=== PATIENT | male | born 1980 | race Caucasian/White ===

== ENCOUNTER 2020-08-03 14:15 | Outpatient (REF) | payer OTHER, SELFPAY ==
[2020-08-03 15:01] LABS: COVID-19 Test Negative (Negative)
== END 2020-08-03 14:16 | disposition home or self-care (01) ==
LOC: HO.EMPCOV 14:15
PROVIDERS: Visit Provider Internal Medicine
DX: Z20.828 Contact with and (suspected) exposure to other viral communicable diseases (principal)
CPT/HCPCS: 87635; C9803

== ENCOUNTER 2020-08-13 14:50 | Outpatient (REF) | payer OTHER, SELFPAY ==
[2020-08-13 15:09] LABS: COVID-19 Test Negative (Negative); IDNOW Serial# 55D5AD1C
== END 2020-08-13 14:51 | disposition home or self-care (01) ==
LOC: HO.EMPCOV 14:50
PROVIDERS: PCP Nurse Practitioner Family; Visit Provider Internal Medicine
DX: Z20.828 Contact with and (suspected) exposure to other viral communicable diseases (principal)
CPT/HCPCS: 87635; C9803

== ENCOUNTER 2020-08-26 09:43 | Outpatient (REF) | payer OTHER, SELFPAY ==
[2020-08-26 10:13] LABS: COVID-19 Test Negative (Negative); IDNOW Serial# 55D5AD1C
== END 2020-08-26 09:44 | disposition home or self-care (01) ==
LOC: HO.EMPCOV 09:43
PROVIDERS: Visit Provider Internal Medicine
DX: Z20.828 Contact with and (suspected) exposure to other viral communicable diseases (principal)
CPT/HCPCS: 87635; C9803

== ENCOUNTER 2020-09-21 11:21 | Outpatient (REF) | payer OTHER, SELFPAY ==
[2020-09-21 12:00] LABS: COVID-19 Test Negative (Negative)
== END 2020-09-21 11:22 | disposition home or self-care (01) ==
LOC: HO.EMPCOV 11:21
PROVIDERS: Visit Provider Internal Medicine
DX: Z20.822 Contact with and (suspected) exposure to COVID-19 (principal)
CPT/HCPCS: 36415; 87635; C9803

== ENCOUNTER 2020-10-23 15:09 | Outpatient (REF) | payer OTHER, SELFPAY ==
[2020-10-23 16:28] LABS: MANUAL DIFF FLAG NO
[2020-10-23 16:35] LABS: Basophils Absolute Auto 0.1 X10*3/uL (0.0-0.2); Basophils Percent Auto 0.7 % (0-2); Eosinophils Absolute Auto 0.3 X10*3/uL (0.0-0.4); Eosinophils Percent Auto 4.3 % (0-4); Hematocrit 43.4 % (42-52); Hemoglobin 15.3 g/dl (14.0-18.0); Imm Gran Abs Auto 0.01 X10*3/uL (0.00-0.03); Imm Gran Pct Auto 0.1 % (0.0-0.4); Mean Corpuscular HGB Conc 35.3 g/dl (31.0-36.0); Mean Corpuscular Hemoglobin 31.7 pg (27.0-33.0); Mean Platelet Volume 11.5 fL (9.4-12.4); Monocytes Absolute Auto 0.8 X10*3/uL (0.1-1.2); Monocytes Percent Auto 12.1 % (2-11); Neutrophils Absolute Auto 3.6 X10*3/uL (2.0-8.3); Neutrophils Percent Auto 53.8 % (45-73); Platelet Count 188 X10*3/uL (160-400); Red Blood Count 4.82 X10*6/uL (4.60-5.80); White Blood Count 6.7 X10*3/uL (4.8-10.8)
[2020-10-23 17:03] LABS: Alanine Aminotransferase 108 U/L (0-40); Albumin Level 4.6 g/dL (3.5-5.0); Alkaline Phosphatase 45 U/L (39-117); Anion Gap 13 (12-20); Aspartate Amino Transferase 42 U/L (5-37); Bilirubin Total 0.8 mg/dL (0.0-1.0); Blood Urea Nitrogen 18 mg/dL (9-16); C Reactive Protein 0.04 mg/dL (< or = 0.50); Calcium 9.4 mg/dL (8.4-10.2); Carbon Dioxide 26 mmol/L (22-29); Chloride 105 mmol/L (96-108); Estimated Glomerular Filt Rate > 60; Glucose Random 97 mg/dL (60-115); Potassium 4.2 mmol/L (3.3-5.1); Sodium 140 mmol/L (135-145); Total Protein 6.8 g/dL (6.5-8.0)
[2020-10-23 17:43] LABS: Erythrocyte Sedimentation Rate 2 MM/HR (0-15)
== END 2020-10-23 15:10 | disposition home or self-care (01) ==
LOC: HO.LAB 15:09
PROVIDERS: PCP Nurse Practitioner Family; Visit Provider Student in an Organized Health Care Education/Training Program
DX: M05.9 Rheumatoid arthritis with rheumatoid factor, unspecified (principal); L40.9 Psoriasis, unspecified; Z79.899 Other long term (current) drug therapy
CPT/HCPCS: 36415; 80053; 85025; 85652; 86140

== ENCOUNTER 2020-11-24 08:48 | Outpatient (REF) | payer OTHER, SELFPAY ==
[2020-11-24 10:29] LABS: Alanine Aminotransferase 70 U/L (0-40); Albumin Level 4.7 g/dL (3.5-5.0); Alkaline Phosphatase 41 U/L (39-117); Anion Gap 15 (12-20); Aspartate Amino Transferase 43 U/L (5-37); Bilirubin Total 1.1 mg/dL (0.0-1.0); Blood Urea Nitrogen 15 mg/dL (9-16); Calcium 9.6 mg/dL (8.4-10.2); Carbon Dioxide 28 mmol/L (22-29); Chloride 105 mmol/L (96-108); Estimated Glomerular Filt Rate > 60; Glucose Random 93 mg/dL (60-115); Potassium 4.7 mmol/L (3.3-5.1); Sodium 143 mmol/L (135-145); Total Protein 6.8 g/dL (6.5-8.0)
== END 2020-11-24 08:49 | disposition home or self-care (01) ==
LOC: HO.LAB 08:48
PROVIDERS: PCP Nurse Practitioner Family; Visit Provider Student in an Organized Health Care Education/Training Program
DX: M05.9 Rheumatoid arthritis with rheumatoid factor, unspecified (principal)
CPT/HCPCS: 36415; 80053

== ENCOUNTER 2020-12-04 12:52 | Outpatient (REF) | payer OTHER, SELFPAY ==
--- NOTE | ~2020-12-04 | MR_ITS ---
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 COMPARISON: None available. TECHNIQUE: Multiplanar, multisequence imaging of the brain was performed without intravenous contrast. FINDINGS: There is no acute infarction, mass, hemorrhage, or extra-axial collection. The ventricles, sulci, and basilar cisterns are normal in size and configuration. The cerebellar tonsils are normally positioned above the foramen magnum. The flow voids of the major intracranial arteries appear intact. The bones and extracranial soft tissues are unremarkable. There is minimal paranasal sinus mucosal thickening without fluid levels. No mastoid fluid is seen. The orbital contents appear grossly normal. MR/MR head/brain wo con IMPRESSION: No intracranial abnormality identified.
== END 2020-12-04 12:53 | disposition home or self-care (01) ==
LOC: HO.MRI 12:52
PROVIDERS: Visit Provider Nurse Practitioner Family
DX: G43.509 Persistent migraine aura without cerebral infarction, not intractable, without status migrainosus (principal)
CPT/HCPCS: 70551

== ENCOUNTER → 2021-01-19 15:01 | Outpatient (BNVA) | payer OTHER, SELFPAY | PROVIDERS: PCP Nurse Practitioner Family; Referring Provider Nurse Practitioner Family; Visit Provider Internal Medicine Cardiovascular Disease | DX: I25.10 Atherosclerotic heart disease of native coronary artery without angina pectoris (principal); I10 Essential (primary) hypertension | CPT/HCPCS: 93005 ==

== ENCOUNTER → 2021-01-26 15:00 | Outpatient (BNVA) | payer OTHER, SELFPAY | PROVIDERS: Visit Provider Student in an Organized Health Care Education/Training Program | DX: M05.9 Rheumatoid arthritis with rheumatoid factor, unspecified (principal) ==

== ENCOUNTER 2021-03-26 09:11 | Outpatient (REF) | payer OTHER, SELFPAY ==
[2021-03-26 10:12] LABS: MANUAL DIFF FLAG NO
[2021-03-26 10:19] LABS: Basophils Percent Auto 0.4 % (0-2); Eosinophils Absolute Auto 0.2 X10*3/uL (0.0-0.4); Eosinophils Percent Auto 2.2 % (0-4); Hematocrit 46.9 % (42-52); Hemoglobin 16.2 g/dl (14.0-18.0); Imm Gran Abs Auto 0.02 X10*3/uL (0.00-0.03); Imm Gran Pct Auto 0.3 % (0.0-0.4); Lymphocytes Absolute Auto 1.8 X10*3/uL (1.2-4.9); Lymphocytes Percent Auto 25.1 % (20-40); Mean Corpuscular HGB Conc 34.5 g/dl (31.0-36.0); Mean Corpuscular Hemoglobin 30.7 pg (27.0-33.0); Mean Corpuscular Volume 88.8 fL (80-98); Mean Platelet Volume 10.8 fL (9.4-12.4); Monocytes Absolute Auto 0.8 X10*3/uL (0.1-1.2); Monocytes Percent Auto 11.6 % (2-11); Neutrophils Absolute Auto 4.2 X10*3/uL (2.0-8.3); Neutrophils Percent Auto 60.4 % (45-73); Platelet Count 199 X10*3/uL (160-400); Red Blood Count 5.28 X10*6/uL (4.60-5.80); Red Cell Distribution Width 13.2 % (11.0-16.0)
[2021-03-26 10:42] LABS: Alanine Aminotransferase 61 U/L (0-40); Albumin Level 4.5 g/dL (3.5-5.0); Alkaline Phosphatase 45 U/L (39-117); Anion Gap 12 (12-20); Aspartate Amino Transferase 26 U/L (5-37); Bilirubin Total 1.1 mg/dL (0.0-1.0); Blood Urea Nitrogen 12 mg/dL (9-16); C Reactive Protein 0.05 mg/dL (< or = 0.50); Calcium 9.7 mg/dL (8.4-10.2); Carbon Dioxide 26 mmol/L (22-29); Chloride 107 mmol/L (96-108); Estimated Glomerular Filt Rate > 60; Glucose Random 90 mg/dL (60-115); Potassium 4.2 mmol/L (3.3-5.1); Sodium 141 mmol/L (135-145); Total Protein 6.9 g/dL (6.5-8.0)
== END 2021-03-26 09:12 | disposition home or self-care (01) ==
LOC: HO.LAB 09:11
PROVIDERS: Visit Provider Student in an Organized Health Care Education/Training Program
DX: M05.9 Rheumatoid arthritis with rheumatoid factor, unspecified (principal)
CPT/HCPCS: 36415; 80053; 85025; 86140

== ENCOUNTER → 2021-03-30 08:26 | Outpatient (BNVA) | payer OTHER, SELFPAY | PROVIDERS: PCP Nurse Practitioner Family; Visit Provider Student in an Organized Health Care Education/Training Program ==

== ENCOUNTER → 2021-05-26 08:41 | Outpatient (BNVA) | payer OTHER, SELFPAY | PROVIDERS: PCP Nurse Practitioner Family; Visit Provider Internal Medicine Pulmonary Disease ==

== ENCOUNTER → 2021-06-18 08:05 | Outpatient (BNVA) | payer OTHER, SELFPAY | PROVIDERS: PCP Nurse Practitioner Family; Visit Provider Nurse Practitioner Family ==

== ENCOUNTER → 2021-07-07 15:57 | Outpatient (REF) | payer OTHER, SELFPAY | LOC: HO.SL 15:57 | PROVIDERS: Visit Provider Internal Medicine Pulmonary Disease | DX: G47.30 Sleep apnea, unspecified (principal) | CPT/HCPCS: 95806 ==

== ENCOUNTER → 2021-09-22 14:23 | Outpatient (BNVA) | payer OTHER, SELFPAY | PROVIDERS: PCP Nurse Practitioner Family; Visit Provider Nurse Practitioner Family ==

== ENCOUNTER 2021-09-27 09:44 | Outpatient (REF) | payer OTHER, SELFPAY ==
[2021-09-27 09:55] LABS: MANUAL DIFF FLAG NO
[2021-09-27 10:20] LABS: Basophils Absolute Auto 0.1 X10*3/uL (0.0-0.2); Basophils Percent Auto 0.7 % (0-2); Eosinophils Absolute Auto 0.4 X10*3/uL (0.0-0.4); Eosinophils Percent Auto 5.2 % (0-4); Hematocrit 42.6 % (42.0-52.0); Hemoglobin 14.9 g/dl (14.0-18.0); Imm Gran Abs Auto 0.01 X10*3/uL (0.00-0.03); Imm Gran Pct Auto 0.1 % (0.0-0.4); Lymphocytes Absolute Auto 1.8 X10*3/uL (1.2-4.9); Lymphocytes Percent Auto 26.9 % (20-40); Mean Corpuscular Hemoglobin 30.4 pg (27.0-33.0); Mean Corpuscular Volume 86.9 fL (80.0-98.0); Mean Platelet Volume 10.9 fL (9.4-12.4); Monocytes Absolute Auto 0.7 X10*3/uL (0.1-1.2); Monocytes Percent Auto 10.7 % (2-11); Neutrophils Absolute Auto 3.8 x10*3/uL (2.0-8.3); Neutrophils Percent Auto 56.4 % (45-73); Platelet Count 186 X10*3/uL (160-400); Red Cell Distribution Width 13.4 % (11.0-16.0); White Blood Count 6.7 X10*3/uL (4.8-10.8)
[2021-09-27 11:01] LABS: Alanine Aminotransferase 92 U/L (0-40); Albumin Level 4.2 g/dL (3.5-5.0); Alkaline Phosphatase 46 U/L (39-117); Anion Gap 10 (12-20); Aspartate Amino Transferase 49 U/L (5-37); Bilirubin Total 0.8 mg/dL (0.0-1.0); Blood Urea Nitrogen 15 mg/dL (9-16); Calcium 9.7 mg/dL (8.4-10.2); Carbon Dioxide 28 mmol/L (22-29); Chloride 108 mmol/L (96-108); Estimated Glomerular Filt Rate > 60; Glucose Random 86 mg/dL (60-115); Potassium 4.1 mmol/L (3.3-5.1); Sodium 142 mmol/L (135-145); Total Protein 7.1 g/dL (6.5-8.0)
[2021-09-27 11:14] LABS: Erythrocyte Sedimentation Rate 5 MM/HR (0-15)
== END 2021-09-27 09:45 | disposition home or self-care (01) ==
LOC: HO.LAB 09:44
PROVIDERS: PCP Nurse Practitioner Family; Visit Provider Nurse Practitioner Family
DX: M05.9 Rheumatoid arthritis with rheumatoid factor, unspecified (principal)
CPT/HCPCS: 36415; 80053; 85025; 85652; 86140

== ENCOUNTER → 2021-10-29 08:27 | Outpatient (BNVA) | payer OTHER, SELFPAY | PROVIDERS: PCP Nurse Practitioner Family; Visit Provider Nurse Practitioner Family ==

== ENCOUNTER 2021-11-05 09:04 | Outpatient (REF) | payer OTHER, SELFPAY ==
[2021-11-05 09:33] LABS: MANUAL DIFF FLAG NO
[2021-11-05 10:25] LABS: Basophils Absolute Auto 0.1 X10*3/uL (0.0-0.2); Basophils Percent Auto 0.9 % (0-2); Eosinophils Absolute Auto 0.3 X10*3/uL (0.0-0.4); Eosinophils Percent Auto 4.2 % (0-4); Hematocrit 44.8 % (42.0-52.0); Hemoglobin 15.8 g/dl (14.0-18.0); Imm Gran Abs Auto 0.01 X10*3/uL (0.00-0.03); Imm Gran Pct Auto 0.2 % (0.0-0.4); Lymphocytes Absolute Auto 1.7 X10*3/uL (1.2-4.9); Lymphocytes Percent Auto 25.8 % (20-40); Mean Corpuscular HGB Conc 35.3 g/dl (31.0-36.0); Mean Corpuscular Hemoglobin 30.4 pg (27.0-33.0); Mean Corpuscular Volume 86.2 fL (80.0-98.0); Mean Platelet Volume 11.3 fL (9.4-12.4); Monocytes Absolute Auto 0.8 X10*3/uL (0.1-1.2); Monocytes Percent Auto 11.4 % (2-11); Neutrophils Absolute Auto 3.8 x10*3/uL (2.0-8.3); Neutrophils Percent Auto 57.5 % (45-73); Platelet Count 192 X10*3/uL (160-400); Red Cell Distribution Width 13.2 % (11.0-16.0); White Blood Count 6.6 X10*3/uL (4.8-10.8)
[2021-11-05 10:51] LABS: Alanine Aminotransferase 87 U/L (0-40); Albumin Level 4.5 g/dL (3.5-5.0); Alkaline Phosphatase 50 U/L (39-117); Anion Gap 10 (12-20); Aspartate Amino Transferase 42 U/L (5-37); Bilirubin Total 1.1 mg/dL (0.0-1.0); Blood Urea Nitrogen 15 mg/dL (9-16); C Reactive Protein 0.18 mg/dL (< or = 0.50); Calcium 9.9 mg/dL (8.4-10.2); Carbon Dioxide 28 mmol/L (22-29); Chloride 107 mmol/L (96-108); Estimated Glomerular Filt Rate > 60; Glucose Random 79 mg/dL (60-115); Potassium 4.4 mmol/L (3.3-5.1); Sodium 141 mmol/L (135-145); Total Protein 7.5 g/dL (6.5-8.0)
[2021-11-05 11:03] LABS: Erythrocyte Sedimentation Rate 5 MM/HR (0-15)
[2021-11-05 11:12] LABS: HBS Num1 22.78 mIU/mL (0-7.99); HBc Num1 0.07 S/CO (0.00-0.79); Hepatitis A Antibody IgM 0.27 Index (0-0.79); Hepatitis B Core Antibody Nonreactive (Nonreactive); ~HepC Num1 0.07 S/CO (0.00-0.79); ~Hepatitis A Antibody IgM Nonreactive (Nonreactive); ~Hepatitis B Surface Antibody REACTIVE (Nonreactive); ~Hepatitis C Antibody Nonreactive (Nonreactive)
[2021-11-05 11:13] LABS: HBsAGNum1 0.28 S/CO (0.00-0.99); Hepatitis B Surface Antigen Negative (Negative)
[2021-11-07 19:32] LABS: TS Negative Control Passed; TS Panel A 1; TS Panel B 0; TS Positive Control Passed; TSpotTB Negative (Negative)
== END 2021-11-05 09:05 | disposition home or self-care (01) ==
LOC: HO.LAB 09:04
PROVIDERS: Visit Provider Nurse Practitioner Family
DX: Z11.1 Encounter for screening for respiratory tuberculosis (principal); M05.9 Rheumatoid arthritis with rheumatoid factor, unspecified
CPT/HCPCS: 36415; 80053; 85025; 85652; 86140; 86481; 86704; 86706; 86709; 86803; 87340

== ENCOUNTER → 2021-12-16 08:34 | Outpatient (BNVA) | payer OTHER, SELFPAY | PROVIDERS: PCP Nurse Practitioner Family; Visit Provider Nurse Practitioner Family ==

== ENCOUNTER → 2022-01-20 14:56 | Outpatient (BNVA) | payer OTHER, SELFPAY | PROVIDERS: PCP Nurse Practitioner Family; Referring Provider Nurse Practitioner Family; Visit Provider Internal Medicine Cardiovascular Disease | DX: I25.10 Atherosclerotic heart disease of native coronary artery without angina pectoris (principal) ==

== ENCOUNTER 2022-05-05 08:36 | Outpatient (REF) | payer OTHER, SELFPAY ==
[2022-05-05 08:53] LABS: MANUAL DIFF FLAG NO
[2022-05-05 09:54] LABS: Basophils Absolute Auto 0.1 X10*3/uL (0.0-0.2); Basophils Percent Auto 0.9 % (0-2); Eosinophils Absolute Auto 0.3 X10*3/uL (0.0-0.4); Eosinophils Percent Auto 3.7 % (0-4); Hematocrit 43.4 % (42.0-52.0); Hemoglobin 15.2 g/dl (14.0-18.0); Imm Gran Abs Auto 0.03 X10*3/uL (0.00-0.03); Imm Gran Pct Auto 0.4 % (0.0-0.4); Lymphocytes Absolute Auto 1.3 X10*3/uL (1.2-4.9); Lymphocytes Percent Auto 18.8 % (20-40); Mean Corpuscular Hemoglobin 30.5 pg (27.0-33.0); Mean Corpuscular Volume 87.1 fL (80.0-98.0); Mean Platelet Volume 11.4 fL (9.4-12.4); Monocytes Absolute Auto 0.7 X10*3/uL (0.1-1.2); Monocytes Percent Auto 10.3 % (2-11); Neutrophils Absolute Auto 4.4 x10*3/uL (2.0-8.3); Neutrophils Percent Auto 65.9 % (45-73); Platelet Count 192 X10*3/uL (160-400); Red Blood Count 4.98 X10*6/uL (4.60-5.80); Red Cell Distribution Width 13.2 % (11.0-16.0); White Blood Count 6.7 X10*3/uL (4.8-10.8)
[2022-05-05 10:37] LABS: Alanine Aminotransferase 66 U/L (0-40); Albumin Level 4.5 g/dL (3.5-5.0); Alkaline Phosphatase 57 U/L (39-117); Anion Gap 14 (12-20); Aspartate Amino Transferase 45 U/L (5-37); Bilirubin Total 1.1 mg/dL (0.0-1.0); Blood Urea Nitrogen 15 mg/dL (9-16); C Reactive Protein 0.12 mg/dL (< or = 0.50); Calcium 9.4 mg/dL (8.4-10.2); Carbon Dioxide 26 mmol/L (22-29); Chloride 106 mmol/L (96-108); Cholesterol 83 mg/dL; Estimated Glomerular Filt Rate > 60; Glucose Random 83 mg/dL (60-115); HDL Cholesterol 32 mg/dL; LDL Cholesterol Calculated 41 mg/dl; Potassium 4.3 mmol/L (3.3-5.1); Sodium 142 mmol/L (135-145); Total Protein 6.9 g/dL (6.5-8.0); Triglycerides 50 mg/dL
[2022-05-05 10:38] LABS: Erythrocyte Sedimentation Rate 5 MM/HR (0-15)
[2022-05-07 15:41] LABS: CRP High Sensitivity 1.1 mg/L
== END 2022-05-05 08:37 | disposition home or self-care (01) ==
LOC: HO.LAB 08:36
PROVIDERS: Absent Provider Nurse Practitioner Family; PCP Nurse Practitioner Family; Visit Provider Internal Medicine Cardiovascular Disease
DX: I25.10 Atherosclerotic heart disease of native coronary artery without angina pectoris (principal); E78.5 Hyperlipidemia, unspecified; M05.9 Rheumatoid arthritis with rheumatoid factor, unspecified
CPT/HCPCS: 36415; 80053; 80061; 85025; 85652; 86140; 86141

== ENCOUNTER → 2022-10-05 12:57 | Outpatient (BNVA) | payer OTHER, SELFPAY | PROVIDERS: PCP Nurse Practitioner Family; Visit Provider Nurse Practitioner Family | DX: Z13.89 Encounter for screening for other disorder (principal) ==

== ENCOUNTER 2022-10-10 08:14 | Outpatient (REF) | payer OTHER, SELFPAY ==
[2022-10-10 08:24] LABS: MANUAL DIFF FLAG NO
[2022-10-10 09:29] LABS: Basophils Absolute Auto 0.1 X10*3/uL (0.0-0.2); Basophils Percent Auto 1.1 % (0-2); Eosinophils Absolute Auto 0.6 X10*3/uL (0.0-0.4); Eosinophils Percent Auto 7.2 % (0-4); Hematocrit 46.2 % (42.0-52.0); Hemoglobin 16.1 g/dl (14.0-18.0); Imm Gran Abs Auto 0.03 X10*3/uL (0.00-0.03); Imm Gran Pct Auto 0.4 % (0.0-0.4); Lymphocytes Absolute Auto 1.7 X10*3/uL (1.2-4.9); Lymphocytes Percent Auto 20.4 % (20-40); Mean Corpuscular HGB Conc 34.8 g/dl (31.0-36.0); Mean Corpuscular Hemoglobin 30.7 pg (27.0-33.0); Mean Platelet Volume 11.6 fL (9.4-12.4); Monocytes Percent Auto 11.6 % (2-11); Neutrophils Absolute Auto 4.8 x10*3/uL (2.0-8.3); Neutrophils Percent Auto 59.3 % (45-73); Platelet Count 200 X10*3/uL (160-400); Red Blood Count 5.25 X10*6/uL (4.60-5.80); Red Cell Distribution Width 13.6 % (11.0-16.0); White Blood Count 8.2 X10*3/uL (4.8-10.8)
[2022-10-10 09:58] LABS: Alanine Aminotransferase 64 U/L (0-40); Aspartate Amino Transferase 31 U/L (5-37); C Reactive Protein < 0.10 mg/dL (< or = 0.50); Estimated Glomerular Filt Rate > 60
[2022-10-10 10:09] LABS: Erythrocyte Sedimentation Rate 3 MM/HR (0-15)
== END 2022-10-10 08:15 | disposition home or self-care (01) ==
LOC: HO.LAB 08:14
PROVIDERS: PCP Nurse Practitioner Family; Visit Provider Nurse Practitioner Family
DX: M05.9 Rheumatoid arthritis with rheumatoid factor, unspecified (principal); Z79.899 Other long term (current) drug therapy
CPT/HCPCS: 36415; 82565; 84450; 84460; 85025; 85652; 86140

== ENCOUNTER → 2022-10-11 11:03 | Outpatient (BNVA) | payer OTHER, SELFPAY | PROVIDERS: PCP Nurse Practitioner Family; Visit Provider Nurse Practitioner Family | DX: Z13.89 Encounter for screening for other disorder (principal) ==

== ENCOUNTER → 2022-11-30 15:25 | Outpatient (BNVA) | payer OTHER, SELFPAY | PROVIDERS: PCP Nurse Practitioner Family; Visit Provider Nurse Practitioner Family | DX: Z13.89 Encounter for screening for other disorder (principal) ==

== ENCOUNTER 2023-01-16 10:06 | Outpatient (REF) | payer OTHER, SELFPAY ==
[2023-01-16 10:20] LABS: MANUAL DIFF FLAG NO
[2023-01-16 10:46] LABS: Basophils Absolute Auto 0.1 X10*3/uL (0.0-0.2); Basophils Percent Auto 1.2 % (0-2); Eosinophils Absolute Auto 0.5 X10*3/uL (0.0-0.4); Eosinophils Percent Auto 5.9 % (0-4); Hematocrit 44.7 % (42.0-52.0); Hemoglobin 15.7 g/dl (14.0-18.0); Imm Gran Abs Auto 0.02 X10*3/uL (0.00-0.03); Imm Gran Pct Auto 0.2 % (0.0-0.4); Lymphocytes Absolute Auto 1.9 X10*3/uL (1.2-4.9); Lymphocytes Percent Auto 23.6 % (20-40); Mean Corpuscular HGB Conc 35.1 g/dl (31.0-36.0); Mean Corpuscular Hemoglobin 30.9 pg (27.0-33.0); Mean Platelet Volume 11.1 fL (9.4-12.4); Monocytes Absolute Auto 0.8 X10*3/uL (0.1-1.2); Monocytes Percent Auto 10.2 % (2-11); Neutrophils Absolute Auto 4.8 x10*3/uL (2.0-8.3); Neutrophils Percent Auto 58.9 % (45-73); Platelet Count 185 X10*3/uL (160-400); Red Blood Count 5.08 X10*6/uL (4.60-5.80); Red Cell Distribution Width 13.6 % (11.0-16.0); White Blood Count 8.1 X10*3/uL (4.8-10.8)
[2023-01-16 11:42] LABS: Erythrocyte Sedimentation Rate 2 MM/HR (0-15)
[2023-01-16 11:42] LABS: Alanine Aminotransferase 107 U/L (0-40); Albumin Level 4.5 g/dL (3.5-5.0); Alkaline Phosphatase 46 U/L (39-117); Anion Gap 12 (12-20); Aspartate Amino Transferase 45 U/L (5-37); Bilirubin Total 1.3 mg/dL (0.0-1.0); Blood Urea Nitrogen 13 mg/dL (9-16); C Reactive Protein < 0.10 mg/dL (< or = 0.50); Calcium 9.7 mg/dL (8.4-10.2); Carbon Dioxide 26 mmol/L (22-29); Chloride 107 mmol/L (96-108); Estimated Glomerular Filt Rate > 60; Glucose Random 83 mg/dL (60-115); Potassium 4.4 mmol/L (3.3-5.1); Sodium 141 mmol/L (135-145); Total Protein 6.8 g/dL (6.5-8.0)
== END 2023-01-16 10:07 | disposition home or self-care (01) ==
LOC: HO.LAB 10:06
PROVIDERS: PCP Nurse Practitioner Family; Visit Provider Nurse Practitioner Family
DX: M05.9 Rheumatoid arthritis with rheumatoid factor, unspecified (principal)
CPT/HCPCS: 36415; 80053; 85025; 85652; 86140

== ENCOUNTER → 2023-01-18 13:54 | Outpatient (BNVA) | payer OTHER, SELFPAY | PROVIDERS: PCP Nurse Practitioner Family; Visit Provider Nurse Practitioner Family ==

== ENCOUNTER 2023-03-31 09:13 | Outpatient (REF) | payer OTHER, SELFPAY ==
[2023-03-31 10:30] LABS: Alanine Aminotransferase 88 U/L (0-40); Aspartate Amino Transferase 37 U/L (5-37)
== END 2023-03-31 09:14 | disposition home or self-care (01) ==
LOC: HO.LAB 09:13
PROVIDERS: PCP Nurse Practitioner Family; Visit Provider Nurse Practitioner Family
DX: Z79.899 Other long term (current) drug therapy (principal)
CPT/HCPCS: 36415; 84450; 84460

== ENCOUNTER 2023-04-04 14:18 | Outpatient (AMB) | payer OTHER, SELFPAY ==
[2023-04-04 14:22] VITALS: BP 128/74; PULSE 58; RESP 16; TEMP 36.5; O2SAT 97; BMI 41.8
--- NOTE | 2023-04-04 14:22 | MHC.OFFVIS ---
Intake Vital Signs 04/04/23 14:22 Height 5 ft 7 in Weight 267 lb BMI 41.8 BP 128/74 Blood Pressure Location Rt brachial Position Sitting Respiration 16 Pulse 58 Pulse Source Pulse Oximeter Temp 97.7 F Temp Source Temporal Artery Scan Pulse Oximetry (%) 97 Oxygen Delivery Method Room Air Intake Visit Reasons: Psoriatic arthritis - LVM with appt Allergies No Known Allergies Allergy (Verified 04/04/23 14:27) Medication List - Last Reconciled 04/04/23 by Demario Edwards MD aspirin (Adult Low Dose Aspirin) 81 mg PO DAILY atorvastatin 80 mg PO DAILY certolizumab pegol (Cimzia) 400 mg (2 mL) subcut Q4W clobetasol 0.05% 1 appl topical BID clobetasol 0.05% grams topical BID PRN ezetimibe 10 mg PO DAILY lisinopril 10 mg PO DAILY HPI HPI Comments History of Present Illness Details This is a 42-year-old male with seropositive RA and psoriasis who presents for follow-up. Patient has been on Cimzia 400 mg every 4 weeks since October of 2022. Over the last 2 weeks patient has been getting pain and swelling of both ankles worse in his right ankle as well as intermittent pain and stiffness of his wrists and hands. The pain and stiffness is generally worse in the morning. States that his psoriasis is about the same. Continues to have patches on his elbows and knees. States that he will schedule light therapy for psoriasis sometime soon. [facility] Medical History CAD (coronary artery disease) HTN (hypertension) Ischemic cardiomyopathy Obesity Seropositive rheumatoid arthritis Sleep apnea Surgical History Status post cardiac surgery Family History Father CVD (cardiovascular disease) Mother No problems noted. Maternal Grandfather CVD (cardiovascular disease) Social History Alcohol intake: current Alcohol intake frequency: a few times a month Alcohol type: beer and hard liquor Patient Tobacco Use Status: Never used Tobacco e-Cigarette/Vaping Use: Never Used Review of Systems Musc Reports arthralgias, Reports joint swelling and Reports stiffness Skin/Breast Reports rash Physical Exam Vital Signs: Last Vital Signs Temp 97.7 F 04/04/23 14:22 Pulse 58 04/04/23 14:22 Resp 16 04/04/23 14:22 BP 128/74 04/04/23 14:22 Pulse Ox 97 04/04/23 14:22 Oxygen Delivery Method Room Air 04/04/23 14:22 BMI result Body Mass Index 41.8 Const General: cooperative, healthy appearing and comfortable Nutritional Appearance: obese morbidly obese Orientation/consciousness: patient oriented x3 Limitations: no limitations HEENT Head: Yes normocephalic and Yes atraumatic Mouth: moist mucous membranes Resp Effort & Inspection: normal respiratory effort and able to speak in complete sentences Auscultation: clear to auscultation bilaterally Skin Other: Extensive Psoriasis patches on both elbows and knees. Neuro General: patient oriented x3 Extrem Other: Bilateral wrist tenderness to palpation and pain with full flexion and extension Left 2nd MCP swelling without significant tenderness Significant right ankle swelling , warmth and tenderness Left ankle tenderness and warmth. Assessment & Plan Assessment & Plan (1) Seropositive rheumatoid arthritis: Comment: ++RF+++CCP Methotrexate- November 2018-May 2020-elevated liver function Enbrel- February 2019-May 2020-continued joint pain Humira- January 2021- October 2021- increased psoriasis Orencia- November 2021 to self stopped by patient September 2022 due to increased psoriasis Cimzia-October 2022-present Code(s): M05.9 - Rheumatoid arthritis with rheumatoid factor, unspecified Plan: This is a 42-year-old Seropositive rheumatoid arthritis (RF++ CCP++) currently on Cimzia 400 mg subcutaneous every 4 weeks. On exam patient has multiple swollen and tender joints especially his right ankle. Advised patient to change the Cimzia dosing schedule to 200 mg every 2 weeks. Start Medrol trial for current flare. Of note decision was made to avoid Xeljanz and Rinvoq due to patient's premature coronary artery disease. Patient follows with Cardiology, his ejection fraction is normal on 2 D echo from 2018, 60-65%. He had prior PTCA of the RPLV branch for acute coronary syndrome.? Per cardiology the plan is to continue lifelong aspirin therapy, also continue atorvastatin and Zetia. Labs before next visit in 3 months (2) Psoriasis: Code(s): L40.9 - Psoriasis, unspecified Plan: Continues to have multiple patches especially on elbows and knees. Patient continues to use clobetasol cream but it is not quite effective. States that he will be scheduling light therapy soon Plan I spent 26 minutes reviewing patient's chart, evaluating patient, ordering diagnostic workup, counseling patient and documenting in the chart Orders: Orders Complete Blood Count Auto Diff 3 Months M05.9 - Rheumatoid arthritis with rheumatoid factor, unspecified Comprehensive Met. Panel 3 Months M05.9 - Rheumatoid arthritis with rheumatoid factor, unspecified C Reactive Protein 3 Months M05.9 - Rheumatoid arthritis with rheumatoid factor, unspecified Erythrocyte Sedimentation Rate 3 Months M05.9 - Rheumatoid arthritis with rheumatoid factor, unspecified Hepatitis A,B,C Profile 3 Months Z11.59 - Encounter for screening for other viral diseases T Spot TB 3 Months Z11.7 - Encounter for testing for latent tuberculosis infection Immunofixation Pnl, Serum 3 Months M05.9 - Rheumatoid arthritis with rheumatoid factor, unspecified Protein Electrophoresis, Serum 3 Months M05.9 - Rheumatoid arthritis with rheumatoid factor, unspecified Medications: New methylprednisolone (Medrol) Take 3 tabs by mouth once daily with breakfast for 1 week then 2 tabs daily for 1 week then 1 tab daily for 1 week then stop 42 tabs 0RF Coding Level of Care Code Est Pt Level 4 (01034) Diagnoses Seropositive rheumatoid arthritis M05.9 Psoriasis L40.9
== END 2023-04-04 14:57 | disposition home or self-care (01) ==
PROVIDERS: PCP Nurse Practitioner Family; Visit Provider Student in an Organized Health Care Education/Training Program
DX: M05.89 Other rheumatoid arthritis with rheumatoid factor of multiple sites (principal); L40.9 Psoriasis, unspecified
CPT/HCPCS: 99214

== ENCOUNTER → 2023-04-04 14:18 | Outpatient (BNVA) | payer OTHER, SELFPAY | PROVIDERS: PCP Nurse Practitioner Family; Visit Provider Student in an Organized Health Care Education/Training Program ==

== ENCOUNTER 2023-06-06 09:54 | Outpatient (REF) | payer OTHER, SELFPAY | END 2023-06-06 09:55 | disposition home or self-care (01) | LOC: HO.XRAY 09:54 | PROVIDERS: PCP Nurse Practitioner Family; Visit Provider Student in an Organized Health Care Education/Training Program | DX: M05.9 Rheumatoid arthritis with rheumatoid factor, unspecified (principal); L40.9 Psoriasis, unspecified | CPT/HCPCS: 73110; 73130; 73610; 73630 ==

== ENCOUNTER 2023-06-06 09:54 | Outpatient (AMB) | payer OTHER, SELFPAY ==
--- NOTE | 2023-06-06 10:02 | MHC.OFFVIS ---
Intake Vital Signs 06/06/23 10:03 Height 5 ft 7 in Weight 271 lb 2.697 oz BMI 42.5 BP 116/78 Blood Pressure Location Rt brachial Position Sitting Pulse 58 Pulse Source Pulse Oximeter Temp 97.8 F Temp Source Skin Pulse Oximetry (%) 96 Intake Visit Reasons: RA Intake Note: Pt seen today for RA follow up. C/O increased pain, and swelling on L wrist, ankles, and knuckles. Symptoms worsened this weekend. Patient was seen by [facility] and they wanted to start patient on Stelara but wanted Dr. Edwards to be aware first. Recent note from 06/02/23 is in chart. Patient has not been able to sleep due to this pain. Patient has tried Motrin with no relief. Biopsy done- has follow up on Seed Cutter Required: No Accompanied by: Self / Same As Patient Allergies No Known Allergies Allergy (Verified 06/06/23 10:05) HPI HPI Comments History of Present Illness Details This is a 42-year-old male with seropositive RA and psoriasis who presents for follow-up. Patient split the Cimzia dose to 200 mg every other week, he ran out of Cimzia 3-4 weeks ago. States that Medrol taper provides relief initially then he starts to flare with itchy rashes as soon as it starts getting tapered. He is complaining of bilateral wrist pain worse on the left as well as right ankle pain and swelling. He was recently evaluated by Dermatology and had a skin biopsy. He has a follow-up visit with them 2 days from today. States that they are planning to start him on Stelara [facility] Medical History (Updated 06/06/23 @ 12:45 by Demario Edwards MD) Obesity Sleep apnea HTN (hypertension) CAD (coronary artery disease) Ischemic cardiomyopathy Seropositive rheumatoid arthritis Surgical History S/P skin biopsy Status post cardiac surgery Family History Father CVD (cardiovascular disease) Mother No problems noted. Maternal Grandfather CVD (cardiovascular disease) Social History Alcohol intake: current Alcohol intake frequency: a few times a month Alcohol type: beer and hard liquor Patient Tobacco Use Status: Never used Tobacco e-Cigarette/Vaping Use: Never Used Review of Systems [facility] Reports arthralgias, Reports joint swelling and Reports stiffness Skin/Breast Reports rash Physical Exam Vital Signs: Last Vital Signs Temp 97.8 F 06/06/23 10:03 Pulse 58 06/06/23 10:03 BP 116/78 06/06/23 10:03 Pulse Ox 96 06/06/23 10:03 BMI result Body Mass Index 42.5 Const General: cooperative, healthy appearing and comfortable Nutritional Appearance: obese morbidly obese Orientation/consciousness: patient oriented x3 Limitations: no limitations HEENT Head: Yes normocephalic and Yes atraumatic Mouth: moist mucous membranes Resp Effort & Inspection: normal respiratory effort and able to speak in complete sentences Auscultation: clear to auscultation bilaterally Skin Other: Extensive Psoriasis patches on both elbows and knees. Neuro General: patient oriented x3 Extrem Other: Left wrist swelling, tenderness to palpation and pain with flexion and extension Left 2nd MCP swelling without significant tenderness. Positive MCP squeeze test Significant right ankle swelling , warmth and tenderness Nail pitting of right ring finger Assessment & Plan Assessment & Plan (1) Seropositive rheumatoid arthritis: Comment: ++RF+++CCP Methotrexate- November 2018-May 2020-elevated liver function Enbrel- February 2019-May 2020-continued joint pain Humira- January 2021- October 2021- increased psoriasis Orencia- November 2021 to self stopped by patient September 2022 due to increased psoriasis Cimzia-10/2022-05/2023 ongoing arthritis & worsening rashes Code(s): M05.9 - Rheumatoid arthritis with rheumatoid factor, unspecified Plan: This is a 42-year-old Seropositive rheumatoid arthritis (RF++ CCP+++) and psoriasis who presents for follow up. Last Cimzia dose was 3-4 weeks ago. On exam patient continues to have multiple swollen and tender joints as well as moderately active psoriasis rashes. The etiology of his inflammatory arthritis is not entirely clear as patient is seropositive for RA and has significant psoriasis with nail pitting. Will check x-rays of involved joints looking for signs favoring 1 diagnosis over the other. Patient has tried and failed/could not tolerate multiple DMARDs that are used for RA and psoriatic arthritis. Of note decision was made to avoid Radha due to patient's premature coronary artery disease. Patient follows with Cardiology, his ejection fraction is normal on 2 D echo from 2019, 60-65%. He had prior PTCA of the RPLV branch for acute coronary syndrome.? Per cardiology the plan is to continue lifelong aspirin therapy, also continue atorvastatin and Zetia. Per patient he is to be started on Stelara next visit by Dermatology. Will monitor his inflammatory arthritis on Stelara. Can consider adding leflunomide and/or sulfasalazine in the future Labs before next visit in 3 months (2) Psoriasis: Code(s): L40.9 - Psoriasis, unspecified Plan: Continues to have multiple patches especially on elbows and knees. Recently had a skin biopsy. Per patient he will be started on Stelara by Dermatology this week. Plan I spent 26 minutes reviewing patient's chart, evaluating patient, ordering diagnostic workup, counseling patient and documenting in the chart Orders: Orders XR ankle LT min 3V Today M05.9 - Rheumatoid arthritis with rheumatoid factor, unspecified XR ankle RT min 3V Today M05.9 - Rheumatoid arthritis with rheumatoid factor, unspecified XR foot LT min 3V Today M05.9 - Rheumatoid arthritis with rheumatoid factor, unspecified XR foot RT min 3V Today M05.9 - Rheumatoid arthritis with rheumatoid factor, unspecified Erythrocyte Sedimentation Rate 3 Months M05.9 - Rheumatoid arthritis with rheumatoid factor, unspecified XR hand wrist LT Today M05.9 - Rheumatoid arthritis with rheumatoid factor, unspecified XR hand wrist RT Today M05.9 - Rheumatoid arthritis with rheumatoid factor, unspecified Complete Blood Count Auto Diff 3 Months M05.9 - Rheumatoid arthritis with rheumatoid factor, unspecified Comprehensive Met. Panel 3 Months M05.9 - Rheumatoid arthritis with rheumatoid factor, unspecified C Reactive Protein 3 Months M05.9 - Rheumatoid arthritis with rheumatoid factor, unspecified Coding Level of Care Code Est Pt Level 4 (10193) Diagnoses Seropositive rheumatoid arthritis M05.9 Psoriasis L40.9
[2023-06-06 10:03] VITALS: BP 116/78; PULSE 58; TEMP 36.6; O2SAT 96; BMI 42.5
== END 2023-06-06 10:36 | disposition home or self-care (01) ==
PROVIDERS: PCP Nurse Practitioner Family; Visit Provider Student in an Organized Health Care Education/Training Program
DX: M05.79 Rheumatoid arthritis with rheumatoid factor of multiple sites without organ or systems involvement (principal); L40.9 Psoriasis, unspecified
CPT/HCPCS: 99213

== ENCOUNTER 2023-06-27 13:39 | Outpatient (AMB) | payer OTHER, SELFPAY ==
[2023-06-27 13:41] VITALS: BP 124/68; PULSE 72; TEMP 36.1; BMI 41.8
--- NOTE | 2023-06-27 13:41 | MHC.OFFVIS ---
Intake Vital Signs 06/27/23 13:41 Height 5 ft 7 in Weight 267 lb 3.204 oz BMI 41.8 BP 124/68 Blood Pressure Location Rt brachial Position Sitting Pulse 72 Pulse Source Pulse Oximeter Temp 97.0 F Temp Source Skin Intake Visit Reasons: Hand pain/inj Intake Note: Pt presents today for follow up. C/o left wrist and right ankle pain. Started Skyrizi with Derm. Account Services Representative Required: No Accompanied by: Self / Same As Patient Allergies No Known Allergies Allergy (Verified 06/27/23 13:44) Medication List - Last Reconciled 06/27/23 by Demario Edwards MD aspirin (Adult Low Dose Aspirin) 81 mg PO DAILY atorvastatin 80 mg PO DAILY clobetasol 0.05% 1 appl topical BID clobetasol 0.05% grams topical BID PRN ezetimibe 10 mg PO DAILY lisinopril 10 mg PO DAILY HPI HPI Comments History of Present Illness Details 42-year-old male with seropositive erosive RA and psoriasis returns for follow-up. Continues to have multiple joint pain but majority of his pain is in his left wrist, he also has right ankle pain especially with moving it in certain directions. He received the 1st skyrizi dose 06/17/2023 Initial history: This is a 42-year-old male with seropositive RA and psoriasis who presents for follow-up. Patient split the Cimzia dose to 200 mg every other week, he ran out of Cimzia 3-4 weeks ago. States that Medrol taper provides relief initially then he starts to flare with itchy rashes as soon as it starts getting tapered. He is complaining of bilateral wrist pain worse on the left as well as right ankle pain and swelling. He was recently evaluated by Dermatology and had a skin biopsy. He has a follow-up visit with them 2 days from today. States that they are planning to start him on Stelara [facility] Medical History Obesity Sleep apnea HTN (hypertension) CAD (coronary artery disease) Ischemic cardiomyopathy Seropositive rheumatoid arthritis Surgical History S/P skin biopsy Status post cardiac surgery Family History Father CVD (cardiovascular disease) Mother No problems noted. Maternal Grandfather CVD (cardiovascular disease) Social History Alcohol intake: current Alcohol intake frequency: a few times a month Alcohol type: beer and hard liquor Patient Tobacco Use Status: Never used Tobacco e-Cigarette/Vaping Use: Never Used Review of Systems Musc Reports arthralgias, Reports joint swelling and Reports stiffness Skin/Breast Reports rash Physical Exam Vital Signs: Last Vital Signs Temp 97.0 F 06/27/23 13:41 Pulse 72 06/27/23 13:41 BP 124/68 06/27/23 13:41 BMI result Body Mass Index 41.8 Const General: cooperative, healthy appearing and comfortable Nutritional Appearance: obese morbidly obese Orientation/consciousness: patient oriented x3 Limitations: no limitations HEENT Head: Yes normocephalic and Yes atraumatic Mouth: moist mucous membranes Resp Effort & Inspection: normal respiratory effort and able to speak in complete sentences Auscultation: clear to auscultation bilaterally Skin Other: Extensive Psoriasis patches on both elbows and knees. Neuro General: patient oriented x3 Extrem Other: Left wrist swelling, tenderness to palpation and pain with flexion and extension Left 2nd MCP swelling without significant tenderness. Positive MCP squeeze test Significant right ankle swelling , warmth and tenderness Nail pitting of right ring finger Right ankle swelling and warmth Office Procedures Joint Injection/Drain Joint Injection/Drain Details: Left wrist Prep: site was prepped using sterile technique and ethochloride spray was applied Injected: 20 mg of, Kenalog and other (0.2 mL of 1% lidocaine) Procedure: The patient tolerated the procedure well Coding Details: The dorsum of the left wrist was prepped with ChloraPrep, then using a 27 gauge needle 20 mg of triamcinolone mixed with 0.2 cc of 1% lidocaine was injected into the wrist joint space. Patient tolerated the procedure well with no acute adverse events 71663 - Medium joint Procedure code (CPT) selection complete Results Reviewed Results Reviewed: CLINICAL INFORMATION: Rheumatoid arthritis. COMPARISON: Radiographs 11/19/2018. TECHNIQUE: 4 views of each hand/wrist. 3 views of each ankle. 3 views of each foot. FINDINGS: Right hand/wrist: No joint space narrowing. No periarticular osteopenia, erosion, or suspicious soft tissue calcification. No acute abnormality. Left hand/wrist: There is narrowing and there are marginal erosions of the 1st and 2nd MCP joints that are new since 11/19/2018. These are of uncertain chronicity. There is dorsal soft tissue swelling of the 2nd metacarpophalangeal joint suggesting there may be an active inflammatory component. Carpal joint spaces are preserved. Right ankle/foot: The ankle mortise is preserved. Medial ankle soft tissue swelling. No definite ankle joint effusion. No periarticular osteopenia, erosions, or suspicious soft tissue calcifications. Left ankle/foot: The ankle mortise is preserved. No periarticular osteopenia, erosions, or suspicious soft tissue calcifications. No acute abnormality. XR/XR hand wrist RT IMPRESSION: 1. There are marginal erosions and joint space narrowing of the 1st and 2nd metacarpophalangeal joints of the left hand that are new since 11/19/2018. These are of uncertain chronicity. There is dorsal soft tissue swelling of the 2nd metacarpophalangeal joint suggesting there may be an active inflammatory component. 2. No additional abnormalities of either hand/wrist or either ankle/foot. No suspicious soft tissue calcifications. Assessment & Plan Assessment & Plan (1) Seropositive rheumatoid arthritis: Comment: ++RF+++CCP Methotrexate- November 2018-May 2020-elevated liver function Enbrel- February 2019-May 2020-continued joint pain Humira- January 2021- October 2021- increased psoriasis Orencia- November 2021 to self stopped by patient September 2022 due to increased psoriasis Cimzia-10/2022-05/2023 ongoing arthritis & worsening rashes Code(s): M05.9 - Rheumatoid arthritis with rheumatoid factor, unspecified Plan: This is a 42-year-old Seropositive erosive rheumatoid arthritis (RF++ CCP+++) and psoriasis who presents for follow up. Patient continues to have multiple swollen and tender joints. With his consent left wrist was injected with Kenalog today. Patient has tried and failed/could not tolerate multiple DMARDs that are used for RA and psoriatic arthritis. He cannot get methotrexate or leflunomide due to transaminitis. He failed multiple TNF inhibitors such as Enbrel, Humira, Cimzia. He also failed Orencia due to worsening psoriasis. MICHAEL inhibitors would be avoided due to his history of premature coronary atherosclerosis. I reviewed his repeat hand x-rays which are more consistent with erosive changes in rheumatoid arthritis rather than psoriatic arthritis. Patient received 1 dose of Skyrizi in the middle of June. I called patient's grey tender VALERIE Correa at noon and then Dermatology and the plan at this point is to stop skyrizi and start rituximab. Will start prior authorization for rituximab. Plan for rituximab 1 g times 2 doses 14 days apart. First infusion in the middle of July Labs tomorrow and before next visit in 10 weeks (2) Psoriasis: Code(s): L40.9 - Psoriasis, unspecified Plan: Continues to have multiple patches especially on elbows and knees. As mentioned above, discussed with patient's grey tender, phototherapy will be arranged. (3) Immunization counseling: Code(s): Z71.85 - Encounter for immunization safety counseling Plan: Discussed ACR vaccination guidelines for adults with autoimmune rheumatic disease on immune suppression. Discussed risk of COVID infection with rituximab infusion and advised patient to get both the flu vaccine for this season and the new COVID booster 2 weeks before rituximab. Patient is not interested in getting any vaccines Plan I spent 26 minutes reviewing patient's chart, evaluating patient, ordering diagnostic workup, counseling patient and documenting in the chart Orders: Orders Complete Blood Count Auto Diff Today M05.9 - Rheumatoid arthritis with rheumatoid factor, unspecified Comprehensive Met. Panel Today M05.9 - Rheumatoid arthritis with rheumatoid factor, unspecified C Reactive Protein Today M05.9 - Rheumatoid arthritis with rheumatoid factor, unspecified Hepatitis A,B,C Profile Today Z11.59 - Encounter for screening for other viral diseases Immunofixation Pnl, Serum Today M05.9 - Rheumatoid arthritis with rheumatoid factor, unspecified T Spot TB Today Z11.7 - Encounter for testing for latent tuberculosis infection Rheumatoid Factor Today M05.9 - Rheumatoid arthritis with rheumatoid factor, unspecified Cyclic Citrullinated Peptide Today M05.9 - Rheumatoid arthritis with rheumatoid factor, unspecified Complete Blood Count Auto Diff 10 Weeks M05.9 - Rheumatoid arthritis with rheumatoid factor, unspecified Rheumatoid Factor 10 Weeks M05.9 - Rheumatoid arthritis with rheumatoid factor, unspecified Cyclic Citrullinated Peptide 10 Weeks M05.9 - Rheumatoid arthritis with rheumatoid factor, unspecified Erythrocyte Sedimentation Rate Today M05.9 - Rheumatoid arthritis with rheumatoid factor, unspecified Protein Electrophoresis, Serum Today M05.9 - Rheumatoid arthritis with rheumatoid factor, unspecified Comprehensive Met. Panel 10 Weeks M05.9 - Rheumatoid arthritis with rheumatoid factor, unspecified C Reactive Protein 10 Weeks M05.9 - Rheumatoid arthritis with rheumatoid factor, unspecified AMB Joint Injection/Aspiration Today M05.9 - Rheumatoid arthritis with rheumatoid factor, unspecified Coding Level of Care Code Est Pt Level 4 (49207) Diagnoses Seropositive rheumatoid arthritis M05.9 Psoriasis L40.9 Immunization counseling Z71.85 CPT Codes Coding - 33218 Medium joint: 84111 - Medium joint ([id number])
== END 2023-06-27 14:13 | disposition home or self-care (01) ==
PROVIDERS: PCP Nurse Practitioner Family; Visit Provider Student in an Organized Health Care Education/Training Program
DX: M05.79 Rheumatoid arthritis with rheumatoid factor of multiple sites without organ or systems involvement (principal); L40.9 Psoriasis, unspecified; Z71.85 Encounter for immunization safety counseling
CPT/HCPCS: 20605; 99214

== ENCOUNTER → 2023-06-27 13:39 | Outpatient (BNVA) | payer OTHER, SELFPAY | PROVIDERS: PCP Nurse Practitioner Family; Visit Provider Student in an Organized Health Care Education/Training Program | DX: M05.9 Rheumatoid arthritis with rheumatoid factor, unspecified (principal); M25.532 Pain in left wrist; L40.9 Psoriasis, unspecified; Z71.85 Encounter for immunization safety counseling | CPT/HCPCS: 20605; J3301 ==

== ENCOUNTER 2023-06-29 09:00 | Outpatient (REF) | payer OTHER, SELFPAY ==
[2023-06-29 09:15] LABS: MANUAL DIFF FLAG NO
[2023-06-29 10:01] LABS: Basophils Absolute Auto 0.1 X10*3/uL (0.0-0.2); Basophils Percent Auto 0.8 % (0-2); Eosinophils Absolute Auto 0.4 X10*3/uL (0.0-0.4); Eosinophils Percent Auto 4.4 % (0-4); Hematocrit 44.9 % (42.0-52.0); Hemoglobin 15.5 g/dl (14.0-18.0); Imm Gran Abs Auto 0.04 X10*3/uL (0.00-0.03); Imm Gran Pct Auto 0.4 % (0.0-0.4); Lymphocytes Absolute Auto 1.6 X10*3/uL (1.2-4.9); Lymphocytes Percent Auto 16.3 % (20-40); Mean Corpuscular HGB Conc 34.5 g/dl (31.0-36.0); Mean Platelet Volume 11.2 fL (9.4-12.4); Monocytes Absolute Auto 0.9 X10*3/uL (0.1-1.2); Monocytes Percent Auto 9.5 % (2-11); Neutrophils Absolute Auto 6.7 x10*3/uL (2.0-8.3); Neutrophils Percent Auto 68.6 % (45-73); Platelet Count 228 X10*3/uL (160-400); Red Blood Count 5.16 X10*6/uL (4.60-5.80); Red Cell Distribution Width 12.9 % (11.0-16.0); White Blood Count 9.7 X10*3/uL (4.8-10.8)
[2023-06-29 10:40] LABS: Rheumatoid Factor 87.1 IU/mL (<15.0)
[2023-06-29 10:44] LABS: Alanine Aminotransferase 63 U/L (0-40); Albumin Level 4.4 g/dL (3.5-5.0); Alkaline Phosphatase 51 U/L (39-117); Anion Gap 13 (12-20); Aspartate Amino Transferase 31 U/L (5-37); Bilirubin Total 0.5 mg/dL (0.0-1.0); Blood Urea Nitrogen 16 mg/dL (9-16); C Reactive Protein 0.62 mg/dL (< or = 0.50); Calcium 9.6 mg/dL (8.4-10.2); Carbon Dioxide 23 mmol/L (22-29); Chloride 107 mmol/L (96-108); Estimated Glomerular Filt Rate > 60; Glucose Random 92 mg/dL (60-115); Potassium 3.8 mmol/L (3.3-5.1); Sodium 139 mmol/L (135-145); Total Protein 7.5 g/dL (6.5-8.0)
[2023-06-29 10:57] LABS: Erythrocyte Sedimentation Rate 12 MM/HR (0-15); HBS Num1 14.56 mIU/mL (0-7.99); HBc Num1 0.04 S/CO (0.00-0.79); HBsAGNum1 0.32 S/CO (0.00-0.99); Hepatitis B Core Antibody Nonreactive (Nonreactive); Hepatitis B Surface Antigen Negative (Negative); ~HepC Num1 0.04 S/CO (0.00-0.79); ~Hepatitis A Antibody IgM Nonreactive (Nonreactive); ~Hepatitis B Surface Antibody REACTIVE (Nonreactive); ~Hepatitis C Antibody Nonreactive (Nonreactive)
[2023-07-01 22:34] LABS: TS Negative Control Passed; TS Panel A 0; TS Panel B 0; TS Positive Control Passed; TSpotTB Negative (Negative)
[2023-07-02 12:08] LABS: Cyclic Citrullinated Peptide >250 UNITS
[2023-07-04 13:29] LABS: IgA 393 mg/dL (47-310); IgG 1040 mg/dL (600-1640); IgM 60 mg/dL (50-300)
[2023-07-05 08:43] LABS: Prot Elec - Albumin 4.2 g/dL (3.8-4.8); Prot Elec - Alpha1 0.3 g/dL (0.2-0.3); Prot Elec - Alpha2 0.7 g/dL (0.5-0.9); Prot Elec - Beta 1 0.5 g/dL (0.4-0.6); Prot Elec - Beta 2 0.5 g/dL (0.2-0.5); Prot Elec - Gamma 0.9 g/dL (0.8-1.7)
== END 2023-06-29 09:01 | disposition home or self-care (01) ==
LOC: HO.LAB 09:00
PROVIDERS: Visit Provider Student in an Organized Health Care Education/Training Program
DX: Z11.7 Encounter for testing for latent tuberculosis infection (principal); Z11.59 Encounter for screening for other viral diseases; M05.9 Rheumatoid arthritis with rheumatoid factor, unspecified; Z72.89 Other problems related to lifestyle
CPT/HCPCS: 36415; 80053; 82784; 84165; 85025; 85652; 86140; 86200; 86334; 86431; 86481; 86704; 86706; 86709; 86803; 87340

== ENCOUNTER 2023-09-01 08:27 | Outpatient (REF) | payer OTHER, SELFPAY ==
[2023-09-01 08:48] LABS: MANUAL DIFF FLAG NO
[2023-09-01 08:55] LABS: Basophils Absolute Auto 0.1 X10*3/uL (0.0-0.2); Basophils Percent Auto 0.8 % (0-2); Eosinophils Absolute Auto 0.3 X10*3/uL (0.0-0.4); Eosinophils Percent Auto 3.3 % (0-4); Hematocrit 44.1 % (42.0-52.0); Hemoglobin 15.7 g/dl (14.0-18.0); Imm Gran Abs Auto 0.03 X10*3/uL (0.00-0.03); Imm Gran Pct Auto 0.4 % (0.0-0.4); Lymphocytes Percent Auto 13.1 % (20-40); Mean Corpuscular HGB Conc 35.6 g/dl (31.0-36.0); Mean Corpuscular Hemoglobin 30.3 pg (27.0-33.0); Mean Corpuscular Volume 85.1 fL (80.0-98.0); Mean Platelet Volume 10.6 fL (9.4-12.4); Monocytes Percent Auto 12.6 % (2-11); Neutrophils Absolute Auto 5.3 x10*3/uL (2.0-8.3); Neutrophils Percent Auto 69.8 % (45-73); Platelet Count 189 X10*3/uL (160-400); Red Blood Count 5.18 X10*6/uL (4.60-5.80); Red Cell Distribution Width 13.7 % (11.0-16.0); White Blood Count 7.6 X10*3/uL (4.8-10.8)
[2023-09-01 09:16] LABS: Rheumatoid Factor 55.1 IU/mL (<15.0)
[2023-09-01 09:20] LABS: Alanine Aminotransferase 95 U/L (0-40); Albumin Level 4.3 g/dL (3.5-5.0); Alkaline Phosphatase 46 U/L (39-117); Anion Gap 10 (12-20); Aspartate Amino Transferase 44 U/L (5-37); Bilirubin Total 0.8 mg/dL (0.0-1.0); Blood Urea Nitrogen 16 mg/dL (9-16); C Reactive Protein 0.87 mg/dL (< or = 0.50); Calcium 9.5 mg/dL (8.4-10.2); Carbon Dioxide 26 mmol/L (22-29); Chloride 108 mmol/L (96-108); Estimated Glomerular Filt Rate > 60; Glucose Random 97 mg/dL (60-115); Potassium 3.9 mmol/L (3.3-5.1); Sodium 140 mmol/L (135-145); Total Protein 7.2 g/dL (6.5-8.0)
[2023-09-05 15:37] LABS: Cyclic Citrullinated Peptide >250 UNITS
== END 2023-09-01 08:28 | disposition home or self-care (01) ==
LOC: HO.LAB 08:27
PROVIDERS: Visit Provider Student in an Organized Health Care Education/Training Program
DX: M05.9 Rheumatoid arthritis with rheumatoid factor, unspecified (principal)
CPT/HCPCS: 36415; 80053; 85025; 86140; 86200; 86431

== ENCOUNTER 2023-09-07 15:38 | Outpatient (AMB) | payer OTHER, SELFPAY ==
[2023-09-07 15:41] VITALS: BP 118/72; PULSE 88; TEMP 36.3; O2SAT 97; BMI 42.6
--- NOTE | 2023-09-07 15:41 | MHC.OFFVIS ---
Intake Vital Signs 09/07/23 15:41 Height 5 ft 7 in Weight 272 lb 4.334 oz BMI 42.6 BP 118/72 Blood Pressure Location Rt brachial Position Sitting Pulse 88 Pulse Source Pulse Oximeter Temp 97.4 F Temp Source Skin Pulse Oximetry (%) 97 Intake Visit Reasons: RA Intake Note: Pt last seen 06/27/23 presents today for follow up and test results. Completed 2 infusions of rituxin, states he has weird side effect of feeling hungry after he eats. 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 He completed rituximab infusion treatment 08/01. The infusion was uneventful. He states that he is a little better overall. Before the infusion he would have joint pain and stiffness every day and he would take ibuprofen 800 mg every day. Currently he has 3 bad days every week, has used ibuprofen about twice since it infusion in July. Believes that the left wrist cortisone injection was helpful. He has been doing light therapy for his psoriasis with some improvement. Initial history: This is a 42-year-old male with seropositive RA and psoriasis who presents for follow-up. Patient split the Cimzia dose to 200 mg every other week, he ran out of Cimzia 3-4 weeks ago. States that Medrol taper provides relief initially then he starts to flare with itchy rashes as soon as it starts getting tapered. He is complaining of bilateral wrist pain worse on the left as well as right ankle pain and swelling. He was recently evaluated by Dermatology and had a skin biopsy. He has a follow-up visit with them 2 days from today. States that they are planning to start him on [facility] Medical History Obesity Sleep apnea HTN (hypertension) CAD (coronary artery disease) Ischemic cardiomyopathy Seropositive rheumatoid arthritis Surgical History S/P skin biopsy Status post cardiac surgery Family History Father CVD (cardiovascular disease) Mother No problems noted. Maternal Grandfather CVD (cardiovascular disease) Social History Alcohol intake: current Alcohol intake frequency: a few times a month Alcohol type: beer and hard liquor Patient Tobacco Use Status: Never used Tobacco e-Cigarette/Vaping Use: Never Used Review of Systems Musc Reports arthralgias and Reports stiffness Skin/Breast Reports rash Physical Exam Vital Signs: Last Vital Signs Temp 97.4 F 09/07/23 15:41 Pulse 88 09/07/23 15:41 BP 118/72 09/07/23 15:41 Pulse Ox 97 09/07/23 15:41 BMI result Body Mass Index 42.6 Const General: cooperative, healthy appearing and comfortable Nutritional Appearance: obese morbidly obese Orientation/consciousness: patient oriented x3 Limitations: no limitations HEENT Head: Yes normocephalic and Yes atraumatic Mouth: moist mucous membranes Resp Effort & Inspection: normal respiratory effort and able to speak in complete sentences Auscultation: clear to auscultation bilaterally Skin Other: Psoriasis patches on right ear, extensor aspect of both elbows Few nodular lesions on left elbow Neuro General: patient oriented x3 Extrem Other: Left wrist tenderness to palpation and pain with flexion and extension Left 2nd MCP swelling without significant tenderness. Left 1st MCP swelling and tenderness Right 3rd MCP swelling and tenderness No wrist tenderness or pain with flexion and extension No ankle swelling tenderness or warmth bilaterally Negative MTP squeeze test bilaterally Normal range of motion of elbows and shoulders without pain Nail pitting of right ring finger Patient global: 4 Physician global: 3 Tender joints: 3 Swollen joints 3 Results Reviewed Results Reviewed: CLINICAL INFORMATION: Rheumatoid arthritis. COMPARISON: Radiographs 11/19/2018. TECHNIQUE: 4 views of each hand/wrist. 3 views of each ankle. 3 views of each foot. FINDINGS: Right hand/wrist: No joint space narrowing. No periarticular osteopenia, erosion, or suspicious soft tissue calcification. No acute abnormality. Left hand/wrist: There is narrowing and there are marginal erosions of the 1st and 2nd MCP joints that are new since 11/19/2018. These are of uncertain chronicity. There is dorsal soft tissue swelling of the 2nd metacarpophalangeal joint suggesting there may be an active inflammatory component. Carpal joint spaces are preserved. Right ankle/foot: The ankle mortise is preserved. Medial ankle soft tissue swelling. No definite ankle joint effusion. No periarticular osteopenia, erosions, or suspicious soft tissue calcifications. Left ankle/foot: The ankle mortise is preserved. No periarticular osteopenia, erosions, or suspicious soft tissue calcifications. No acute abnormality. XR/XR hand wrist RT IMPRESSION: 1. There are marginal erosions and joint space narrowing of the 1st and 2nd metacarpophalangeal joints of the left hand that are new since 11/19/2018. These are of uncertain chronicity. There is dorsal soft tissue swelling of the 2nd metacarpophalangeal joint suggesting there may be an active inflammatory component. 2. No additional abnormalities of either hand/wrist or either ankle/foot. No suspicious soft tissue calcifications. Assessment & Plan Assessment & Plan (1) Seropositive rheumatoid arthritis: Comment: ++RF+++CCP Methotrexate- November 2018-May 2020-elevated liver function Enbrel- February 2019-May 2020-(worked best according to patient but discontinued due to worsening psoriasis) Humira- January 2021- October 2021- increased psoriasis Orencia- November 2021 to self stopped by patient September 2022 due to increased psoriasis Cimzia-10/2022-05/2023 ongoing arthritis & worsening rashes Rituximab 07/2023 effective Code(s): M05.9 - Rheumatoid arthritis with rheumatoid factor, unspecified Plan: This is a 42-year-old Seropositive erosive rheumatoid arthritis (RF++ CCP+++) and psoriasis who presents for follow up. Patient has tried and failed/could not tolerate multiple DMARDs that are used for RA and psoriatic arthritis. He cannot get methotrexate or leflunomide due to transaminitis.multiple TNF inhibitors such as Enbrel, Humira, Cimzia. Were discontinued due to worsening psoriasis. He believes that Enbrel worked best for his arthritis He also discontinued Orencia due to worsening psoriasis. MICHAEL inhibitors would be avoided due to his history of premature coronary atherosclerosis. I reviewed his repeat hand x-rays which are more consistent with erosive changes in rheumatoid arthritis rather than psoriatic arthritis. Patient received 1 dose of Skyrizi in the middle of June. I called patient's brush cutter VALER[facility] and the plan at this point is to stop skyrizi and start rituximab. patient completed rituximab induction 1 g x 2 doses 07/2023. He is doing much better overall with less swollen and tender joints. Labs before next visit in 3 months (2) Psoriasis: Code(s): L40.9 - Psoriasis, unspecified Plan: Improving with phototherapy. Continue to follow-up with derm Plan I spent 26 minutes reviewing patient's chart, evaluating patient, ordering diagnostic workup, counseling patient and documenting in the chart Orders: Orders Complete Blood Count Auto Diff 3 Months M05.9 - Rheumatoid arthritis with rheumatoid factor, unspecified Comprehensive Met. Panel 3 Months M05.9 - Rheumatoid arthritis with rheumatoid factor, unspecified Immunofixation Pnl, Serum 3 Months M05.9 - Rheumatoid arthritis with rheumatoid factor, unspecified Protein Electrophoresis, Serum 3 Months M05.9 - Rheumatoid arthritis with rheumatoid factor, unspecified C Reactive Protein 3 Months M05.9 - Rheumatoid arthritis with rheumatoid factor, unspecified Erythrocyte Sedimentation Rate 3 Months M05.9 - Rheumatoid arthritis with rheumatoid factor, unspecified Coding Level of Care Code Est Pt Level 4 (55124) Diagnoses Seropositive rheumatoid arthritis M05.9 Psoriasis L40.9
== END 2023-09-07 16:10 | disposition home or self-care (01) ==
PROVIDERS: PCP Nurse Practitioner Family; Visit Provider Student in an Organized Health Care Education/Training Program
DX: M05.79 Rheumatoid arthritis with rheumatoid factor of multiple sites without organ or systems involvement (principal); L40.9 Psoriasis, unspecified
CPT/HCPCS: 99214

== ENCOUNTER → 2023-09-07 15:38 | Outpatient (BNVA) | payer OTHER, SELFPAY | PROVIDERS: PCP Nurse Practitioner Family; Visit Provider Student in an Organized Health Care Education/Training Program ==

== ENCOUNTER 2023-10-09 14:38 | Outpatient (AMB) | payer OTHER, SELFPAY ==
[2023-10-09 14:42] VITALS: BP 120/74; PULSE 63; BMI 42.5
--- NOTE | 2023-10-09 14:42 | MHC.OFFVIS ---
Intake Vital Signs 10/09/23 14:42 Height 5 ft 7 in Weight 271 lb 2.697 oz BMI 42.5 BP 120/74 Blood Pressure Location Lt brachial Position Sitting Pulse 63 Intake Visit Reasons: overdue 1 year fu Intake Note: 1 year follow-up feeling good [employer] Required: No Allergies No Known Allergies Allergy (Verified 09/07/23 15:49) Medication List - Last Reconciled 10/09/23 by Adair Ruiz MD clobetasol 0.05% 1 appl topical BID clobetasol 0.05% grams topical BID PRN HPI HPI Comments History of Present Illness Details Brady comes for follow-up. He is currently having struggles with his autoimmune disease with rheumatoid arthritis as well as plaque psoriasis. As a result he is having significant joint issues. He is on current immunomodulators but has only partially helped him. Because of his joint pains he decided to come off statin therapy to see if that will help but this has not really lead to any improvement in his symptoms. He also has not been exercising as much due to lack of motivation and his medical issues. [facility], [facility] Medical History Obesity Sleep apnea HTN (hypertension) CAD (coronary artery disease) Ischemic cardiomyopathy Seropositive rheumatoid arthritis Surgical History S/P skin biopsy Status post cardiac surgery Family History Father CVD (cardiovascular disease) Mother No problems noted. Maternal Grandfather CVD (cardiovascular disease) Social History Alcohol intake: current Alcohol intake frequency: a few times a month Alcohol type: beer and hard liquor Patient Tobacco Use Status: Never used Tobacco e-Cigarette/Vaping Use: Never Used Review of Systems Const Denies chills, Denies daytime sleepiness, Denies fatigue, Denies fever(s), Denies frequent falls, Denies poor appetite, Denies snoring, Denies stops breathing during sleep, Denies weakness, Denies weight gain and Denies weight loss Eyes Denies loss of vision ENT Denies dizziness and Denies hearing loss Card Denies chest pain, Denies claudication, Denies leg edema, Denies lightheadedness, Denies palpitations, Denies dyspnea, Denies dyspnea on exertion and Denies orthopnea Resp Denies cough, Denies excessive phlegm production, Denies dyspnea, Denies dyspnea on exertion, Denies snoring and Denies wheezing GI Denies abdominal pain, Denies hematochezia, Denies change in bowel habits, Denies nausea and Denies vomiting Denies dysuria and Denies urinary frequency Musc Denies arthralgias, Denies muscle weakness, Denies numbness and Denies other (frequent falls) Skin/Breast Denies nail changes and Denies rash Neuro Denies Abnormal speech present, Denies dizziness, Denies frequent falls, Denies loss of vision, Denies memory loss, Denies numbness and Denies weakness Psych Denies depression and Denies memory loss Endo Denies fatigue and Denies palpitations David/Lymph Reports easy bruising and Reports other (anemia) Aller/Immun Denies wheezing Physical Exam Vital Signs: Last Vital Signs Pulse 63 10/09/23 14:42 BP 120/74 10/09/23 14:42 BMI result Body Mass Index 42.5 Const General: cooperative, comfortable, no acute distress, alert and awake Nutritional Appearance: obese Orientation/consciousness: patient oriented x3 Limitations: no limitations Neck Neck: Yes trachea midline, Yes supple and Yes no JVD Carotids: no bruits Resp Effort & Inspection: normal respiratory effort Auscultation: clear to auscultation bilaterally Cardio Jugular venous distension: no JVD Palpation: normal PMI Rate: regular rate Rhythm: regular rhythm Heart sounds: S1 normal heart sound present and S2 normal heart sound present Skin General skin exam: other (Diffuse psoriatic lesions noted) Neuro General: patient oriented x3 and no focal motor deficits Speech: No Abnormal speech present Extrem General: Yes no clubbing, cyanosis or edema Psych Appearance: grossly normal Office Procedures EKG Details: EKG shows normal sinus rhythm with inferior infarct [id number], Complete Assessment & Plan Assessment & Plan (1) CAD (coronary artery disease): Code(s): I25.10 - Atherosclerotic heart disease of [place] coronary artery without angina pectoris Plan: Premature CAD with inferior ACS with PDA PTCA many years ago. Since then he has had no recurrent symptoms. He is currently off all therapy to treat his coronary artery disease. He also has underlying connective tissue disease that makes him more risk for vascular inflammation and vascular events. This was discussed with him. Importance of medical therapy was discussed. Advised him to restart aspirin therapy. Before starting lipid modification therapy which was very well optimized on high-intensity statin and ezetimibe therapy he wants to pursue lipid panel. I am okay with that. He has not sure whether he needs therapy for lipid modifying agents. I discussed that is almost likely that he requires that for secondary prevention. We discussed with him about pathophysiology of atherosclerosis. His blood pressure is well optimized at this point time would suggest that he does not require antihypertensive therapy. Advised to monitor blood pressure at home maintain a log. Goal blood pressure less than 130/84. Continue to participate in aggressive weight loss program and also participate in regular exercise program, although he is limitations related to his rheumatoid arthritis. Will follow up in the clinic in 1 year's time, sooner p.r.n.. Thank you for allowing me to partake in his care Coding Level of Care Code Est Pt Level 4 (79092) Diagnoses CAD (coronary artery disease) I25.10 CPT Codes EKG - CPT: 22835-[id number], Complete ([id number])
== END 2023-10-09 15:24 | disposition home or self-care (01) ==
PROVIDERS: PCP Nurse Practitioner Family; Visit Provider Internal Medicine Cardiovascular Disease
DX: I25.10 Atherosclerotic heart disease of native coronary artery without angina pectoris (principal)
CPT/HCPCS: 93010; 99214

== ENCOUNTER → 2023-10-09 14:38 | Outpatient (BNVA) | payer OTHER, SELFPAY | PROVIDERS: PCP Nurse Practitioner Family; Visit Provider Internal Medicine Cardiovascular Disease | DX: I25.10 Atherosclerotic heart disease of native coronary artery without angina pectoris (principal) | CPT/HCPCS: 93005 ==

== ENCOUNTER 2024-02-12 07:12 | Outpatient (REF) | payer OTHER, SELFPAY ==
[2024-02-12 07:32] LABS: MANUAL DIFF FLAG NO
[2024-02-12 07:50] LABS: Basophils Absolute Auto 0.1 X10*3/uL (0.0-0.2); Basophils Percent Auto 0.9 % (0-2); Eosinophils Absolute Auto 0.2 X10*3/uL (0.0-0.4); Eosinophils Percent Auto 3.6 % (0-4); Hematocrit 44.5 % (42.0-52.0); Hemoglobin 15.7 g/dl (14.0-18.0); Imm Gran Abs Auto 0.03 X10*3/uL (0.00-0.03); Imm Gran Pct Auto 0.5 % (0.0-0.4); Lymphocytes Absolute Auto 0.9 X10*3/uL (1.2-4.9); Lymphocytes Percent Auto 15.4 % (20-40); Mean Corpuscular HGB Conc 35.3 g/dl (31.0-36.0); Mean Corpuscular Hemoglobin 31.4 pg (27.0-33.0); Mean Platelet Volume 11.1 fL (9.4-12.4); Monocytes Absolute Auto 0.8 X10*3/uL (0.1-1.2); Monocytes Percent Auto 13.9 % (2-11); Neutrophils Absolute Auto 3.8 x10*3/uL (2.0-8.3); Neutrophils Percent Auto 65.7 % (45-73); Platelet Count 177 X10*3/uL (160-400); Red Cell Distribution Width 13.7 % (11.0-16.0); White Blood Count 5.8 X10*3/uL (4.8-10.8)
[2024-02-12 08:23] LABS: Alanine Aminotransferase 107 U/L (0-40); Albumin Level 4.2 g/dL (3.5-5.0); Alkaline Phosphatase 48 U/L (39-117); Anion Gap 15 (12-20); Aspartate Amino Transferase 48 U/L (5-37); Bilirubin Total 0.7 mg/dL (0.0-1.0); Blood Urea Nitrogen 11 mg/dL (9-16); C Reactive Protein 0.29 mg/dL (< or = 0.50); Calcium 9.5 mg/dL (8.4-10.2); Carbon Dioxide 27 mmol/L (22-29); Chloride 105 mmol/L (96-108); Estimated Glomerular Filt Rate > 60; Glucose Random 97 mg/dL (60-115); Potassium 4.1 mmol/L (3.3-5.1); Sodium 143 mmol/L (135-145); Total Protein 6.8 g/dL (6.5-8.0)
[2024-02-12 08:31] LABS: Erythrocyte Sedimentation Rate 3 MM/HR (0-15)
[2024-02-15 12:33] LABS: IgA 320 mg/dL (47-310); IgG 848 mg/dL (600-1640); IgM 44 mg/dL (50-300)
[2024-02-15 17:13] LABS: Prot Elec - Albumin 4.2 g/dL (3.8-4.8); Prot Elec - Alpha1 0.2 g/dL (0.2-0.3); Prot Elec - Alpha2 0.5 g/dL (0.5-0.9); Prot Elec - Beta 1 0.4 g/dL (0.4-0.6); Prot Elec - Beta 2 0.4 g/dL (0.2-0.5); Prot Elec - Gamma 0.8 g/dL (0.8-1.7); Prot Elec - Total Protein 6.5 g/dL (6.1-8.1)
== END 2024-02-12 07:13 | disposition home or self-care (01) ==
LOC: HO.LAB 07:12
PROVIDERS: PCP Nurse Practitioner Family; Visit Provider Student in an Organized Health Care Education/Training Program
DX: M05.9 Rheumatoid arthritis with rheumatoid factor, unspecified (principal)
CPT/HCPCS: 36415; 80053; 82784; 84165; 85025; 85652; 86140; 86334

== ENCOUNTER 2024-02-14 07:39 | Outpatient (AMB) | payer OTHER, SELFPAY ==
--- NOTE | 2024-02-14 07:38 | A.OFFVIS_ITS ---
Vital Signs 02/14/24 07:48 Height 5 ft 7 in Weight 261 lb 7.492 oz BMI 40.9 BP 130/78 Blood Pressure Location Rt brachial Position Sitting Pulse 57 Pulse Source Pulse Oximeter Pulse Oximetry (%) 98 Oxygen Delivery Method Room Air Intake Visit Reasons: RA Intake Note: Patient, last seen 09/07/23, reports today for RA follow up. States he has had no meds since last infusion due to ins issues Risk Adjustment Specialist Required: No Allergies No Known Allergies Allergy (Verified 02/14/24 07:50) Medication List - Last Reconciled 02/14/24 by Demario Edwards MD clobetasol 0.05% grams topical BID PRN HPI Comments Details: 43year-old male with seropositive erosive RA and psoriasis returns for follow- up. Patient states that he recently switched jobs and he got new insurance. Some of his appointments needed to be postponed. He states that he has been having more joint pains recently. States that he has been more active since he started his new job. Been walking more and doing different activities. Has been having some more right ankle pain. Pain in his left wrist and left index and thumb. His last light therapy for psoriasis was 11/2023. States that light therapy was quite helpful. His psoriasis has been a little worse recently, he has having patches on his left elbow, back of his neck, underneath his right nipple and inside of his thighs. Patient states that he has felt the best on Enbrel. It helped his joints significantly but his psoriasis did not improve. Initial history: This is a 42-year-old male with seropositive RA and psoriasis who presents for follow-up. Patient split the Cimzia dose to 200 mg every other week, he ran out of Cimzia 3-4 weeks ago. States that Medrol taper provides relief initially then he starts to flare with itchy rashes as soon as it starts getting tapered. He is complaining of bilateral wrist pain worse on the left as well as right ankle pain and swelling. He was recently evaluated by Dermatology and had a skin biopsy. He has a follow-up visit with them 2 days from today. States that [facility] are [facility] Medical History Obesity Sleep apnea HTN (hypertension) CAD (coronary artery disease) Ischemic cardiomyopathy Seropositive rheumatoid arthritis Surgical History S/P skin biopsy Status post cardiac surgery Family History Father CVD (cardiovascular disease) Mother No problems noted. Maternal Grandfather CVD (cardiovascular disease) Social History Alcohol intake: current Alcohol intake frequency: a few times a month Alcohol type: beer and hard liquor Patient Tobacco Use Status: Never used Tobacco e-Cigarette/Vaping Use: Never Used Review of Systems Musc Reports arthralgias and Reports stiffness Skin/Breast Reports rash Physical Exam Vital Signs: Last Vital Signs Pulse 57 02/14/24 07:48 BP 130/78 02/14/24 07:48 Pulse Ox 98 02/14/24 07:48 Oxygen Delivery Method Room Air 02/14/24 07:48 BMI result Body Mass Index 40.9 Const General: cooperative, healthy appearing and comfortable Nutritional Appearance: obese morbidly obese Orientation/consciousness: patient oriented x3 Limitations: no limitations HEENT Head: Yes normocephalic and Yes atraumatic Mouth: moist mucous membranes Resp Effort & Inspection: normal respiratory effort and able to speak in complete sentences Skin Other: Psoriasis patches on right ear, extensor aspect of left elbow Neuro General: patient oriented x3 Extrem Other: Left wrist pain with flexion and extension Left 2nd MCP swelling tenderness Left 5th MCP tenderness Left 1st MCP swelling and tenderness Right 3rd MCP synovial thickening without tenderness Right ankle tenderness without swelling Negative MTP squeeze test bilaterally Normal range of motion of elbows and shoulders without pain Nail pitting of right ring finger Results Reviewed Results Reviewed: CLINICAL INFORMATION: Rheumatoid arthritis. COMPARISON: Radiographs 11/19/2018. TECHNIQUE: 4 views of each hand/wrist. 3 views of each ankle. 3 views of each foot. FINDINGS: Right hand/wrist: No joint space narrowing. No periarticular osteopenia, erosion, or suspicious soft tissue calcification. No acute abnormality. Left hand/wrist: There is narrowing and there are marginal erosions of the 1st and 2nd MCP joints that are new since 11/19/2018. These are of uncertain chronicity. There is dorsal soft tissue swelling of the 2nd metacarpophalangeal joint suggesting there may be an active inflammatory component. Carpal joint spaces are preserved. Right ankle/foot: The ankle mortise is preserved. Medial ankle soft tissue swelling. No definite ankle joint effusion. No periarticular osteopenia, erosions, or suspicious soft tissue calcifications. Left ankle/foot: The ankle mortise is preserved. No periarticular osteopenia, erosions, or suspicious soft tissue calcifications. No acute abnormality. XR/XR hand wrist RT IMPRESSION: 1. There are marginal erosions and joint space narrowing of the 1st and 2nd metacarpophalangeal joints of the left hand that are new since 11/19/2018. These are of uncertain chronicity. There is dorsal soft tissue swelling of the 2nd metacarpophalangeal joint suggesting there may be an active inflammatory component. 2. No additional abnormalities of either hand/wrist or either ankle/foot. No suspicious soft tissue calcifications. Assessment & Plan Assessment & Plan (1) Seropositive rheumatoid arthritis: Comment: ++RF+++CCP Methotrexate- November 2018-May 2020-elevated liver function Enbrel- February 2019-May 2020-(worked best according to patient but discontinued due to worsening psoriasis) Humira- January 2021- October 2021- increased psoriasis Orencia- November 2021 to self stopped by patient September 2022 due to increased psoriasis Cimzia-10/2022-05/2023 ongoing arthritis & worsening rashes Rituximab 07/2023 effective (feeling hungry after eating) Code(s): M05.9 - Rheumatoid arthritis with rheumatoid factor, unspecified Category: Medical Plan: This is a 43-year-old Seropositive erosive rheumatoid arthritis (RF++ CCP+++) and psoriasis who presents for follow up. Patient's last rituximab infusion was about 6 months ago. He is starting to have more joint pains. We will need to restart DMARDs. Patient recently switched jobs and will not be able to do rituximab infusions as he is unable to have any days off. Patient stated that the best DMARD that worked for his rheumatoid arthritis was Enbrel but stated that his psoriasis did not get better while on Enbrel. He would like to try Enbrel again. I think this is very reasonable. Will start prior authorization for Enbrel. Advised patient to start light therapy as soon as he can. He stated that he is planning to start it in March before next visit in 3 months (2) Psoriasis: Code(s): L40.9 - Psoriasis, unspecified Category: Medical Plan: Planning to restart phototherapy. Plan I spent 26 minutes reviewing patient's chart, evaluating patient, ordering d iagnostic workup, counseling patient and documenting in the chart Orders: Orders C Reactive Protein 3 Months M05.9 - Rheumatoid arthritis with rheumatoid factor, unspecified Complete Blood Count Auto Diff 3 Months M05.9 - Rheumatoid arthritis with rheumatoid factor, unspecified Comprehensive Met. Panel 3 Months M05.9 - Rheumatoid arthritis with rheumatoid factor, unspecified Erythrocyte Sedimentation Rate 3 Months M05.9 - Rheumatoid arthritis with rheumatoid factor, unspecified Coding Level of Care Code Est Pt Level 4 (38356) Diagnoses Seropositive rheumatoid arthritis M05.9 Psoriasis L40.9
[2024-02-14 07:48] VITALS: BP 130/78; PULSE 57; O2SAT 98; BMI 40.9
== END 2024-02-14 08:10 | disposition home or self-care (01) ==
PROVIDERS: PCP Nurse Practitioner Family; Visit Provider Student in an Organized Health Care Education/Training Program
DX: M05.79 Rheumatoid arthritis with rheumatoid factor of multiple sites without organ or systems involvement (principal); L40.9 Psoriasis, unspecified
CPT/HCPCS: 99214

== ENCOUNTER → 2024-02-14 07:39 | Outpatient (BNVA) | payer OTHER, SELFPAY | PROVIDERS: PCP Nurse Practitioner Family; Visit Provider Student in an Organized Health Care Education/Training Program ==

== ENCOUNTER 2024-05-30 10:49 | Outpatient (REF) | payer OTHER, SELFPAY ==
[2024-05-30 11:20] LABS: MANUAL DIFF FLAG NO
[2024-05-30 12:25] LABS: Basophils Absolute Auto 0.1 X10*3/uL (0.0-0.2); Basophils Percent Auto 0.8 % (0-2); Eosinophils Absolute Auto 0.2 X10*3/uL (0.0-0.4); Eosinophils Percent Auto 2.3 % (0-4); Hematocrit 44.9 % (42.0-52.0); Hemoglobin 15.8 g/dl (14.0-18.0); Imm Gran Abs Auto 0.02 X10*3/uL (0.00-0.03); Imm Gran Pct Auto 0.3 % (0.0-0.4); Lymphocytes Absolute Auto 1.1 X10*3/uL (1.2-4.9); Lymphocytes Percent Auto 14.3 % (20-40); Mean Corpuscular HGB Conc 35.2 g/dl (31.0-36.0); Mean Corpuscular Hemoglobin 31.6 pg (27.0-33.0); Mean Corpuscular Volume 89.8 fL (80.0-98.0); Mean Platelet Volume 11.6 fL (9.4-12.4); Monocytes Absolute Auto 0.8 X10*3/uL (0.1-1.2); Monocytes Percent Auto 10.9 % (2-11); Neutrophils Absolute Auto 5.4 x10*3/uL (2.0-8.3); Neutrophils Percent Auto 71.4 % (45-73); Platelet Count 207 X10*3/uL (160-400); Red Cell Distribution Width 13.7 % (11.0-16.0); White Blood Count 7.5 X10*3/uL (4.8-10.8)
[2024-05-30 12:55] LABS: Alanine Aminotransferase 51 U/L (0-40); Albumin Level 4.5 g/dL (3.5-5.0); Alkaline Phosphatase 56 U/L (39-117); Anion Gap 11 (12-20); Aspartate Amino Transferase 32 U/L (5-37); Bilirubin Total 0.9 mg/dL (0.0-1.0); Blood Urea Nitrogen 15 mg/dL (9-16); C Reactive Protein 0.14 mg/dL (< or = 0.50); Calcium 10.1 mg/dL (8.4-10.2); Carbon Dioxide 27 mmol/L (22-29); Chloride 107 mmol/L (96-108); Estimated Glomerular Filt Rate > 60; Glucose Random 90 mg/dL (60-115); Potassium 4.1 mmol/L (3.3-5.1); Sodium 141 mmol/L (135-145); Total Protein 7.1 g/dL (6.5-8.0)
[2024-05-30 13:03] LABS: Erythrocyte Sedimentation Rate 3 MM/HR (0-15)
== END 2024-05-30 10:50 | disposition home or self-care (01) ==
LOC: HO.LAB 10:49
PROVIDERS: Visit Provider Student in an Organized Health Care Education/Training Program
DX: M05.9 Rheumatoid arthritis with rheumatoid factor, unspecified (principal)
CPT/HCPCS: 36415; 80053; 85025; 85652; 86140

== ENCOUNTER 2024-06-04 07:21 | Outpatient (AMB) | payer OTHER, SELFPAY ==
--- NOTE | 2024-06-04 07:41 | MHC.OFFVIS ---
Vital Signs 06/04/24 07:45 Height 5 ft 7 in Weight 244 lb 0.827 oz BMI 38.2 BP 124/80 Blood Pressure Location Lt brachial Position Sitting Pulse 52 Pulse Source Pulse Oximeter Pulse Oximetry (%) 97 Oxygen Delivery Method Room Air Intake Visit Reasons: RA Intake Note: Patient presents for RA. Allergies No Known Allergies Allergy (Verified 06/04/24 07:44) Medication List - Last Reconciled 06/04/24 by Demario Edwards MD clobetasol 0.05% grams topical BID PRN Enbrel SureClick (etanercept) 50 mg subcut QWEEK NS HPI Comments Details: 43year-old male with seropositive erosive RA and psoriasis returns for follow-up. He is on Enbrel weekly. States that he is doing well overall. Started doing light therapy for psoriasis 2 months ago. His psoriasis is doing reasonably well. Has not had any swollen or painful joints. States that Enbrel works very well for him. He has been exercising, walking, lifting weights and has lost at least 15 lb since last visit. He injured his right calf about 3 weeks ago jumping off a boat. His right calf has been swollen. He has been icing it. He re-injured his right calf this weekend when swimming in the ocean, he was caught in a [place] and had to swim hard. Denies any recent illnesses. No recent surgeries. No recent immobilization. Initial history: This is a 42-year-old male with seropositive RA and psoriasis who presents for follow-up. Patient split the Cimzia dose to 200 mg every other week, he ran out of Cimzia 3-4 weeks ago. States that Medrol taper provides relief initially then he starts to flare with itchy rashes as soon as it starts getting tapered. He is complaining of bilateral wrist pain worse on the left as well as right ankle pain and swelling. He was recently evaluated by Dermatology and had a skin biopsy. He has a follow-up visit with them 2 days from today. States that they are planning to start him on Stelara [facility] Medical History Obesity Sleep apnea HTN (hypertension) CAD (coronary artery disease) Ischemic cardiomyopathy Seropositive rheumatoid arthritis Surgical History S/P skin biopsy Status post cardiac surgery Family History Father CVD (cardiovascular disease) Mother No problems noted. Maternal Grandfather CVD (cardiovascular disease) Social History Alcohol intake: current Alcohol intake frequency: a few times a month Alcohol type: beer and hard liquor Patient Tobacco Use Status: Never used Tobacco e-Cigarette/Vaping Use: Never Used Review of Systems Musc Reports arthralgias and Reports stiffness Skin/Breast Reports rash Physical Exam Vital Signs: Last Vital Signs Pulse 52 06/04/24 07:45 BP 124/80 06/04/24 07:45 Pulse Ox 97 06/04/24 07:45 Oxygen Delivery Method Room Air 06/04/24 07:45 BMI result Body Mass Index 38.2 Const General: cooperative, healthy appearing and comfortable Nutritional Appearance: obese morbidly obese Orientation/consciousness: patient oriented x3 Limitations: no limitations HEENT Head: Yes normocephalic and Yes atraumatic Mouth: moist mucous membranes Resp Effort & Inspection: normal respiratory effort and able to speak in complete sentences Skin Other: Skin rash on flexor aspect of left elbow Neuro General: patient oriented x3 Extrem Other: No wrist pain with flexion-extension bilaterally Left 2nd MCP synovial thickening but no tenderness Left 1st MCP synovial thickening but no tenderness There is no active synovitis today Swelling of right calf, no tenderness, trace pitting edema right leg Results Reviewed Results Reviewed: CLINICAL INFORMATION: Rheumatoid arthritis. COMPARISON: Radiographs 11/19/2018. TECHNIQUE: 4 views of each hand/wrist. 3 views of each ankle. 3 views of each foot. FINDINGS: Right hand/wrist: No joint space narrowing. No periarticular osteopenia, erosion, or suspicious soft tissue calcification. No acute abnormality. Left hand/wrist: There is narrowing and there are marginal erosions of the 1st and 2nd MCP joints that are new since 11/19/2018. These are of uncertain chronicity. There is dorsal soft tissue swelling of the 2nd metacarpophalangeal joint suggesting there may be an active inflammatory component. Carpal joint spaces are preserved. Right ankle/foot: The ankle mortise is preserved. Medial ankle soft tissue swelling. No definite ankle joint effusion. No periarticular osteopenia, erosions, or suspicious soft tissue calcifications. Left ankle/foot: The ankle mortise is preserved. No periarticular osteopenia, erosions, or suspicious soft tissue calcifications. No acute abnormality. XR/XR hand wrist RT IMPRESSION: 1. There are marginal erosions and joint space narrowing of the 1st and 2nd metacarpophalangeal joints of the left hand that are new since 11/19/2018. These are of uncertain chronicity. There is dorsal soft tissue swelling of the 2nd metacarpophalangeal joint suggesting there may be an active inflammatory component. 2. No additional abnormalities of either hand/wrist or either ankle/foot. No suspicious soft tissue calcifications. Assessment & Plan Assessment & Plan (1) Seropositive rheumatoid arthritis: Comment: ++RF+++CCP Methotrexate- November 2018-May 2020-elevated liver function Enbrel- February 2019-May 2020-(worked best according to patient but discontinued due to worsening psoriasis) Humira- January 2021- October 2021- increased psoriasis Orencia- November 2021 to self stopped by patient September 2022 due to increased psoriasis Cimzia-10/2022-05/2023 ongoing arthritis & worsening rashes Rituximab 07/2023 effective (feeling hungry after eating) Enbrel 02/2024 effective (for RA) Code(s): M05.9 - Rheumatoid arthritis with rheumatoid factor, unspecified Category: Medical Plan: This is a 43-year-old Seropositive erosive rheumatoid arthritis (RF++ CCP+++) and psoriasis who presents for follow up. On Enbrel 50 mg once weekly. Doing very well overall with no active synovitis. Continue Enbrel 50 mg once weekly Labs before next visit in 6 months (2) Psoriasis: Code(s): L40.9 - Psoriasis, unspecified Category: Medical Plan: Doing phototherapy. Using clobetasol creams. Psoriasis is reasonably well controlled (3) Transaminitis: Code(s): R74.01 - Elevation of levels of liver transaminase levels Category: Medical Plan: Improving with weight loss. This is likely due to fatty liver. Continue exercising (4) Calf swelling: Code(s): M79.89 - Other specified soft tissue disorders Category: Medical Plan: After jumping off a boat, no recent surgery, immobilization or illnesses. Likely a calf muscle injury. Discussed with patient that he should be evaluated by Orthopedics. Patient however is not interested at this time. Advised patient to follow-up with orthopedics within 2 weeks if there is no significant improvement Plan I spent 36 minutes reviewing patient's chart, evaluating patient, ordering diagnostic workup, counseling patient and documenting in the chart Orders: Orders C Reactive Protein 6 Months M05.9 - Rheumatoid arthritis with rheumatoid factor, unspecified Hepatitis A,B,C Profile 6 Months Z11.59 - Encounter for screening for other viral diseases Complete Blood Count Auto Diff 6 Months M05.9 - Rheumatoid arthritis with rheumatoid factor, unspecified Comprehensive Met. Panel 6 Months M05.9 - Rheumatoid arthritis with rheumatoid factor, unspecified T Spot TB 6 Months Z11.7 - Encounter for testing for latent tuberculosis infection Coding Level of Care Code Est Pt Level 5 (41763) Diagnoses Seropositive rheumatoid arthritis M05.9 Psoriasis L40.9 Transaminitis R74.01 Calf swelling M79.89
[2024-06-04 07:45] VITALS: BP 124/80; PULSE 52; O2SAT 97; BMI 38.2
== END 2024-06-04 08:02 | disposition home or self-care (01) ==
PROVIDERS: PCP Nurse Practitioner Family; Visit Provider Student in an Organized Health Care Education/Training Program
DX: M05.79 Rheumatoid arthritis with rheumatoid factor of multiple sites without organ or systems involvement (principal); L40.9 Psoriasis, unspecified; R74.01 Elevation of levels of liver transaminase levels; M79.89 Other specified soft tissue disorders
CPT/HCPCS: 99214

== ENCOUNTER → 2024-06-04 07:21 | Outpatient (BNVA) | payer OTHER, SELFPAY | PROVIDERS: PCP Nurse Practitioner Family; Visit Provider Student in an Organized Health Care Education/Training Program ==

== ENCOUNTER → 2024-10-10 15:06 | Outpatient (BNVA) | payer OTHER, SELFPAY | PROVIDERS: PCP Nurse Practitioner Family; Visit Provider Internal Medicine Cardiovascular Disease | DX: I25.10 Atherosclerotic heart disease of native coronary artery without angina pectoris (principal); E78.5 Hyperlipidemia, unspecified | CPT/HCPCS: 93005 ==

== ENCOUNTER 2024-10-17 15:22 | Outpatient (AMB) | payer OTHER, SELFPAY ==
[2024-10-17 15:23] VITALS: BP 122/78; PULSE 60; O2SAT 98; BMI 35.6
--- NOTE | 2024-10-17 15:23 | A.OFFVIS_ITS ---
Vital Signs 10/17/24 15:23 Height 5 ft 7 in Weight 227 lb 1.218 oz BMI 35.6 BP 122/78 Blood Pressure Location Rt brachial Position Sitting Pulse 60 Pulse Oximetry (%) 98 Oxygen Delivery Method Room Air Intake Visit Reasons: MAXX / CPAP Allergies No Known Allergies Allergy (Verified 10/17/24 15:30) HPI HPI MAXX / CPAP: Details: 44-year-old gentleman with underlying history of rheumatoid arthritis previously on methotrexate, followed for underlying mild obstructive sleep apnea well controlled on current CPAP therapy. [facility] Medical History Obesity Sleep apnea HTN (hypertension) CAD (coronary artery disease) Ischemic cardiomyopathy Seropositive rheumatoid arthritis Surgical History S/P skin biopsy Status post cardiac surgery Family History Father CVD (cardiovascular disease) Mother No problems noted. Maternal Grandfather CVD (cardiovascular disease) Social History Alcohol intake: current Alcohol intake frequency: a few times a month Alcohol type: beer and hard liquor Patient Tobacco Use Status: Never used Tobacco e-Cigarette/Vaping Use: Never Used Review of Systems Const Denies daytime sleepiness, Denies excessive sweating, Denies fatigue, Denies fever(s), Denies lethargy, Denies malaise, Denies night sweats, Denies snoring and Denies weight loss Eyes Denies blurry vision and Denies itchy eyes ENT Denies nasal congestion, Denies post nasal drip, Denies sinus pain, Denies sinus pressure and Denies other ( Thrush) Card Denies chest pain, Denies pedal edema, Denies dyspnea, Denies orthopnea and Denies paroxysmal nocturnal dyspnea Resp Denies cough, Denies hemoptysis, Denies excessive phlegm production, Denies dyspnea, Denies snoring and Denies wheezing GI Denies abdominal pain and Denies heartburn Musc Denies myalgias, Denies arthralgias and Denies joint swelling Skin/Breast Denies rash Neuro Denies memory loss and Denies seizure-like activity Psych Denies abnormal sleep pattern, Denies anxiety and Denies memory loss Endo Denies excessive sweating, Denies fatigue and Denies heat intolerance David/Lymph Denies easy bruising Aller/Immun Denies itchy eyes, Denies seasonal rhinorrhea and Denies wheezing Physical Exam Vital Signs: Last Vital Signs Pulse 60 10/17/24 15:23 BP 122/78 10/17/24 15:23 Pulse Ox 98 10/17/24 15:23 Oxygen Delivery Method Room Air 10/17/24 15:23 BMI result Body Mass Index 35.6 Const General: no acute distress and alert Nutritional Appearance: not obese Orientation/consciousness: Other orientation findings ( oriented) HEENT Head: Yes atraumatic Eyes General: appearance normal, both eyes and all related structures Sclerae: sclerae normal EOM: EOMs intact bilaterally Neck Neck: Yes supple Lymphatic: no lymphadenopathy noted Resp Effort & Inspection: normal respiratory effort and no use of accessory muscles Auscultation: clear to auscultation bilaterally Cardio Rate: regular rate Rhythm: regular rhythm Heart sounds: no gallops, no murmurs and no rubs Skin General skin exam: other ( warm) Extrem General: No clubbing, No cyanosis and No edema Assessment & Plan Assessment & Plan (1) Sleep apnea: Code(s): G47.30 - Sleep apnea, unspecified Category: Medical Plan: Therapy and compliance report reviewed - patient is benefitting from and is compliant with noninvasive positive pressure ventilation treatment, using it greater than 70% of the time, more than 4 hours per night. Continue CPAP t herapy. Coding Level of Care Code Est Pt Level 3 (27028) Diagnoses Sleep apnea G47.30
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
--- OUTSIDE RECORDS SUMMARY | 2024-10-17 15:27 | XMS_ITS | Encounter Summary ---
Author Name [facility] [place] Address [address] [place] [address] Care Team Providers Care Corporate Specialist Name Role Phone NEGRO CONN Primary Care Provider Unavailabl e Insurance Providers: [...] BENEFITS ADMIN HIGH DEDUCTIBL E HEALTH PLAN OGDEN Y HEALT H [facility] Sep 04, 2019 [id number] [phone] MARTHA SARKARH PATIENT OPTUM RX PRESCRIPT ION [facility] Dec 03, 2017 [id number] MELLO CHRISTIANO PATIENT UMR POINT OF SERVICE [facility] Dec 03, 2017 [id number] [phone] CHRISTIANO SARKAR PATIENT Selected Encounter This section includes the information on record at [place] for the Encounter. Date/Time Encounter Type Encounter Description Reason Pro vider Source Oct 10, 2024 12:00 PM Outpatient Encounter COMMUNITY CARE CONSULT IHE Encounter Template Text not used by [facility] Plan of Treatment: Future Appointments (+ 6 months) and Future Tests (+/- 45 days) The Plan of Treatment section includes future care activities for the patient from all [place] [facility]. This section includes future appointments and future orders which are active, pending or scheduled. Future Appointments This section includes appointments that were scheduled to occur 6 months from the date of the Encounter, up to a maximum of 20 appointments. The data comes from all [facility] facilities. Appointment Date/Time Appointment Type Appointme nt Facility Name Apr 01, 2025 03:30 PM AMBULATORY - MEDICINE [facility] Active, Pending, and Scheduled Orders This section includes a listing of several types of active, pending, and scheduled orders, including clinic medications orders, diagnostic test orders, procedure orders and consult orders; where the start date of the order is 45 days before the date of the Encounter or 45 days after the date of theEncounter. The data comes from all [facility]. Test Date/Time Test Type Test Details Facility Name Oct 01, 2024 12:00 AM Laboratory - Chemistry Order CBC AND DIFF (AUTO) BLOOD (LAV-BLOOD) [facility] Oct 01, 2024 12:00 AM Laboratory - Chemistry Order TSH BLOOD (SST-SERUM) [facility] Oct 01, 2024 12:00 AM Laboratory - Chemistry Order HEMOGLOBIN A1C PANEL BLOOD (LAV-BLOOD) [facility] Oct 01, 2024 12:00 AM Laboratory - Chemistry Order MICROALBUMIN CREATININE RATIO PANEL URINE (RANDOM) [facility] Oct 01, 2024 12:00 AM Laboratory - Chemistry Order SED RATE, AUTOMATED BLOOD (LAV-BLOOD) [facility] Oct 01, 2024 12:00 AM Laboratory - Chemistry Order URIC ACID BLOOD (SST-SERUM) [facility] Oct 01, 2024 12:00 AM Laboratory - Chemistry Order OCCULT BLOOD FIT X1 SCREEN(IN-HOUSE) STOOL FECES [facility] Oct 01, 2024 12:00 AM Laboratory - Chemistry Order BASIC METABOLIC PANEL (non-fasting) BLOOD (SST-SERUM) [facility] Oct 01, 2024 12:00 AM Laboratory - Chemistry Order SED RATE, AUTOMATED BLOOD (LAV-BLOOD) [facility] Oct 01, 2024 12:00 AM Laboratory - Chemistry Order ANTI-CCP BLOOD (GRN(PST)-LiHep-PLASMA) [facility] Oct 01, 2024 12:00 AM Laboratory - Chemistry Order LIVER FUNCTION BLOOD (SST-SERUM) [facility] Oct 01, 2024 12:00 AM Laboratory - Chemistry Order LIPID PANEL, NON FASTING BLOOD (SST-SERUM) [facility] Oct 01, 2024 12:00 AM Laboratory - Chemistry Order CALCIUM BLOOD (SST-SERUM) [facility] Oct 01, 2024 12:00 AM Laboratory - Chemistry Order VITAMIN D (25-OH) BLOOD (SST-SERUM) SP [facility] Encounter Notes: All associated encounter notes This section contains the clinical notes associated to the Encounter. Date/Time Encounter Note(s) Provider Source Oct 10, 2024 12:00 PM NONVA CONSULT: LOCAL TITLE: COMMUNITY CARE-CONSULT RESULT NOTE STANDARD TITLE: NONVA CONSULT DATE OF NOTE: OCT 10, 2024@12:00 ENTRY DATE: OCT 10, 2024@15:26:22 AUTHOR: ANJU GORE EXP COSIGNER: URGENCY: STATUS: COMPLETED VistA Imaging - Scanned Document SCANNED DOCUMENT SIGNATURE NOT REQUIRED Electronically Filed: 10/10/2024 by: ANJU GORE MEDICAL POWER SWITCHBOARD OPERATOR ANJU GORE [facility]
== END 2024-10-17 16:16 | disposition home or self-care (01) ==
LOC: HO.HPS 15:22
PROVIDERS: PCP Nurse Practitioner Family; Visit Provider Internal Medicine Pulmonary Disease
DX: G47.30 Sleep apnea, unspecified (principal)
CPT/HCPCS: 99213

== ENCOUNTER 2024-10-25 12:20 | Outpatient (REF) | payer OTHER, SELFPAY ==
[2024-10-25 13:00] LABS: MANUAL DIFF FLAG NO
--- OUTSIDE RECORDS SUMMARY | 2024-10-25 13:03 | XMS_ITS | Continuity of Care Document ---
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 It does not include entries that were removed or entered in error. Problem Status Onset Date Problem Type Date of Resolution Comments Source History of appendectomy Active 02/08/20 14 Condition Feb 18, 2014 Entered By: ANNAMARIA RAE Comment: Laproscopic procedure [facility] gingivitis Active Condition Also miki res crowns on front teeth. DoD fracture phalanges of foot Active Condition 11/05 Fx l eft great toe. DoD visit for: services physical separation Inactive Condition DoD hearing loss Active Condition [facility] desi th ears; Audiogram 04/08. DoD Co-management Active Condition Sep Entered By: CATRINA SOTOMAYOR Comment: Negro Yeboah NP seen every 6 months [facility] Edema Active Condition Aug 02 24 Entered By: NEGRO CONN Comment: US, R LE JUL 28; Neg DVT ot Thrombus Formation;Aug 02, 2024 Entered By: NEGRO CONN Comment: Indication for US of R LE: Abrupt Onset LLE After Jumped in Water [facility] Essential hypertension Active Condition Jul 12, 2024 Entered By: NEGRO CONN Comment: On No Meds as of JUL 28 (he stopped ACEI); SBP's usu.WNL [facility] Exposure to potentially hazardous substance Active Condition Jul 12, 2024 Entered By: NEGRO CONN Comment: [place] Early [facility] Fatty liver [facility]atitis * (ICD-9-CM 573.3) Active Condition [facility] E[facility] Mixed hyperlipidemia (SNOMED CT 093744047) Active Condition [facility] Obesity (SNOMED CT 278931311) Active Condition [facility] OBSTRUCTIVE SLEEP APNEA Active Condition [place] 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 Oct 10, 2024 Entered By: ARGENIS HU Comment: AMI 2011, had PTCA, no stent or [facility]G [facility] Psoriasis (SNOMED CT 8360964) Active Condition Jul 12, 2024 Entered By: NEGRO CONN Comment: Does Ultra-Mikki Light Tx via [place] Derm as of 2023 [facility] Rheumatoid arthritis Active Condition Sep 27, 2019 Entered By: CATRINA SOTOMAYOR Comment: on EnbrelNov 2023 Entered By: NEGRO CONN Comment: Still Sees Rheum at [facility] as of JUL 28 [facility] Screening for malignant neoplasm of colon done Active Condition Jul 12, 2024 Entered By: NEGRO CONN Comment: Never Had Colonoscopy; Prefers FIT as of JUL 28 [facility] Sleep apnea Active Condition Jul 12, 2024 Entered By: NEGRO CONN Comment: Has CPAP as of JUL 28; See Cargo And Container Inspector at [facility]. [facility] Diagnosis: ICD-10-CM M06.8A Other specified rheumatoid arthritis, other specified site Active Diagnosis [facility] Medications Combined list of outpatient medications [...] TABLET BY MOUTH ONCE DAILY ORAL ACTIVE SHANE SOTOMAYORLINCASS O 2019 [facility] BUMETANIDE 1MG TAB TAKE ONE TABLET BY MOUTH ONCE DAILY TO REMOVE FLUID/CO NTROL BLOOD PRESSURE ORAL ACTIVE 07/13/2025 [id number] MARICARMEN CONN 2023 30 [place] CLOBETASOL PROPIONATE 0.05% CREAM,TOP APPLY A TOPICALL Y TOPICA L ACTIVE СВЕТЛАНА, APOLINARI O 2019 [facility] CLOTRIMAZOL E 1% SOLN,TOP APPLY THIN LAYER TOPICALL Y TWICE DAILY FOR FUNGAL INFECTIO N. APPLY TO TOENAILS . RONAN Proctor ACTIVE 07/13/2025 [id number] MARICARMEN CONN 2023 30 [place] ETANERCEPT POWDER FOR RECONSTITUT ION INJ,PWDR INJECT ACTIVE СВЕТЛАНА, APOLINARI O 2019 [facility] FOLIC ACID TAB TAKE BY MOUTH ONCE DAILY ORAL ACTIVE СВЕТЛАНА, APOLINARI O 2019 [facility] LISINOPRIL 5MG TAB TAKE ONE TABLET BY MOUTH ONCE DAILY ORAL ACTIVE СВЕТЛАНА, APOLINARI O 2019 [facility] Immunizations Combined list of available immunizations from the Department of Defense and Veterans Affairs facilities. Immunization Series Date Given Administered By Site Reaction Lot Number CVX Code Drug Social Worker Palliative Care Status Comments Source INFLUENZA, SEASONAL, INJECTABLE 2018 141 complet ed [facility] DTAP, UNSPECIFIED FORMULATION 2010 107 complet ed Site: Right Deltoid [place] MENINGOCOCCAL ACWY, UNSPECIFIED FORMULATION [address] [facility] IELD Results Combined list of recent chemistry, hematology and other laboratory results from Department of Defense and Veterans Affairs, ranging from 15 months to all on record, depending upon the facility. Order Name Results Value Reference Range Date Interpretation Specimen Comments Source ANTI-CCP CYCLIC CITRULLINA NEDA PEPTIDE IGG AB [UNITS/VOL UME] IN SERUM OR PLASMA POSITIVE 10/24 Specimen Type: PLASMA Comment: Anti-cyclic citrullinat ed peptide (anti-CCP), IgG antibodies are present in about 69-83% of patients with Rheumatoid Arthritis (RA) and have specificiti es of 93-95%. These autoantibod ies may be present in the preclinical phase of disease, are associated with future RA development , and may predict radiographi c joint destruction . Ordering Provider: FREDDY HU Report Released Date/Time: Oct 01, 2024 03:59 PM Reporting Lab: [facility] [email or web address] LLCNEWY[facility] [address] [facility] [address] Performing Lab: [facility] [address] [address] [facility] BASIC METABOLI C PANEL (non-fas ting) UREA NITROGEN [MASS/VOLU ME] IN SERUM OR PLASMA 22 mg/dL 7 - 25 10/24 Specimen Type: SERUM No comment entered. Ordering Provider: FREDDY HU Report Released Date/Time: Oct 01, 2024 03:59 PM Reporting Lab: [facility] [address] [address] Performing Lab: [facility] [address] [address] [facility] BASIC METABOLI C PANEL (non-fas ting) GLUCOSE [MASS/VOLU ME] IN SERUM OR PLASMA 85 mg/dL 65 - 100 10/24 Specimen Type: SERUM No comment entered. Ordering Provider: FREDDY HU Report Released Date/Time: Oct 01, 2024 03:59 PM Reporting Lab: [address] [address] Performing Lab: [address] [address] [facility] BASIC METABOLI C PANEL (non-fas ting) SODIUM [MOLES/VOL UME] IN SERUM OR PLASMA 138 mmol/L 135 - 145 10/24 Specimen Type: SERUM No comment entered. Ordering Provider: FREDDY HU Report Released Date/Time: Oct 01, 2024 03:59 PM Reporting Lab: [facility] [address] [address] Performing Lab: [address] [address] [facility] BASIC METABOLI C PANEL (non-fas ting) POTASSIUM [MOLES/VOL UME] IN SERUM OR PLASMA 4.0 mmol/L 3.5 - 5.0 10/24 Specimen Type: SERUM No comment entered. Ordering Provider: FREDDY HU Report Released Date/Time: Oct 01, 2024 03:59 PM Reporting Lab: [facility] [place] [address] [address] Performing Lab: [facility] [place] [facility] [address] [facility] [address] [facility] BASIC METABOLI C PANEL (non-fas ting) CHLORIDE [MOLES/VOL UME] IN SERUM OR PLASMA 104 mmol/L 100 - 110 10/24 Specimen Type: SERUM No comment entered. Ordering Provider: FREDDY HU Report Released Date/Time: Oct 01, 2024 03:59 PM Reporting Lab: [facility] [address] Performing Lab: [facility] [address] [facility] TRN [facility] BASIC METABOLI C PANEL (non-fas ting) CARBON DIOXIDE, TOTAL [MOLES/VOL UME] IN SERUM OR PLASMA 26 meq/L 20 - 30 10/24 Specimen Type: SERUM No comment entered. Ordering Provider: FREDDY HU Report Released Date/Time: Oct 01, 2024 03:59 PM Reporting Lab: [facility] [address] Performing Lab: [facility] [address] [facility] TRN [facility] BASIC METABOLI C PANEL (non-fas ting) CALCIUM [MASS/VOLU ME] IN SERUM OR PLASMA 9.1 mg/dL 8.5 - 10.2 10/24 Specimen Type: SERUM No comment entered. Ordering Provider: FREDDY HU Report Released Date/Time: Oct 01, 2024 03:59 PM Reporting Lab: [facility] [place] [address] [address] Performing Lab: [facility] [address] [facility] BASIC METABOLI C PANEL (non-fas ting) CREATININE [MASS/VOLU ME] IN SERUM OR PLASMA 0.83 mg/dL 0.50 - 1.40 10/24 Specimen Type: SERUM No comment entered. Ordering Provider: FREDDY HU Report Released Date/Time: Oct 01, 2024 03:59 PM Reporting Lab: [facility] [address] [facility] [address] Performing Lab: [facility] [address] [facility] [address] [facility] [place] [facility] BASIC METABOLI C PANEL (non-fas ting) GLOMERULAR FILTRATION RATE/1.73 SQ M.PREDICTE D [VOLUME RATE/AREA] IN SERUM, PLASMA OR BLOOD BY CREATININE -BASED FORMULA (CKD-EPI 2020) >90mL/mi n 60 10/24 Specimen Type: SERUM No comment entered. Ordering Provider: FREDDY HU Report Released Date/Time: Oct 01, 2024 03:59 PM Reporting Lab: [facility] [address] [facility] [address] Performing Lab: [place] [facility] [address] [facility] [address] [facility] CALCIUM CALCIUM [MASS/VOLU ME] IN SERUM OR PLASMA 9.1 mg/dL 8.5 - 10.2 10/24 Specimen Type: SERUM No comment entered. Ordering Provider: FREDDY HU Report Released Date/Time: Oct 01, 2024 03:59 PM Reporting Lab: [facility] [address] [facility] [address] Performing Lab: [facility] [address] [address] [facility] CBC AND DIFF (AUTO) LEUKOCYTES [#/VOLUME] IN BLOOD BY AUTOMATED COUNT 5.39 10*3/uL 4.50 - 11.00 10/24 Specimen Type: BLOOD No comment entered. Ordering Provider: FREDDY HU Report Released Date/Time: Oct 01, 2024 03:59 PM Reporting Lab: [facility] [place] [facility] [address] [facility] [address] Performing Lab: [facility] [place] [facility] [address] [facility] [address] [facility] [place] [facility] CBC AND DIFF (AUTO) ERYTHROCYT ES [#/VOLUME] IN BLOOD BY AUTOMATED COUNT 5.25 10*6/uL 4.23 - 5.66 10/24 Specimen Type: BLOOD No comment entered. Ordering Provider: FREDDY HU Report Released Date/Time: Oct 01, 2024 03:59 PM Reporting Lab: [facility] [place] [facility] [address] [facility] [address] Performing Lab: [facility] [place] [address] [address] [facility] [place] [facility] CBC AND DIFF (AUTO) HEMOGLOBIN [MASS/VOLU ME] IN BLOOD 15.9 g/dL 12.8 - 17 10/24 Specimen Type: BLOOD No comment entered. Ordering Provider: FREDDY HU Report Released Date/Time: Oct 01, 2024 03:59 PM Reporting Lab: [facility] [place] [address] [address] Performing Lab: [facility] [place] [address] [address] [facility] [place] [facility] CBC AND DIFF (AUTO) HEMATOCRIT [VOLUME FRACTION] OF BLOOD BY AUTOMATED COUNT 45.6 39.2 - 50.4 10/24 Specimen Type: BLOOD No comment entered. Ordering Provider: FREDDY HU Report Released Date/Time: Oct 01, 2024 03:59 PM Reporting Lab: [facility] [place] [address] [address] Performing Lab: [facility] [place] [address] [address] [facility] [place] [facility] CBC AND DIFF (AUTO) MCV [ENTITIC VOLUME] BY AUTOMATED COUNT 86.9 fL 82 - 99 10/24 Specimen Type: BLOOD No comment entered. Ordering Provider: FREDDY HU Report Released Date/Time: Oct 01, 2024 03:59 PM Reporting Lab: [facility] [place] [facility] [address] [facility] [address] Performing Lab: [facility] [place] [facility] [address] [facility] [address] [facility] CBC AND DIFF (AUTO) MCHC [MASS/VOLU ME] BY AUTOMATED COUNT 34.9 g/dL 30.8 - 35.1 10/24 Specimen Type: BLOOD No comment entered. Ordering Provider: FREDDY HU Report Released Date/Time: Oct 01, 2024 03:59 PM Reporting Lab: [facility] [place] [facility] [address] [facility] [address] Performing Lab: [facility] [place] [facility] [address] [facility] [address] [facility] [place] [facility] CBC AND DIFF (AUTO) PLATELETS [#/VOLUME] IN BLOOD BY AUTOMATED COUNT 201 10*3/uL 140 - 360 10/24 Specimen Type: BLOOD No comment entered. Ordering Provider: FREDDY HU Report Released Date/Time: Oct 01, 2024 03:59 PM Reporting Lab: [facility] [place] [facility] [address] [facility] [address] Performing Lab: [facility] [place] [facility] [address] [facility] [address] [facility] [place] [facility] CBC AND DIFF (AUTO) ERYTHROCYT E DISTRIBUTI ON WIDTH [RATIO] BY AUTOMATED COUNT 13.2 12.0 - 16.0 10/24 Specimen Type: BLOOD No comment entered. Ordering Provider: FREDDY HU Report Released Date/Time: Oct 01, 2024 03:59 PM Reporting Lab: [facility] [place] [facility] [address] [facility] [address] Performing Lab: [facility] [place] [facility] [address] [facility] [address] [facility] [place] [facility] CBC AND DIFF (AUTO) MONOCYTES [#/VOLUME] IN BLOOD BY AUTOMATED COUNT 0.73 10*3/uL 0.30 - 1.10 10/24 Specimen Type: BLOOD No comment entered. Ordering Provider: FREDDY HU Report Released Date/Time: Oct 01, 2024 03:59 PM Reporting Lab: [facility] [place] [address] [address] Performing Lab: [facility] [place] [address] [address] [facility] [place] [facility] CBC AND DIFF (AUTO) MCH [ENTITIC MASS] BY AUTOMATED COUNT 30.3 pg 26.2 - 32.6 10/24 Specimen Type: BLOOD No comment entered. Ordering Provider: FREDDY HU Report Released Date/Time: Oct 01, 2024 03:59 PM Reporting Lab: [facility] [place] [address] [address] Performing Lab: [facility] [place] [address] [address] [facility] [place] [facility] CBC AND DIFF (AUTO) NEUTROPHIL S/100 LEUKOCYTES IN BLOOD BY AUTOMATED COUNT 59.9 43.7 - 75.8 10/24 Specimen Type: BLOOD No comment entered. Ordering Provider: FREDDY HU Report Released Date/Time: Oct 01, 2024 03:59 PM Reporting Lab: [facility] [place] [address] [address] Performing Lab: [facility] [place] [address] [address] [facility] [place] [facility] CBC AND DIFF (AUTO) LYMPHOCYTE S/100 LEUKOCYTES IN BLOOD BY AUTOMATED COUNT 19.7 14.0 - 42.3 10/24 Specimen Type: BLOOD No comment entered. Ordering Provider: FREDDY HU Report Released Date/Time: Oct 01, 2024 03:59 PM Reporting Lab: [facility] [place] [address] [address] Performing Lab: [facility] [place] [address] [address] [facility] [place] [facility] CBC AND DIFF (AUTO) MONOCYTES/ 100 LEUKOCYTES IN BLOOD BY AUTOMATED COUNT 13.5 5.1 - 13.7 10/24 Specimen Type: BLOOD No comment entered. Ordering Provider: FREDDY HU Report Released Date/Time: Oct 01, 2024 03:59 PM Reporting Lab: [facility] [place] [address] [address] Performing Lab: [facility] [place] [address] [address] [facility] [place] [facility] CBC AND DIFF (AUTO) EOSINOPHIL S/100 LEUKOCYTES IN BLOOD BY AUTOMATED COUNT 5.6 0.4 - 6.8 10/24 Specimen Type: BLOOD No comment entered. Ordering Provider: FREDDY HU Report Released Date/Time: Oct 01, 2024 03:59 PM Reporting Lab: [facility] [place] [address] [address] Performing Lab: [facility] [place] [address] [address] [facility] [place] [facility] CBC AND DIFF (AUTO) BASOPHILS/ 100 LEUKOCYTES IN BLOOD BY AUTOMATED COUNT 1.1 0.1 - 2.0 10/24 Specimen Type: BLOOD No comment entered. Ordering Provider: FREDDY HU Report Released Date/Time: Oct 01, 2024 03:59 PM Reporting Lab: [facility] [place] [address] [address] Performing Lab: [facility] [place] [address] [address] [facility] CBC AND DIFF (AUTO) NEUTROPHIL S [#/VOLUME] IN BLOOD BY AUTOMATED COUNT 3.23 10*3/uL 2.20 - 7.60 10/24 Specimen Type: BLOOD No comment entered. Ordering Provider: FREDDY HU Report Released Date/Time: Oct 01, 2024 03:59 PM Reporting Lab: [facility] [place] [address] [place] [address] Performing Lab: [facility] [place] [facility] [address] [facility] [address] [facility] [place] [facility] CBC AND DIFF (AUTO) LYMPHOCYTE S [#/VOLUME] IN BLOOD BY AUTOMATED COUNT 1.06 10*3/uL 1.00 - 3.20 10/24 Specimen Type: BLOOD No comment entered. Ordering Provider: FREDDY HU Report Released Date/Time: Oct 01, 2024 03:59 PM Reporting Lab: [facility] [place] [facility] [address] [facility] [address] Performing Lab: [facility] [place] [facility] [address] [facility] [address] [facility] [place] [facility] CBC AND DIFF (AUTO) EOSINOPHIL S [#/VOLUME] IN BLOOD BY AUTOMATED COUNT 0.30 10*3/uL 0.03 - 0.44 10/24 Specimen Type: BLOOD No comment entered. Ordering Provider: FREDDY HU Report Released Date/Time: Oct 01, 2024 03:59 PM Reporting Lab: [facility] [place] [address] [address] Performing Lab: [facility] [place] [address] [address] [facility] [place] [facility] CBC AND DIFF (AUTO) BASOPHILS [#/VOLUME] IN BLOOD BY AUTOMATED COUNT 0.06 10*3/uL 0.01 - 0.13 10/24 Specimen Type: BLOOD No comment entered. Ordering Provider: FREDDY HU Report Released Date/Time: Oct 01, 2024 03:59 PM Reporting Lab: [facility] [place] [address] [address] Performing Lab: [facility] [place] [address] [address] [facility] [place] [facility] CBC AND DIFF (AUTO) IMMATURE GRANULOCYT ES/100 LEUKOCYTES IN BLOOD BY AUTOMATED COUNT 0.2 0.0 - 0.7 10/24 Specimen Type: BLOOD No comment entered. Ordering Provider: FREDDY HU Report Released Date/Time: Oct 01, 2024 03:59 PM Reporting Lab: [facility] [address] [address] Performing Lab: [facility] [address] [address] [facility] CBC AND DIFF (AUTO) IMMATURE GRANULOCYT ES [#/VOLUME] IN BLOOD 0.01 10*3/uL 0.00 - 0.06 10/24 Specimen Type: BLOOD No comment entered. Ordering Provider: FREDDY HU Report Released Date/Time: Oct 01, 2024 03:59 PM Reporting Lab: [facility] [address] Performing Lab: [facility] [address] [facility] CBC AND DIFF (AUTO) NRBC % 0.0 0.0 - 0.0 10/24 Specimen Type: BLOOD No comment entered. Ordering Provider: FREDDY HU Report Released Date/Time: Oct 01, 2024 03:59 PM Reporting Lab: [facility] [address] [address] Performing Lab: [facility] [address] [facility] CBC AND DIFF (AUTO) NRBC, ABS 0.00 10*3/uL 0.00 - 0.00 10/24 Specimen Type: BLOOD No comment entered. Ordering Provider: FREDDY HU Report Released Date/Time: Oct 01, 2024 03:59 PM Reporting Lab: [facility] [address] [address] Performing Lab: [place] [facility] [address] [facility] HEMOGLOB IN A1C PANEL HEMOGLOBIN A1C/HEMOGL OBIN.TOTAL IN BLOOD BY HPLC 4.5 4.0 - 5.6 10/24 Specimen Type: BLOOD Comment: Values obtained from A1C measurement s can vary. For atypical A1C assays, a reported value of 7.0 could actually be between 6.72 and 7.28 if measured by a reference method. A reported value of 9.0 could actually be between 8.73 and 9.27. Ref: http://www. ngsp.org/[place] Pdata.asp Ordering Provider: FREDDY HU Report Released Date/Time: Oct 01, 2024 03:59 PM Reporting Lab: [facility] [address] [facility] [address] Performing Lab: [address] [address] [facility] LIPID PANEL, NON FASTING CHOLESTERO L [MASS/VOLU ME] IN SERUM OR PLASMA 220 mg/dL 10/24 H Specimen Type: SERUM No comment entered. Ordering Provider: FREDDY HU Report Released Date/Time: Oct 01, 2024 03:59 PM Reporting Lab: [facility] [address] [facility] [address] Performing Lab: [facility] [address] [facility] [address] [facility] LIPID PANEL, NON FASTING TRIGLYCERI DE [MASS/VOLU ME] IN SERUM OR PLASMA 86 mg/dL 0 - 150 10/24 Specimen Type: SERUM No comment entered. Ordering Provider: FREDDY HU Report Released Date/Time: Oct 01, 2024 03:59 PM Reporting Lab: [facility] [address] [facility] [address] Performing Lab: [address] [address] [facility] LIPID PANEL, NON FASTING CHOLESTERO L IN LDL [MASS/VOLU ME] IN SERUM OR PLASMA BY CALCULAMARY N 167 mg/dL 0 - 129 10/24 H Specimen Type: SERUM No comment entered. Ordering Provider: FREDDY HU Report Released Date/Time: Oct 01, 2024 03:59 PM Reporting Lab: [facility] [place] [facility] [address] [facility] [address] Performing Lab: [facility] [place] [facility] [address] [facility] [address] [facility] [place] [facility] LIPID PANEL, NON FASTING CHOLESTERO L.TOTAL/CH OLESTEROL IN HDL [MASS RATIO] IN SERUM OR PLASMA 6.1 10/24 Specimen Type: SERUM No comment entered. Ordering Provider: FREDDY HU Report Released Date/Time: Oct 01, 2024 03:59 PM Reporting Lab: [facility] [place] [facility] [address] [facility] [address] Performing Lab[facility] [place] [address] [address] [facility] [place] [facility] LIPID PANEL, NON FASTING CHOLESTERO L IN HDL [MASS/VOLU ME] IN SERUM OR PLASMA 36 mg/dL 40 - 60 10/24 L Specimen Type: SERUM No comment entered. Ordering Provider: FREDDY HU Report Released Date/Time: Oct 01, 2024 03:59 PM Reporting Lab: [facility] [place] [facility] [address] [facility] [address] Performing Lab: [facility] [place] [address] [address] [facility] [place] [facility] MICROALB UMIN CREATINI NE RATIO PANEL MICROALBUM IN/CREATIN INE [MASS RATIO] IN URINE 9.2 mg/g 0 - 29.9 10/24 Specimen Type: URINE No comment entered. Ordering Provider: FREDDY HU Report Released Date/Time: Oct 01, 2024 03:59 PM Reporting Lab: [facility] [place] [facility] [address] [facility] [address] Performing Lab: [facility] [place] [facility] [address] [facility] [address] [facility] [place] [facility] MICROALB UMIN CREATINI NE RATIO PANEL MICROALBUM IN [MASS/VOLU ME] IN URINE 2.1 mg/dL 10/24 Specimen Type: URINE No comment entered. Ordering Provider: FREDDY HU Report Released Date/Time: Oct 01, 2024 03:59 PM Reporting Lab: [facility] [place] [address] [address] Performing Lab: [facility] [place] [address] [address] [facility] [place] [facility] MICROALB UMIN CREATINI NE RATIO PANEL CREATININE [MASS/VOLU ME] IN URINE 229.31 mg/dL 10/24 Specimen Type: URINE No comment entered. Ordering Provider: FREDDY HU Report Released Date/Time: Oct 01, 2024 03:59 PM Reporting [facility] [place] [address] [address] Performing Lab: [facility] [address] [address] [facility] [place] [facility] SED RATE, AUTOMATE D ERYTHROCYT E SEDIMENTAT ION RATE BY WESTERGREN METHOD 8 mm/h 0 - 15 10/24 Specimen Type: BLOOD No comment entered. Ordering Provider: FREDDY HU Report Released Date/Time: Oct 01, 2024 03:59 PM Reporting Lab: [facility] [place] [address] [address] Performing Lab: [facility] [place] [address] [address] [facility] [place] [facility] TSH THYROTROPI N [UNITS/VOL UME] IN SERUM OR PLASMA 2.13 u[IU]/mL 0.35 - 5.00 10/24 Specimen Type: SERUM No comment entered. Ordering Provider: FREDDY HU Report Released Date/Time: Oct 01, 2024 03:59 PM Reporting Lab: [facility] [place] [address] [address] Performing Lab: [facility] [place] [facility] [address] [facility] [address] [facility] URIC ACID URATE [MASS/VOLU ME] IN SERUM OR PLASMA 5.1 mg/dL 3.5 - 7.2 10/24 Specimen Type: SERUM No comment entered. Ordering Provider: FREDDY HU Report Released Date/Time: Oct 01, 2024 03:59 PM Reporting Lab: [facility] [place] [facility] [address] [facility] [address] Performing Lab: [facility] [place] [facility] [address] [facility] [address] [facility] [place] [facility] Vital Signs Combined list of inpatient and [...] [facility] [place] [facility] RESPIRATION 20 10/01/2024 15:44:06 [facility] [place] SYSTOLIC BLOOD PRESSURE 145 07/12/20 24 09:09:37 [facility] DIASTOLIC BLOOD PRESSURE 86 024 09:09:37 [facility] PULSE OXIMETRY 96 07/12/2024 09:09:37 [facility] WEIGHT 233 07/12/2024 09:09:37 [facility] BMI 36 kg/m2 07/12/2024 09:09:37 [facility] TEMPERATURE 97 07/12/2024 09:09:37 [facility] PULSE 78 07/12/2024 09:09:37 [facility] RESPIRATION 18 07/12/2024 09:09:37 [facility] Encounters Combined list of: 1) Encounters from Department of [facility] facilities going backup to the last 18 months, not all [place] inpatient encounters are included; 2) Encounters from the Department of [facility] facilities going backup to 280 months. Location Location Details Encounter Type Encounter Number Reason For Visit Attending Provider ADM Date DC Date Status Disposition Source [facility] Fax [phone]) OUTPATIENT [id number] est JD Lowery 09/30 Released w/o Limitations Emanuel [place]ner [place] Fax [phone]) [place] F[place] [phone]) OUTPAT[place] [id number] [place] for [place]. MIKAYLA BRUSH 10/07 Released w/o Limitations Emanuel Joyner [place] Fax [phone]) [facility] [place] [facility] Outpatient Encounter [id number] 07/16 [facility] [place] [facility] [place] [facility] Outpatient Encounter [id number] 07/01 [facility] En[facility] [id number] 1.07/04 [facility] [id number] 1.07/12 [facility] [place] Encounter [id number] 07/12 [facility] [place] [facility] OFFICE O/P EST MOD 30 MIN [id number] Diagnos is: ICD-10- CM M06.8A Other specifi ed rheumat oid arthrit is, other specifi ed site WAYNE CONN Olimpia [facility] En[facility] [id number] 08/27 [facility] Encounter [id number] [facility] Encounter [id number] 09/06 [facility] Encounter [id number] 09/13 [facility] [place] [facility] Encounter [id number] [facility] [place] [facility] Encounter [id number] 09/18 [facility] [place] [facility] OFFICE O/P EST MOD 30 MIN [id number] Diagnos is: ICD-10- CM M06.8A Other specifi ed rheumat oid arthrit is, other specifi ed site CORBY HU 10/01 [facility] Out[facility] Encounter [id number] 10/10 [facility] [place] [facility] Procedures Combined list of: 1) Procedures from Department of Veterans Affairs facilities going back up to thelast 18 months, not all VA non-surgical procedures are included; 2) All procedures from the Department of Defense facilities. 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 OVER &ABOVE THOSE USUALLY INCLD W THE OFFICE VISIT/OTH SER RENDERED (LIST DRUG,TRAYS,SUPP,OR MATERIAL PROVID) 04/03/2004 [facility] ELECTROCARDIOGRAM, ROUTINE ECG WITH AT LEAST 12 LEADS; WITH INTERPRETATION AND REPORT 08/05/2003 [facility] PURE TONE AUDIOMETRY (THRESHOLD); AIR ONLY 08/05/2003 [facility] OPHTHALMOLOGICAL SERVICES: MEDICAL EXAMINATION AND EVALUATION, WITH INITIATION OR CONTINUATION OF DIAGNOSTIC AND TREATMENT PROGRAM; INTERMEDIATE, ESTABLISHED PATIENT 08/05/2003 [facility] INFLUENZA VIRUS VACCINE, WHOLE VIRUS, FOR INTRAMUSCULAR OR JET INJECTION USE 08/04/2003 [facility] PSYCHIATRIC DIAGNOSTIC INTERVIEW EXAMINATION 05/02/2003 [facility] SKIN TEST; TUBERCULOSIS, INTRADERMAL 04/17/2003 [facility] REPAIR, COMPLEX, FOREHEAD, CHEEKS, CHIN, MOUTH, NECK, AXILLAE, GENITALIA, HANDS AND/OR FEET; 2.6 CM TO 7.5 CM 12/30/2000 [facility] 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 Social History Type Response Date Comment Sour e Tobacco smoking status [place] FORMER USER 07/12/2024 [facility] History of tobacco use [place]-TOBACCO QUIT 5 TO < 15 YRS 07/12/2024 [facility] History of tobacco use [place]ACCO FORMER USER 06/28/2018 [facility] History of tobacco use QUIT TOBACCO USE 1-7 YEARS AGO 11/25/2016 quit 5 yrs ago [facility] History of tobacco use QUIT TOBACCO USE 1-7 YEARS AGO 02/18/2015 [facility] History of tobacco use QUIT TOBACCO USE 1-7 YEARS AGO 11/01/2012 [facility] History of tobacco use V1-PT DECLINES TOBACCO CESSATION MEDS 08/05/2011 [facility] History of tobacco use CURRENT SMOKER 02/14/2011 .0Patient reports smoking seven to eight cigeretts on a daily bases. [facility] History of tobacco use V1-PT DECLINES TOBACCO CESSATION MEDS 09/07/2009 [facility] History of tobacco use V1-PT DECLINES TOBACCO CESSATION MEDS 02/18/2009 [facility] History of tobacco use CURRENT SMOKER 10/08/2008 advise to stop [facility] This section is an empty social history section. [facility] Plan of Care List of future care activities from Department of Veterans Affairs facilities. Additional future care activities may be listed in the Assessment and Plan section. Date/Time Care Activity Care Activity Detail Facili ty 04/01/2025 AMBULATORY - MEDICINE AMBULATORY - MEDICI NE [facility] 10/01/2024 Laboratory - Sole [facility]itcher Hand ry Order SED RATE, AUTOMATED BLOOD (LAV-BLOOD) SP [facility]
[2024-10-25 13:34] LABS: Basophils Absolute Auto 0.1 X10*3/uL (0.0-0.2); Basophils Percent Auto 0.9 % (0-2); Eosinophils Absolute Auto 0.3 X10*3/uL (0.0-0.4); Eosinophils Percent Auto 4.8 % (0-4); Hematocrit 44.8 % (42.0-52.0); Hemoglobin 15.9 g/dl (14.0-18.0); Imm Gran Abs Auto 0.01 X10*3/uL (0.00-0.03); Imm Gran Pct Auto 0.2 % (0.0-0.4); Lymphocytes Absolute Auto 1.3 X10*3/uL (1.2-4.9); Lymphocytes Percent Auto 20.4 % (20-40); Mean Corpuscular HGB Conc 35.5 g/dl (31.0-36.0); Mean Corpuscular Hemoglobin 30.8 pg (27.0-33.0); Mean Corpuscular Volume 86.8 fL (80.0-98.0); Mean Platelet Volume 10.9 fL (9.4-12.4); Monocytes Absolute Auto 0.7 X10*3/uL (0.1-1.2); Monocytes Percent Auto 11.1 % (2-11); Neutrophils Absolute Auto 4.1 x10*3/uL (2.0-8.3); Neutrophils Percent Auto 62.6 % (45-73); Platelet Count 189 X10*3/uL (160-400); Red Blood Count 5.16 X10*6/uL (4.60-5.80); Red Cell Distribution Width 13.2 % (11.0-16.0); White Blood Count 6.5 X10*3/uL (4.8-10.8)
[2024-10-25 14:07] LABS: Alanine Aminotransferase 41 U/L (0-40); Albumin Level 4.3 g/dL (3.5-5.0); Alkaline Phosphatase 75 U/L (39-117); Anion Gap 12 (12-20); Aspartate Amino Transferase 32 U/L (5-37); Bilirubin Total 0.7 mg/dL (0.0-1.0); Blood Urea Nitrogen 23 mg/dL (9-16); C Reactive Protein 0.34 mg/dL (< or = 0.50); Calcium 9.7 mg/dL (8.4-10.2); Carbon Dioxide 24 mmol/L (22-29); Chloride 106 mmol/L (96-108); Estimated Glomerular Filt Rate > 60; Glucose Random 85 mg/dL (60-115); Potassium 3.9 mmol/L (3.3-5.1); Sodium 138 mmol/L (135-145); Total Protein 7.5 g/dL (6.5-8.0)
[2024-10-25 14:08] LABS: HBS Num1 12.92 mIU/mL (0-7.99); HBc Num1 0.06 S/CO (0.00-0.79); HBsAGNum1 0.39 S/CO (0.00-0.99); Hepatitis A Antibody IgM 0.13 Index (0-0.79); Hepatitis B Core Antibody Nonreactive (Nonreactive); Hepatitis B Surface Antigen Negative (Negative); ~HepC Num1 0.06 S/CO (0.00-0.79); ~Hepatitis A Antibody IgM Nonreactive (Nonreactive); ~Hepatitis B Surface Antibody REACTIVE (Nonreactive); ~Hepatitis C Antibody Nonreactive (Nonreactive)
[2024-10-28 15:53] LABS: TS Negative Control Passed; TS Panel A 1; TS Panel B 0; TS Positive Control Passed; TSpotTB Negative (Negative)
== END 2024-10-25 12:21 | disposition home or self-care (01) ==
LOC: HO.LAB 12:20
PROVIDERS: Visit Provider Student in an Organized Health Care Education/Training Program
DX: M05.9 Rheumatoid arthritis with rheumatoid factor, unspecified (principal); Z11.7 Encounter for testing for latent tuberculosis infection; Z11.59 Encounter for screening for other viral diseases
CPT/HCPCS: 36415; 80053; 85025; 86140; 86481; 86704; 86706; 86709; 86803; 87340

== ENCOUNTER 2025-04-09 13:00 | Outpatient (REF) | payer OTHER, SELFPAY ==
--- NOTE | ~2025-04-09 | XR_ITS ---
EXAMINATION: Bilateral hands.INDICATION: Rheumatoid arthritis. COMPARISON: Bilateral hand 06/06/2023 TECHNIQUE: 3 views each hand. FINDINGS: LEFT HAND: There is mild loss of first and second metacarpophalangeal joints with mild erosive changes but no osteophytes seen. No loose bodies. There is mild soft tissue swelling. Rest of the MCP, PIP joints are normal. No fracture, lytic or sclerotic process. RIGHT HAND: Relatively unremarkable with no visible bony erosive changes, loss of joint space or osteophytes. No soft tissue swelling.
--- NOTE | ~2025-04-09 | XR_ITS ---
EXAMINATION: Bilateral wrist. CLINICAL INDICATION: Rheumatoid arthritis. Pain. TECHNIQUE: 3 views of each wrist. COMPARISON: Bilateral hand 06/06/2023. FINDINGS: Left wrist: There are subchondral cystic changes along the mid, pisiform and trapezial bones. Small cortical defect is seen along the radial border of the gastric region likely old injury or rheumatoid arthritic changes. There is no osteopenia. No acute fracture. The soft tissues are normal. Right wrist: Visualized intercarpal, radio-ulnar carpal and carpometacarpal joint spaces are maintained normal. No visible acute fracture, bony erosive changes or loose bodies seen. No abnormal joint effusion. XR/XR Wrist Gary min 3V IMPRESSION: Mild arthritic changes left wrist. The right wrist appears normal. No visible acute fracture or dislocation in either wrist.. Electronically signed by: Stu Bernstein MD 06/20/2025 10:17 AM EDT
[2025-04-09 15:37] LABS: MANUAL DIFF FLAG NO
--- OUTSIDE RECORDS SUMMARY | 2025-04-09 15:45 | XMS_ITS ---
Author Name Reno Woods Address Unknown Organization [facility] Team Providers Care Exercise Science Instructor Name Role Phone Unavailable Primary Care Physician Unavailab le History Of Present Illness No Data Medications Medication Generic Name RxNorm Strength Strength Unit Route Dose Dose Form Frequency Date Started Date Ended Status Indication Sig betamethaso ne, augmented betameth asone, augmente d 311449 0.05 % Topica l cream 02/16/20 23 suspend ed Appl y twic e mireille y to psor iasi s rash of the extr emit ies for 2 week s on, then take 1 week off. Repe at as need ed. Do not appl y to face or body fold s. calcipotrie ne calcipot riene 085898 0.005 % Topica l cream 06/22/20 21 suspend ed Appl y mireille y to twic e mireille y to psor iati c area s on trun k and extr emit ies. Do not appl y to face . OK to use on week off from topi tate ster oid. clobetasol [place] 359078 0.05 % Topica l cream BID 12/01/19 21 suspend ed Appl y twic e mireille y to affe cted area s of derm atit is on arms and trun k up to 2 week s then take 1 week off. May repe at as need ed. Avoi d face , axil la and groi n area s. clobetasol [place] ol 700623 0.05 % Topica l cream 02/05/20 22 suspend ed Appl y BID to affe cted psor iati c area s on trun k and extr emit ies up to 2 week s then take 1 week off. May repe at as need ed. Avoi d face , axil la and groi n area s. clobetasol [place] ol 973871 0.05 % Topica l ointm ent 11/10/19 23 suspend ed Appl y twic e mireille y to affe cted area s up to 2 week s/mo nth as need ed. [place]asol [place] 037074 0.05 % Topica l ointm ent 11/10/19 24 active Appl y twic e mireille y to psor iasi s of trun k and extr emit ies up to 2 week s on, then take 1 week off. Repe at as need ed. desonide desonide 326319 0.05 % Topica l ointm ent 11/10/19 24 active Appl y to rash of ears for 2 week s on, 1 week off. Repe at as need ed Aspirin Low Dose aspirin Oral suspend ed atorvastati n 80 mg Oral table t suspend ed cholecalcif alo (vitamin D3) 50 mcg (2,000 unit) Oral table t suspend ed doxycycline monohydrate doxycycl ine monohydr ate 8010544 100 mg Oral capsu le 06/01/20 23 suspend ed Take one caps ule by mout h with food twic e mireille y ezetimibe 10 mg Oral table t suspend ed ezetimibe ezetimib e 10 mg Oral table t suspend ed folic acid 1 mg Oral table t suspend ed lisinopril 10 mg Oral table t suspend ed methotrexat e sodium 2.5 mg Oral table t suspend ed Cimzia 400 mg/2 mL (200 mg/mL x 2) Subcut aneous syrin ge kit suspend ed Enbrel etanerce pt Subcut aneous active Humira adalimum ab Subcut aneous suspend ed Skyrizi risankiz umab-rza a 1742700 150 mg/mL Subcut aneous pen injec tor 06/15/[address] 1 pen (150 mg) SQ into the late ral thig h on week 0, week 4, then ever y 12 week s ther eaft er. Doxycycline Hyclate NULL 10/30/19 19 suspend ed Eucrisa NULL 09/18/19 19 suspend ed terbinafine HCl terbinaf ine HCl suspend ed Problems Problem Code Type Status Date of Diagnosis Date of Resolution Psoriasis vulgaris (disorder) 633195782( SNOMED) Diagnosis active 04/08/2025 Psoriasis vulgaris (disorder) 619505504( SNOMED) Diagnosis active 04/04/2025 Psoriasis vulgaris (disorder) 042326767( SNOMED) Diagnosis active 04/01/2025 Psoriasis vulgaris (disorder) 215962392( SNOMED) Diagnosis active 03/25/2025 Psoriasis vulgaris (disorder) 162385576( SNOMED) Diagnosis active 03/14/2025 Psoriasis vulgaris (disorder) 837887906( SNOMED) Diagnosis active 03/06/2025 Psoriasis vulgaris (disorder) 341269303( SNOMED) Diagnosis active 03/04/2025 Psoriasis vulgaris (disorder) 404573689( SNOMED) Diagnosis active 02/28/2025 Psoriasis vulgaris (disorder) 892566132( SNOMED) Diagnosis active 02/28/2025 Psoriasis vulgaris (disorder) 199799099( SNOMED) Diagnosis active 02/27/2025 Psoriasis vulgaris (disorder) 300178620( SNOMED) Diagnosis active 02/25/2025 Psoriasis vulgaris (disorder) 068546102( SNOMED) Diagnosis active 02/20/2025 Psoriasis vulgaris (disorder) 811695124( SNOMED) Diagnosis active 02/18/2025 Psoriasis vulgaris (disorder) 494732175( SNOMED) Diagnosis active 02/14/2025 Psoriasis vulgaris (disorder) 044180059( SNOMED) Diagnosis active 02/12/2025 Psoriasis vulgaris (disorder) 465822954( SNOMED) Diagnosis active 02/10/2025 Psoriasis vulgaris (disorder) 032445202( SNOMED) Diagnosis active 01/31/2025 Psoriasis vulgaris (disorder) 797908989( SNOMED) Diagnosis active 01/28/2025 Psoriasis vulgaris (disorder) 339900838( SNOMED) Diagnosis active 01/22/2025 Psoriasis vulgaris (disorder) 503417637( SNOMED) Diagnosis active 01/10/2025 Psoriasis vulgaris (disorder) 201368382( SNOMED) Diagnosis active 01/07/2025 Psoriasis vulgaris (disorder) 376192069( SNOMED) Diagnosis active 01/03/2025 Psoriasis vulgaris (disorder) 567800942( SNOMED) Diagnosis active 12/31/2024 Psoriasis vulgaris (disorder) 896804702( SNOMED) Diagnosis active 12/27/2024 Psoriasis vulgaris (disorder) 257831826( SNOMED) Diagnosis active 12/20/2024 Psoriasis vulgaris (disorder) 331671765( SNOMED) Diagnosis active 12/17/2024 Psoriasis vulgaris (disorder) 805391790( SNOMED) Diagnosis active 12/13/2024 Psoriasis vulgaris (disorder) 489195420( SNOMED) Diagnosis active 12/10/2024 Psoriasis vulgaris (disorder) 678107415( SNOMED) Diagnosis active 12/06/2024 Psoriasis vulgaris (disorder) 603960581( SNOMED) Diagnosis active 12/03/2024 Psoriasis vulgaris (disorder) 950603520( SNOMED) Diagnosis active 11/29/2024 Psoriasis vulgaris (disorder) 402285394( SNOMED) Diagnosis active 11/26/2024 Psoriasis vulgaris (disorder) 811283584( SNOMED) Diagnosis active 11/22/2024 Psoriasis vulgaris (disorder) 340294178( SNOMED) Diagnosis active 11/19/2024 Psoriasis vulgaris (disorder) 739645002( SNOMED) Diagnosis active 11/15/2024 Psoriasis vulgaris (disorder) 530487530( SNOMED) Diagnosis active 11/11/2024 Psoriasis vulgaris (disorder) 703611890( SNOMED) Diagnosis active 11/08/2024 Psoriasis vulgaris (disorder) 770404611( SNOMED) Diagnosis active 11/04/2024 Psoriasis vulgaris (disorder) 441607622( SNOMED) Diagnosis active 11/01/2024 Psoriasis vulgaris (disorder) 482150668( SNOMED) Diagnosis active 10/30/2024 Psoriasis vulgaris (disorder) 590709963( SNOMED) Diagnosis active 10/28/2024 Psoriasis vulgaris (disorder) 524663054( SNOMED) Diagnosis active 10/24/2024 Psoriasis vulgaris (disorder) 035550744( SNOMED) Diagnosis active 10/22/2024 Psoriasis vulgaris (disorder) 772284509( SNOMED) Diagnosis active 10/17/2024 Psoriasis vulgaris (disorder) 277902799( SNOMED) Diagnosis active 10/15/2024 Psoriasis vulgaris (disorder) 843698724( SNOMED) Diagnosis active 10/11/2024 Psoriasis vulgaris (disorder) 763499864( SNOMED) Diagnosis active 10/09/2024 Psoriasis vulgaris (disorder) 464179477( SNOMED) Diagnosis active 10/07/2024 Psoriasis vulgaris (disorder) 661999265( SNOMED) Diagnosis active 10/04/2024 Psoriasis vulgaris (disorder) 289323187( SNOMED) Diagnosis active 10/02/2024 Psoriasis vulgaris (disorder) 524340951( SNOMED) Diagnosis active 09/30/2024 Psoriasis vulgaris (disorder) 967907375( SNOMED) Diagnosis active 09/27/2024 Psoriasis vulgaris (disorder) 941106154( SNOMED) Diagnosis active 09/24/2024 Psoriasis vulgaris (disorder) 225130073( SNOMED) Diagnosis active 09/18/2024 Psoriasis vulgaris (disorder) 421351485( SNOMED) Diagnosis active 09/16/2024 Psoriasis vulgaris (disorder) 419481685( SNOMED) Diagnosis active 09/13/2024 Psoriasis vulgaris (disorder) 455105902( SNOMED) Diagnosis active 09/11/2024 Psoriasis vulgaris (disorder) 435158846( SNOMED) Diagnosis active 09/09/2024 Psoriasis vulgaris (disorder) 227619429( SNOMED) Diagnosis active 09/06/2024 Psoriasis vulgaris (disorder) 688782351( SNOMED) Diagnosis active 09/02/2024 Psoriasis vulgaris (disorder) 797860219( SNOMED) Diagnosis active 08/27/2024 Psoriasis vulgaris (disorder) 230365634( SNOMED) Diagnosis active 08/26/2024 Psoriasis vulgaris (disorder) 323611528( SNOMED) Diagnosis active 08/23/2024 Psoriasis vulgaris (disorder) 748022551( SNOMED) Diagnosis active 08/19/2024 Psoriasis vulgaris (disorder) 040449669( SNOMED) Diagnosis active 08/16/2024 Psoriasis vulgaris (disorder) 771835701( SNOMED) Diagnosis active 08/14/2024 Psoriasis vulgaris (disorder) 209661462( SNOMED) Diagnosis active 08/12/2024 Psoriasis vulgaris (disorder) 756285224( SNOMED) Diagnosis active 08/09/2024 Psoriasis vulgaris (disorder) 099697711( SNOMED) Diagnosis active 08/07/2024 Psoriasis vulgaris (disorder) 847812000( SNOMED) Diagnosis active 08/05/2024 Psoriasis vulgaris (disorder) 009687584( SNOMED) Diagnosis active 07/31/2024 Psoriasis vulgaris (disorder) 756176230( SNOMED) Diagnosis active 07/29/2024 Psoriasis vulgaris (disorder) 511896852( SNOMED) Diagnosis active 07/26/2024 Psoriasis vulgaris (disorder) 068236650( SNOMED) Diagnosis active 07/24/2024 Psoriasis vulgaris (disorder) 746716201( SNOMED) Diagnosis active 07/22/2024 Psoriasis vulgaris (disorder) 520430099( SNOMED) Diagnosis active 07/19/2024 Psoriasis vulgaris (disorder) 885630855( SNOMED) Diagnosis active 07/17/2024 Psoriasis vulgaris (disorder) 742132569( SNOMED) Diagnosis active 07/15/2024 Psoriasis vulgaris (disorder) 302658568( SNOMED) Diagnosis active 07/12/2024 Psoriasis vulgaris (disorder) 244649956( SNOMED) Diagnosis active 07/10/2024 Psoriasis vulgaris (disorder) 748344159( SNOMED) Diagnosis active 07/08/2024 Psoriasis vulgaris (disorder) 983018141( SNOMED) Diagnosis active 07/05/2024 Psoriasis vulgaris (disorder) 913148300( SNOMED) Diagnosis active 07/03/2024 Psoriasis vulgaris (disorder) 999089977( SNOMED) Diagnosis active 07/01/2024 Psoriasis vulgaris (disorder) 509547705( SNOMED) Diagnosis active 06/28/2024 Psoriasis vulgaris (disorder) 310052828( SNOMED) Diagnosis active 06/26/2024 Psoriasis vulgaris (disorder) 058813426( SNOMED) Diagnosis active 06/24/2024 Psoriasis vulgaris (disorder) 249330884( SNOMED) Diagnosis active 06/21/2024 Psoriasis vulgaris (disorder) 601148401( SNOMED) Diagnosis active 06/19/2024 Psoriasis vulgaris (disorder) 417625154( SNOMED) Diagnosis active 06/17/2024 Psoriasis vulgaris (disorder) 403805287( SNOMED) Diagnosis active 06/14/2024 Psoriasis vulgaris (disorder) 883486222( SNOMED) Diagnosis active 06/12/2024 Psoriasis vulgaris (disorder) 446668423( SNOMED) Diagnosis active 06/10/2024 Psoriasis vulgaris (disorder) 411081200( SNOMED) Diagnosis active 06/06/2024 Psoriasis vulgaris (disorder) 269184019( SNOMED) Diagnosis active 06/04/2024 Psoriasis vulgaris (disorder) 083765689( SNOMED) Diagnosis active 05/30/2024 Psoriasis vulgaris (disorder) 783089833( SNOMED) Diagnosis active 05/28/2024 Psoriasis vulgaris (disorder) 442839665( SNOMED) Diagnosis active 05/28/2024 Psoriasis vulgaris (disorder) 397028430( SNOMED) Diagnosis active 05/24/2024 Psoriasis vulgaris (disorder) 042807233( SNOMED) Diagnosis active 05/22/2024 Psoriasis vulgaris (disorder) 489852377( SNOMED) Diagnosis active 05/20/2024 Psoriasis vulgaris (disorder) 672226215( SNOMED) Diagnosis active 05/17/2024 Psoriasis vulgaris (disorder) 938536796( SNOMED) Diagnosis active 05/15/2024 Psoriasis vulgaris (disorder) 727588293( SNOMED) Diagnosis active 05/10/2024 Psoriasis vulgaris (disorder) 336874967( SNOMED) Diagnosis active 05/08/2024 Psoriasis vulgaris (disorder) 041232251( SNOMED) Diagnosis active 05/03/2024 Psoriasis vulgaris (disorder) 012097383( SNOMED) Diagnosis active 05/01/2024 Psoriasis vulgaris (disorder) 848531139( SNOMED) Diagnosis active 04/29/2024 Psoriasis vulgaris (disorder) 377268783( SNOMED) Diagnosis active 04/26/2024 Psoriasis vulgaris (disorder) 342564271( SNOMED) Diagnosis active 04/24/2024 Psoriasis vulgaris (disorder) 731018032( SNOMED) Diagnosis active 04/22/2024 Psoriasis vulgaris (disorder) 221134012( SNOMED) Diagnosis active 04/19/2024 Psoriasis vulgaris (disorder) 422707991( SNOMED) Diagnosis active 04/17/2024 Psoriasis vulgaris (disorder) 109782182( SNOMED) Diagnosis active 04/15/2024 Psoriasis vulgaris (disorder) 582883580( SNOMED) Diagnosis active 04/10/2024 Psoriasis vulgaris (disorder) 006835769( SNOMED) Diagnosis active 04/08/2024 Psoriasis vulgaris (disorder) 992736652( SNOMED) Diagnosis active 04/02/2024 Psoriasis vulgaris (disorder) 084342366( SNOMED) Diagnosis active 03/29/2024 Psoriasis vulgaris (disorder) 044757954( SNOMED) Diagnosis active 03/27/2024 Psoriasis vulgaris (disorder) 546574991( SNOMED) Diagnosis active 03/25/2024 Psoriasis vulgaris (disorder) 705791513( SNOMED) Diagnosis active 03/22/2024 Psoriasis vulgaris (disorder) 133861235( SNOMED) Diagnosis active 03/20/2024 Psoriasis vulgaris (disorder) 423414460( SNOMED) Diagnosis active 03/18/2024 Psoriasis vulgaris (disorder) 103612303( SNOMED) Diagnosis active 03/15/2024 Psoriasis vulgaris (disorder) 521376465( SNOMED) Diagnosis active 03/13/2024 Psoriasis vulgaris (disorder) 587324334( SNOMED) Diagnosis active 03/11/2024 Psoriasis vulgaris (disorder) 938372491( SNOMED) Diagnosis active 03/06/2024 Psoriasis vulgaris (disorder) 846768098( SNOMED) Diagnosis active 03/04/2024 Psoriasis vulgaris (disorder) 294838578( SNOMED) Diagnosis active 11/17/2023 Psoriasis vulgaris (disorder) 861536553( SNOMED) Diagnosis active 11/15/2023 Psoriasis vulgaris (disorder) 825801302( SNOMED) Diagnosis active 11/10/2023 Psoriasis vulgaris (disorder) 320014902( SNOMED) Diagnosis active 11/10/2023 Psoriasis vulgaris (disorder) 174425193( SNOMED) Diagnosis active 11/08/2023 Psoriasis vulgaris (disorder) 405565755( SNOMED) Diagnosis active 11/03/2023 Psoriasis vulgaris (disorder) 213543154( SNOMED) Diagnosis active 10/30/2023 Psoriasis vulgaris (disorder) 560585902( SNOMED) Diagnosis active 10/27/2023 Psoriasis vulgaris (disorder) 850060951( SNOMED) Diagnosis active 10/25/2023 Psoriasis vulgaris (disorder) 743797182( SNOMED) Diagnosis active 10/18/2023 Psoriasis vulgaris (disorder) 838576132( SNOMED) Diagnosis active 2023 Psoriasis vulgaris (disorder) 131864325( SNOMED) Diagnosis active 10/13/2023 Psoriasis vulgaris (disorder) 847720924( SNOMED) Diagnosis active 10/09/2023 Psoriasis vulgaris (disorder) 014305743( SNOMED) Diagnosis active 10/06/2023 Psoriasis vulgaris (disorder) 543217496( SNOMED) Diagnosis active 10/04/2023 Psoriasis vulgaris (disorder) 368203399( SNOMED) Diagnosis active 10/02/2023 Psoriasis vulgaris (disorder) 685759728( SNOMED) Diagnosis active 09/27/2023 Psoriasis vulgaris (disorder) 130288578( SNOMED) Diagnosis active 09/25/2023 Psoriasis vulgaris (disorder) 390709140( SNOMED) Diagnosis active 09/20/2023 Psoriasis vulgaris (disorder) 284614250( SNOMED) Diagnosis active 09/15/2023 Psoriasis vulgaris (disorder) 989149965( SNOMED) Diagnosis active 09/13/2023 Psoriasis vulgaris (disorder) 060463999( SNOMED) Diagnosis active 09/11/2023 Psoriasis vulgaris (disorder) 614027288( SNOMED) Diagnosis active 09/08/2023 Psoriasis vulgaris (disorder) ( SNOMED) Diagnosis active 09/06/2023 Psoriasis vulgaris (disorder) 443114012( SNOMED) Diagnosis active 09/01/2023 Psoriasis vulgaris (disorder) 862757894( SNOMED) Diagnosis active 08/30/2023 Psoriasis vulgaris (disorder) 262778421( SNOMED) Diagnosis active 08/21/2023 Psoriasis vulgaris (disorder) 761222028( SNOMED) Diagnosis active 08/18/2023 Psoriasis vulgaris (disorder) 610815485( SNOMED) Diagnosis active 08/16/2023 Psoriasis vulgaris (disorder) 468058056( SNOMED) Diagnosis active 08/14/2023 Psoriasis vulgaris (disorder) 580968491( SNOMED) Diagnosis active 08/11/2023 Psoriasis vulgaris (disorder) 793728494( SNOMED) Diagnosis active 08/09/2023 Psoriasis vulgaris (disorder) 882505660( SNOMED) Diagnosis active 08/09/2023 Psoriasis vulgaris (disorder) 498491236( SNOMED) Diagnosis active 06/16/2023 Psoriasis vulgaris (disorder) ( SNOMED) Diagnosis active 06/08/2023 Psoriasis vulgaris (disorder) ( SNOMED) Diagnosis active 06/01/2023 Psoriasis vulgaris (disorder) 086897981( SNOMED) Diagnosis active 02/15/2023 Psoriasis vulgaris (disorder) ( SNOMED) Diagnosis active 11/09/2022 Psoriasis vulgaris (disorder) ( SNOMED) Diagnosis active 02/04/2022 Disorder of pigmentation (disorder) 484250421( SNOMED) Diagnosis active 02/04/2022 Psoriasis vulgaris (disorder) ( SNOMED) Diagnosis active 10/05/2021 Psoriasis vulgaris (disorder) ( SNOMED) Diagnosis active 06/22/2021 Psoriasis vulgaris (disorder) 869568873( SNOMED) Diagnosis active 03/02/2021 Inflammatory dermatosis (disorder) 124149611( SNOMED) Diagnosis active 11/30/2020 Disorder of skin (disorder) 62137743(S NOMED) Diagnosis active 11/30/2020 Psoriasis vulgaris (disorder) 222869446( SNOMED) Diagnosis active 11/30/2020 Neoplasm of uncertain behavior of skin (disorder) 17817960(S NOMED) Diagnosis active 11/30/2020 Other specified dermatitis L30.8(ICD- 10) Diagnosis active 11/05/2019 Atopic dermatitis (disorder) 58643523(S NOMED) Diagnosis active 11/29/2018 Psoriasis vulgaris (disorder) 663016071( SNOMED) Diagnosis active 10/30/2018 Arthritis (disorder) 3620337(SN OMED) Problem active Eczema (disorder) 51232422(S NOMED) Problem active Psoriasis (disorder) 1688970(SN OMED) Problem active History of hypertension (situation) 948710690( SNOMED) Problem active Hypercholesterolemia (disorder) 73855596(S NOMED) Problem active History of clinical finding in subject (situation) 876199627( SNOMED) Problem active Results No data Encounters Service provided at [facility], [address] [place] [address], [address], [place], [place] [id number]. Office phonenumber is [phone]. Office fax number is [phone]. Encounter Diagnosis Location Date / Time Type Psoriasis (L40.0) [facility] 04/08/2025 12:30:00 [place] Reason For Referral No data Procedures Procedure Date Phototherapy of skin (procedure) 025 12:00 am UTC Phototherapy of skin (procedure) 025 12:00 am UTC Phototherapy of skin (procedure) 025 12:00 am UTC Phototherapy of skin (procedure) 025 12:00 am UTC Phototherapy of skin (procedure) 025 12:00 am UTC Phototherapy of skin (procedure) 025 12:00 am UTC Phototherapy of skin (procedure) 025 12:00 am UTC Phototherapy of skin (procedure) 025 12:00 am UTC Phototherapy of skin (procedure) 025 12:00 am UTC Phototherapy of skin (procedure) 025 12:00 am UTC Phototherapy of skin (procedure) 025 12:00 am UTC Phototherapy of skin (procedure) 025 12:00 am UTC Phototherapy of skin (procedure) 025 12:00 am UTC Phototherapy of skin (procedure) 025 12:00 am UTC Phototherapy of skin (procedure) 025 12:00 am UTC Phototherapy of skin (procedure) 025 12:00 am UTC Phototherapy of skin (procedure) 025 12:00 am UTC Phototherapy of skin (procedure) 025 12:00 am UTC Phototherapy of skin (procedure) 025 12:00 am UTC Phototherapy of skin (procedure) 025 12:00 am UTC Phototherapy of skin (procedure) 025 12:00 am UTC Phototherapy of skin (procedure) 025 12:00 am UTC Phototherapy of skin (procedure) 025 12:00 am UTC Phototherapy of skin (procedure) 025 12:00 am UTC Phototherapy of skin (procedure) 025 12:00 am UTC Phototherapy of skin (procedure) 025 12:00 am UTC Phototherapy of skin (procedure) 025 12:00 am UTC Phototherapy of skin (procedure) 025 12:00 am UTC Phototherapy of skin (procedure) 025 12:00 am UTC Phototherapy of skin (procedure) 025 12:00 am UTC Phototherapy of skin (procedure) 025 12:00 am UTC Phototherapy of skin (procedure) 025 12:00 am UTC Phototherapy of skin (procedure) 025 12:00 am UTC Phototherapy of skin (procedure) 025 12:00 am UTC Phototherapy of skin (procedure) 025 12:00 am UTC Phototherapy of skin (procedure) 025 12:00 am UTC Phototherapy of skin (procedure) 025 12:00 am UTC Phototherapy of skin (procedure) 025 12:00 am UTC Phototherapy of skin (procedure) 025 12:00 am UTC Phototherapy of skin (procedure) 025 12:00 am UTC Phototherapy of skin (procedure) 025 12:00 am UTC Phototherapy of skin (procedure) 025 12:00 am UTC Phototherapy of skin (procedure) 025 12:00 am UTC Phototherapy of skin (procedure) 025 12:00 am UTC Phototherapy of skin (procedure) 025 12:00 am UTC Phototherapy of skin (procedure) 025 12:00 am UTC Phototherapy of skin (procedure) 025 12:00 am UTC Phototherapy of skin (procedure) 025 12:00 am UTC Phototherapy of skin (procedure) 025 12:00 am UTC Phototherapy of skin (procedure) 025 12:00 am UTC Phototherapy of skin (procedure) 025 12:00 am UTC Phototherapy of skin (procedure) 025 12:00 am UTC Phototherapy of skin (procedure) 025 12:00 am UTC Phototherapy of skin (procedure) 025 12:00 am UTC Phototherapy of skin (procedure) 025 12:00 am UTC Phototherapy of skin (procedure) 025 12:00 am UTC Phototherapy of skin (procedure) 025 12:00 am UTC Phototherapy of skin (procedure) 025 12:00 am UTC Phototherapy of skin (procedure) 024 12:00 am UTC Phototherapy of skin (procedure) 024 12:00 am UTC Phototherapy of skin (procedure) 024 12:00 am UTC Phototherapy of skin (procedure) 024 12:00 am UTC Phototherapy of skin (procedure) 024 12:00 am UTC Phototherapy of skin (procedure) 024 12:00 am UTC Phototherapy of skin (procedure) 024 12:00 am UTC Phototherapy of skin (procedure) 024 12:00 am UTC Phototherapy of skin (procedure) 12/04/2 024 12:00 am UTC Phototherapy of skin (procedure) 024 12:00 am UTC Phototherapy of skin (procedure) 024 12:00 am UTC Phototherapy of skin (procedure) 024 12:00 am UTC Phototherapy of skin (procedure) 024 12:00 am UTC Phototherapy of skin (procedure) 024 12:00 am UTC Phototherapy of skin (procedure) 024 12:00 am UTC Phototherapy of skin (procedure) 024 12:00 am UTC Phototherapy of skin (procedure) 024 12:00 am UTC Phototherapy of skin (procedure) 024 12:00 am UTC Phototherapy of skin (procedure) 024 12:00 am UTC Phototherapy of skin (procedure) 024 12:00 am UTC Phototherapy of skin (procedure) 024 12:00 am UTC Phototherapy of skin (procedure) 024 12:00 am UTC Phototherapy of skin (procedure) 024 12:00 am UTC Phototherapy of skin (procedure) 024 12:00 am UTC Phototherapy of skin (procedure) 024 12:00 am UTC Phototherapy of skin (procedure) 024 12:00 am UTC Phototherapy of skin (procedure) 024 12:00 am UTC Phototherapy of skin (procedure) 024 12:00 am UTC Phototherapy of skin (procedure) 024 12:00 am UTC Phototherapy of skin (procedure) 024 12:00 am UTC Phototherapy of skin (procedure) 024 12:00 am UTC Phototherapy of skin (procedure) 024 12:00 am UTC Phototherapy of skin (procedure) 024 12:00 am UTC Phototherapy of skin (procedure) 024 12:00 am UTC Phototherapy of skin (procedure) 024 12:00 am UTC Phototherapy of skin (procedure) 024 12:00 am UTC Phototherapy of skin (procedure) 024 12:00 am UTC Phototherapy of skin (procedure) 024 12:00 am UTC Phototherapy of skin (procedure) 024 12:00 am UTC Phototherapy of skin (procedure) 024 12:00 am UTC Phototherapy of skin (procedure) 024 12:00 am UTC Phototherapy of skin (procedure) 024 12:00 am UTC Phototherapy of skin (procedure) 024 12:00 am UTC Phototherapy of skin (procedure) 024 12:00 am UTC Phototherapy of skin (procedure) 024 12:00 am UTC Phototherapy of skin (procedure) 024 12:00 am UTC Phototherapy of skin (procedure) 024 12:00 am UTC Phototherapy of skin (procedure) 024 12:00 am UTC Phototherapy of skin (procedure) 024 12:00 am UTC Phototherapy of skin (procedure) 024 12:00 am UTC Phototherapy of skin (procedure) 024 12:00 am UTC Phototherapy of skin (procedure) 024 12:00 am UTC Phototherapy of skin (procedure) 024 12:00 am UTC Phototherapy of skin (procedure) 024 12:00 am UTC Phototherapy of skin (procedure) 024 12:00 am UTC Phototherapy of skin (procedure) 024 12:00 am UTC Phototherapy of skin (procedure) 024 12:00 am UTC Phototherapy of skin (procedure) 024 12:00 am UTC Phototherapy of skin (procedure) 024 12:00 am UTC Phototherapy of skin (procedure) 024 12:00 am UTC Phototherapy of skin (procedure) 024 12:00 am UTC Phototherapy of skin (procedure) 024 12:00 am UTC Phototherapy of skin (procedure) 024 12:00 am UTC Phototherapy of skin (procedure) 024 12:00 am UTC Phototherapy of skin (procedure) 024 12:00 am UTC Phototherapy of skin (procedure) 024 12:00 am UTC Phototherapy of skin (procedure) 024 12:00 am UTC Phototherapy of skin (procedure) 024 12:00 am UTC Phototherapy of skin (procedure) 024 12:00 am UTC Phototherapy of skin (procedure) 024 12:00 am UTC Phototherapy of skin (procedure) 024 12:00 am UTC Phototherapy of skin (procedure) 024 12:00 am UTC Phototherapy of skin (procedure) 024 12:00 am UTC Phototherapy of skin (procedure) 024 12:00 am UTC Phototherapy of skin (procedure) 024 12:00 am UTC Phototherapy of skin (procedure) 024 12:00 am UTC Phototherapy of skin (procedure) 024 12:00 am UTC Phototherapy of skin (procedure) 024 12:00 am UTC Phototherapy of skin (procedure) 024 12:00 am UTC Phototherapy of skin (procedure) 024 12:00 am UTC Phototherapy of skin (procedure) 024 12:00 am UTC Phototherapy of skin (procedure) 024 12:00 am UTC Phototherapy of skin (procedure) 024 12:00 am UTC Phototherapy of skin (procedure) 024 12:00 am UTC Phototherapy of skin (procedure) 024 12:00 am UTC Phototherapy of skin (procedure) 024 12:00 am UTC Phototherapy of skin (procedure) 024 12:00 am UTC Phototherapy of skin (procedure) 024 12:00 am UTC Phototherapy of skin (procedure) 024 12:00 am UTC Phototherapy of skin (procedure) 024 12:00 am UTC Phototherapy of skin (procedure) 023 12:00 am UTC Phototherapy of skin (procedure) 023 12:00 am UTC Phototherapy of skin (procedure) 023 12:00 am UTC Phototherapy of skin (procedure) 023 12:00 am UTC Punch biopsy (procedure) 06/01/2023 12:0 0 am UTC Shave biopsy (procedure) 06/01/2023 12:0 0 am UTC Shave biopsy (procedure) 11/30/2020 12:0 0 am [place] Documentation of past medical history (p rocedure) Documentation of past medical history (p rocedure) Documentation of past medical history (p rocedure) Documentation of past medical history (p rocedure) Documentation of past medical history (p rocedure) Documentation of past medical history (p rocedure) Documentation of past medical history (p rocedure) Documentation of past medical history (p rocedure) Documentation of past medical history (p rocedure) Documentation of past medical history (p rocedure) Documentation of past medical history (p rocedure) Documentation of past medical history (p rocedure) Documentation of past medical history (p rocedure) Documentation of past medical history (p rocedure) Documentation of past medical history (p rocedure) Documentation of past medical history (p rocedure) Documentation of past medical history (p rocedure) Documentation of past medical history (p rocedure) Documentation of past medical history (p rocedure) Documentation of past medical history (p rocedure) Documentation of past medical history (p rocedure) Documentation of past medical history (p rocedure) Documentation of past medical history (p rocedure) Documentation of past medical history (p rocedure) Documentation of past medical history (p rocedure) Documentation of past medical history (p rocedure) Documentation of past medical history (p rocedure) Documentation of past medical history (p rocedure) Documentation of past medical history (p rocedure) Documentation of past medical history (p rocedure) Documentation of past medical history (p rocedure) Documentation of past medical history (p rocedure) Documentation of past medical history (p rocedure) Documentation of past medical history (p rocedure) Documentation of past medical history (p rocedure) Documentation of past medical history (p rocedure) Documentation of past medical history (p rocedure) Documentation of past medical history (p rocedure) Documentation of past medical history (p rocedure) Documentation of past medical history (p rocedure) Documentation of past medical history (p rocedure) Documentation of past medical history (p rocedure) Documentation of past medical history (p rocedure) Documentation of past medical history (p rocedure) Documentation of past medical history (p rocedure) Documentation of past medical history (p rocedure) Documentation of past medical history (p rocedure) Documentation of past medical history (p rocedure) Documentation of past medical history (p rocedure) Documentation of past medical history (p rocedure) Documentation of past medical history (p rocedure) Documentation of past medical history (p rocedure) Documentation of past medical history (p rocedure) Documentation of past medical history (p rocedure) Documentation of past medical history (p rocedure) Documentation of past medical history (p rocedure) Documentation of past medical history (p rocedure) Documentation of past medical history (p rocedure) Documentation of past medical history (p rocedure) Documentation of past medical history (p rocedure) Documentation of past medical history (p rocedure) Documentation of past medical history (p rocedure) Documentation of past medical history (p rocedure) Documentation of past medical history (p rocedure) Documentation of past medical history (p rocedure) Documentation of past medical history (p rocedure) Documentation of past medical history (p rocedure) Documentation of past medical history (p rocedure) Documentation of past medical history (p rocedure) Documentation of past medical history (p rocedure) Documentation of past medical history (p rocedure) Documentation of past medical history (p rocedure) Documentation of past medical history (p rocedure) Documentation of past medical history (p rocedure) Documentation of past medical history (p rocedure) Documentation of past medical history (p rocedure) Documentation of past medical history (p rocedure) Documentation of past medical history (p rocedure) Documentation of past medical history (p rocedure) Documentation of past medical history (p rocedure) Documentation of past medical history (p rocedure) Documentation of past medical history (p rocedure) Documentation of past medical history (p rocedure) Documentation of past medical history (p rocedure) Documentation of past medical history (p rocedure) Documentation of past medical history (p rocedure) Documentation of past medical history (p rocedure) Documentation of past medical history (p rocedure) Documentation of past medical history (p rocedure) Documentation of past medical history (p rocedure) Documentation of past medical history (p rocedure) Documentation of past medical history (p rocedure) Documentation of past medical history (p rocedure) Documentation of past medical history (p rocedure) Documentation of past medical history (p rocedure) Documentation of past medical history (p rocedure) Documentation of past medical history (p rocedure) Documentation of past medical history (p rocedure) Documentation of past medical history (p rocedure) Documentation of past medical history (p rocedure) Documentation of past medical history (p rocedure) Documentation of past medical history (p rocedure) Documentation of past medical history (p rocedure) Documentation of past medical history (p rocedure) Documentation of past medical history (p rocedure) Documentation of past medical history (p rocedure) Documentation of past medical history (p rocedure) Documentation of past medical history (p rocedure) Documentation of past medical history (p rocedure) Documentation of past medical history (p rocedure) Documentation of past medical history (p rocedure) Documentation of past medical history (p rocedure) Documentation of past medical history (p rocedure) Documentation of past medical history (p rocedure) Documentation of past medical history (p rocedure) Documentation of past medical history (p rocedure) Documentation of past medical history (p rocedure) Documentation of past medical history (p rocedure) Documentation of past medical history (p rocedure) Documentation of past medical history (p rocedure) Documentation of past medical history (p rocedure) Documentation of past medical history (p rocedure) Documentation of past medical history (p rocedure) Documentation of past medical history (p rocedure) Documentation of past medical history (p rocedure) Documentation of past medical history (p rocedure) Documentation of past medical history (p rocedure) Documentation of past medical history (p rocedure) Documentation of past medical history (p rocedure) Documentation of past medical history (p rocedure) Documentation of past medical history (p rocedure) Documentation of past medical history (p rocedure) Documentation of past medical history (p rocedure) Documentation of past medical history (p rocedure) Documentation of past medical history (p rocedure) Documentation of past medical history (p rocedure) Documentation of past medical history (p rocedure) Documentation of past medical history (p rocedure) Documentation of past medical history (p rocedure) Documentation of past medical history (p rocedure) Documentation of past medical history (p rocedure) Documentation of past medical history (p rocedure) Documentation of past medical history (p rocedure) Documentation of past medical history (p rocedure) Documentation of past medical history (p rocedure) Documentation of past medical history (p rocedure) Documentation of past medical history (p rocedure) Documentation of past medical history (p rocedure) Documentation of past medical history (p rocedure) Documentation of past medical history (p rocedure) Documentation of past medical history (p rocedure) Documentation of past medical history (p rocedure) Documentation of past medical history (p rocedure) Documentation of past medical history (p rocedure) Documentation of past medical history (p rocedure) Documentation of past medical history (p rocedure) Documentation of past medical history (p rocedure) Documentation of past medical history (p rocedure) Documentation of past medical history (p rocedure) Documentation of past medical history (p rocedure) Documentation of past medical history (p rocedure) Documentation of past medical history (p rocedure) Documentation of past medical history (p rocedure) Documentation of past medical history (p rocedure) Documentation of past medical history (p rocedure) Documentation of past medical history (p rocedure) Documentation of past medical history (p rocedure) Documentation of past medical history (p rocedure) Documentation of past medical history (p rocedure) Documentation of past medical history (p rocedure) Documentation of past medical history (p rocedure) Documentation of past medical history (p rocedure) Documentation of past medica l history (procedure) Appendectomy. Review Of Systems No Data Assessment 1.PsoriasisPhototherapy Treatment: Total Body Time - 2:29 MIN; Comments on Previous Treatment - 2 xweekly increase by 20 mj as tolerated only if pt allows; Protocol - Photochemotherapy: Mineral Oil and NBUVB; Location (Body Touches will Override) - full body; Total Treatment Time - 2:29 MIN; TotalBody Energy - 550 MJ HOLD; Skin Type - I; Treatment Number - 144; Render Post-care in the Note - no. Plan of Care Code Detail Instructions [id number] clobetasol 0.05 % topical ointme nt Apply twice daily to psoriasis of trunk and extremities up to 2 weeks on, then take 1 week off. Repeat as needed. [id number] clobetasol 0.05 % topical ointme nt Apply twice daily to psoriasis of trunk and extremities up to 2 weeks on, then take 1 week off. Repeat as needed. [id number] clobetasol 0.05 % topical ointme nt Apply twice daily to psoriasis of trunk and extremities up to 2 weeks on, then take 1 week off. Repeat as needed. [id number] desonide 0.05 % topical ointment Apply to rash of ears for 2 weeks on, 1 week off. Repeat as needed [id number] Skyrizi 150 mg/mL larry bcutaneous pen injector Inject 1 pen (150 mg) SQ into the lateral thigh on week 0, week 4, then every 12 weeks thereafter. [id number] Skyrizi 150 mg/mL larry bcutaneous pen injector Inject 1 pen (150 mg) SQ into the lateral thigh on week 0, week 4, then every 12 weeks thereafter. [id number] doxycycline monohydrate 100 mg c apsule Take one capsule by mouth with food twice daily [id number] betamethasone, augme nted 0.05 % topical cream Apply twice daily to psoriasis rash of the extremities for 2 weeks on, then take 1 week off. Repeat as needed. Do not apply to face or body folds. [id number] clobetasol 0.05 % topical ointme nt Apply twice daily to affected areas up to 2 weeks/month as needed. [id number] clobetasol 0.05 % topical cream Apply twice daily to psoriasis up to 2 weeks/month as needed. [id number] clobetasol 0.05 % topical cream Apply BID to affected psoriatic areas on trunk and extremities up to 2 weeks then take 1 week off. May repeat as needed. Avoid face, axilla and groin areas. [id number] clobetasol 0.05 % topical cream Apply BID to affected psoriatic areas on trunk and extremities up to 2 weeks then take 1 week off. May repeat as needed. Avoid face, axilla and groin areas. [id number] calcipotriene 0.005 % topical cr eam Apply daily to twice daily to psoriatic areas on trunk and extremities. Do not apply to face. OK to use on week off from topical steroid. [id number] clobetasol 0.05 % topical cream Apply twice daily to affected areas of dermatitis on arms and trunk up to 2 weeks then take 1 week off. May repeat as needed. Avoid face, axilla and groin areas. Instructions No Data Social History Code Activity Start Date End Date [id number] ([employer]) Former smoker Sex male Sexual orientation Unspecified Gender identity Unspecified Vital Signs No data
[2025-04-09 15:52] LABS: Hematocrit 42.9 % (42.0-52.0); Hemoglobin 14.8 g/dl (14.0-18.0); Imm Gran Abs Auto 0.01 X10*3/uL (0.00-0.03); Imm Gran Pct Auto 0.1 % (0.0-0.4); Lymphocytes Absolute Auto 1.5 X10*3/uL (1.2-4.9); Mean Corpuscular HGB Conc 34.5 g/dl (31.0-36.0); Mean Corpuscular Hemoglobin 30.2 pg (27.0-33.0); Mean Corpuscular Volume 87.6 fL (80.0-98.0); NRBC Abs Auto 0.000 X10*3/uL (0.0-0.012); NRBC Pct Auto 0.0 /100WBC (0.0-0.2); Platelet Count 203 X10*3/uL (160-400); Red Blood Count 4.90 X10*6/uL (4.60-5.80); White Blood Count 7.1 X10*3/uL (4.8-10.8)
[2025-04-09 16:17] LABS: Alanine Aminotransferase 39 U/L (0-40); Aspartate Amino Transferase 38 U/L (5-37); Estimated Glomerular Filt Rate > 60
--- NOTE | 2025-04-10 06:37 | XR_ITS ---
EXAMINATION: Bilateral hands.INDICATION: Rheumatoid arthritis. COMPARISON: Bilateral hand 06/06/2023 TECHNIQUE: 3 views each hand. FINDINGS: LEFT HAND: There is mild loss of first and second metacarpophalangeal joints with mild erosive changes but no osteophytes seen. No loose bodies. There is mild soft tissue swelling. Rest of the MCP, PIP joints are normal. No fracture, lytic or sclerotic process. RIGHT HAND: Relatively unremarkable with no visible bony erosive changes, loss of joint space or osteophytes. No soft tissue swelling. [facility] X[facility]XR Hand Bilat min 3v IMPRESSION: Marginal erosions and loss of joint space left hand first and second MCP joints. This has been present since the last exam of 06/06/2023. There is no worsening seen. The right hand appears grossly unremarkable and unchanged Electronically signed by: Stu Bernstein MD 04/10/2025 07:37 AM EDT
--- NOTE | 2025-04-11 13:01 | XR_ITS ---
EXAMINATION: Bilateral foot exam. CLINICAL INDICATION: Rheumatoid arthritis. COMPARISON: Bilateral foot exam 06/23/2023. TECHNIQUE: 3 views each foot. FINDINGS: BILATERAL FOOT: The ankle mortise and subtalar joints are normal. Visualized intertarsal, tarsometatarsal, metatarsophalangeal and interphalangeal joints are maintained normal. No bony erosive changes, enthesophytes or soft tissue calcification. IMPRESSION: Unremarkable bilateral foot exam. Electronically signed by: Stu Bernstein MD 04/11/2025 1:01 PM CDT [facility] XR/XR Foot Gary 3V IMPRESSION: Marginal erosions and loss of joint space left hand first and second MCP joints. This has been present since the last exam of 06/06/2023. There is no worsening seen. The right hand appears grossly unremarkable and unchanged Electronically signed by: Stu Bernstein MD 04/10/2025 07:37 AM EDT
== END 2025-04-09 13:01 | disposition home or self-care (01) ==
LOC: HO.LAB 13:00
PROVIDERS: PCP Nurse Practitioner Family; Visit Provider Internal Medicine Rheumatology
DX: M05.9 Rheumatoid arthritis with rheumatoid factor, unspecified (principal); R74.01 Elevation of levels of liver transaminase levels; L40.9 Psoriasis, unspecified; M25.632 Stiffness of left wrist, not elsewhere classified; Z79.899 Other long term (current) drug therapy
CPT/HCPCS: 36415; 73110; 73130; 73630; 82565; 84450; 84460; 85025; 85652; 86140

== ENCOUNTER 2025-04-09 13:00 | Outpatient (AMB) | payer OTHER, SELFPAY ==
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
--- NOTE | 2025-04-09 13:09 | MHC.OFFVIS ---
Vital Signs 04/09/25 13:10 Height 5 ft 7 in BP 120/70 Blood Pressure Location Rt brachial Position Sitting Pulse 52 Pulse Oximetry (%) 98 Oxygen Delivery Method Room Air Intake Visit Reasons: RA Intake Note: Patient presents for RA. Accompanied by: Self / Same As Patient Allergies No Known Allergies Allergy (Verified 04/09/25 13:15) HPI HPI RA: Details: Left wrist stiffness and soreness in the morning. [facility] Medical History Obesity Sleep apnea HTN (hypertension) CAD (coronary artery disease) Ischemic cardiomyopathy Seropositive rheumatoid arthritis Surgical History S/P skin biopsy Status post cardiac surgery Family History Father CVD (cardiovascular disease) Mother No problems noted. Maternal Grandfather CVD (cardiovascular disease) Social History Alcohol intake: current Alcohol intake frequency: a few times a month Alcohol type: beer and hard liquor Patient Tobacco Use Status: Never used Tobacco e-Cigarette/Vaping Use: Never Used Physical Exam Vital Signs: Last Vital Signs Pulse 52 04/09/25 13:10 BP 120/70 04/09/25 13:10 Pulse Ox 98 04/09/25 13:10 Oxygen Delivery Method Room Air 04/09/25 13:10 Const Other: General: Comfortable CVS: RRR Respiratory: clear to auscultation bilaterally. Good respiratory effort Skin: No lesions seen MSK: Chronic synovial thickening 3rd right MCP. Synovitis right 2nd and 3rd MCP with tenderness on palpation. Left wrist is tender with synovitis present. Right ankle synovitis present. Normal range of motion of upper extremities and lower extremities. Assessment & Plan Assessment & Plan (1) Seropositive rheumatoid arthritis: Comment: Inflammatory arthritis is not controlled. We discussed next steps with NSAID to control inflammatory arthritis. I am avoiding prednisone course due to risk of of worsening plantar pustulosis. He currently has psoriasis involving his palm of hands and previous history of plaque psoriasis. If he continues to have synovitis next visit, I will need to discuss considering adding adjunct DMARD sulfasalazine. In the past he was on methotrexate and Enbrel but methotrexate was discontinued due to persistent mild transaminitis January 2021. He continues to have transaminitis (persistent elevation in ALT and intermittent elevation in AST) from reviewing labs in [place]. Rheumatoid arthritis: Erosive, Seropositive (RF, CCP) with PsO. Methotrexate- November 2018-May 2020-elevated liver function. Enbrel- February 2019-May 2020-(worked best according to patient but discontinued due to worsening psoriasis). Humira- January 2021- October 2021- increased psoriasis. Orencia- November 2021 to self stopped by patient. September 2022 due to increased psoriasis. Cimzia-10/2022-05/2023 ongoing arthritis & worsening rashes. Rituximab 07/2023 2 cycles effective (feeling hungry after eating). Enbrel 02/2024 effective (for RA). He felt the best when he was on combination methotrexate and Enbrel but methotrexate was discontinued January 2021 due to persistent mild transaminitis. He also had more weight at the time ? Hepatic steatosis contributing. Code(s): M05.9 - Rheumatoid arthritis with rheumatoid factor, unspecified Category: Medical Plan: Continue Enbrel 50 mg SC once weekly Labs due for drug monitoring on high risk medication Start meloxicam 15 mg daily I will consider ordering ultrasound liver elastography if he continues to have persistent transaminitis RTC 3 months (2) Transaminitis: Code(s): R74.01 - Elevation of levels of liver transaminase levels Category: Medical Plan: See above (3) Other penitentiary (current) drug therapy: Code(s): Z79.899 - Other intermodal dispatcher (current) drug therapy Category: Medical Plan: See above Orders: Orders XR Wrist Gary min 3V Today M05.9 - Rheumatoid arthritis with rheumatoid factor, unspecified XR Foot Gary 3V Today M05.9 - Rheumatoid arthritis with rheumatoid factor, unspecified XR Hand Gary 2V Today M05.9 - Rheumatoid arthritis with rheumatoid factor, unspecified Medications: New meloxicam 15 mg PO DAILY 30 tabs 2RF Coding Level of Care Code Est Pt Level 5 (20047) Complex EM visit Add On G2211 Diagnoses Seropositive rheumatoid arthritis M05.9 Transaminitis R74.01 Other intermodal dispatcher (current) drug therapy Z79.899 Time Spent (min) 40
[2025-04-09 13:10] VITALS: BP 120/70; PULSE 52; O2SAT 98
== END 2025-04-09 14:02 | disposition home or self-care (01) ==
LOC: HO.RHES 13:00
PROVIDERS: PCP Nurse Practitioner Family; Visit Provider Internal Medicine Rheumatology
DX: M05.79 Rheumatoid arthritis with rheumatoid factor of multiple sites without organ or systems involvement (principal); R74.01 Elevation of levels of liver transaminase levels; Z79.899 Other long term (current) drug therapy
CPT/HCPCS: 99215

== ENCOUNTER → 2025-04-09 16:32 | Outpatient (BNV) | payer OTHER, SELFPAY | PROVIDERS: PCP Nurse Practitioner Family; Visit Provider Radiology Diagnostic Radiology | DX: M05.742 Rheumatoid arthritis with rheumatoid factor of left hand without organ or systems involvement (principal); M06.071 Rheumatoid arthritis without rheumatoid factor, right ankle and foot; M06.072 Rheumatoid arthritis without rheumatoid factor, left ankle and foot | CPT/HCPCS: 73110; 73130; 73630 ==

== ENCOUNTER 2025-04-15 16:24 | Outpatient (REF) | payer OTHER, SELFPAY ==
--- NOTE | ~2025-04-15 | XR_ITS ---
EXAMINATION: XR ANKLE 3 OR MORE VIEWS RIGHT HISTORY: M05.9 - Rheumatoid arthritis with rheumatoid factor, unspecified COMPARISON: Comparison is made with the prior examination dated 06/06/2023. FINDINGS: Three views of the right ankle are submitted. Osseous mineralization is normal. There is no fracture or dislocation. The joint spaces are preserved. There is soft tissue swelling medially. XR/XR ankle RT min 3V IMPRESSION: Medial soft tissue swelling. No osseous abnormality is identified. Electronically signed by: Esa Pelaez MD 04/16/2025 07:20 AM EDT
== END 2025-04-15 16:25 | disposition home or self-care (01) ==
LOC: HO.XRAY 16:24
PROVIDERS: Visit Provider Internal Medicine Rheumatology
DX: M05.9 Rheumatoid arthritis with rheumatoid factor, unspecified (principal)
CPT/HCPCS: 73610

== ENCOUNTER → 2025-04-15 16:50 | Outpatient (BNV) | payer OTHER, SELFPAY | PROVIDERS: Visit Provider Radiology Diagnostic Radiology | DX: M05.79 Rheumatoid arthritis with rheumatoid factor of multiple sites without organ or systems involvement (principal) | CPT/HCPCS: 73610 ==

== ENCOUNTER 2025-06-12 11:28 | Outpatient (AMB) | payer OTHER, SELFPAY ==
[2025-06-12 11:33] VITALS: BP 132/70; PULSE 60; O2SAT 99; BMI 34.6
--- NOTE | 2025-06-12 11:33 | A.OFFVIS_ITS ---
Vital Signs 06/12/25 11:33 Height 5 ft 7 in Weight 221 lb BMI 34.6 BP 132/70 Blood Pressure Location Lt brachial Position Sitting Pulse 60 Pulse Source Pulse Oximeter Pulse Oximetry (%) 99 Oxygen Delivery Method Room Air Intake Visit Reasons: Obstructive sleep apnea Allergies No Known Allergies Allergy (Verified 06/12/25 11:39) HPI HPI Obstructive sleep apnea: Details: 44-year-old gentleman with underlying history of rheumatoid arthritis previously on methotrexate, followed for underlying mild obstructive sleep apnea well controlled on current CPAP therapy. [facility] Medical History Obesity Sleep apnea HTN (hypertension) CAD (coronary artery disease) Ischemic cardiomyopathy Seropositive rheumatoid arthritis Surgical History S/P skin biopsy Status post cardiac surgery Family History Father CVD (cardiovascular disease) Mother No problems noted. Maternal Grandfather CVD (cardiovascular disease) Social History Alcohol intake: current Alcohol intake frequency: a few times a month Alcohol type: beer and hard liquor Patient Tobacco Use Status: Never used Tobacco e-Cigarette/Vaping Use: Never Used Review of Systems Const Denies daytime sleepiness, Denies excessive sweating, Denies fatigue, Denies fever(s), Denies lethargy, Denies malaise, Denies night sweats, Denies snoring and Denies weight loss Eyes Denies blurry vision and Denies itchy eyes ENT Denies nasal congestion, Denies post nasal drip, Denies sinus pain, Denies sinus pressure and Denies other ( Thrush) Card Denies chest pain, Denies pedal edema, Denies dyspnea, Denies orthopnea and Denies paroxysmal nocturnal dyspnea Resp Denies cough, Denies hemoptysis, Denies excessive phlegm production, Denies dyspnea, Denies snoring and Denies wheezing GI Denies abdominal pain and Denies heartburn Musc Denies myalgias, Denies arthralgias and Denies joint swelling Skin/Breast Denies rash Neuro Denies memory loss and Denies seizure-like activity Psych Denies abnormal sleep pattern, Denies anxiety and Denies memory loss Endo Denies excessive sweating, Denies fatigue and Denies heat intolerance David/Lymph Denies easy bruising Aller/Immun Denies itchy eyes, Denies seasonal rhinorrhea and Denies wheezing Physical Exam Vital Signs: Last Vital Signs Pulse 60 06/12/25 11:33 BP 132/70 06/12/25 11:33 Pulse Ox 99 06/12/25 11:33 Oxygen Delivery Method Room Air 06/12/25 11:33 BMI result Body Mass Index 34.6 Const General: no acute distress and alert Nutritional Appearance: not obese Orientation/consciousness: Other orientation findings ( oriented) HEENT Head: Yes atraumatic Eyes General: appearance normal, both eyes and all related structures Sclerae: sclerae normal EOM: EOMs intact bilaterally Neck Neck: Yes supple Lymphatic: no lymphadenopathy noted Resp Effort & Inspection: normal respiratory effort and no use of accessory muscles Auscultation: clear to auscultation bilaterally Cardio Rate: regular rate Rhythm: regular rhythm Heart sounds: no gallops, no murmurs and no rubs Skin General skin exam: other ( warm) Extrem General: No clubbing, No cyanosis and No edema Assessment & Plan Assessment & Plan (1) Sleep apnea: Code(s): G47.30 - Sleep apnea, unspecified Category: Medical Plan: Therapy and compliance report reviewed - patient is benefitting from and is compliant with noninvasive positive pressure ventilation treatment, using it greater than 70% of the time, more than 4 hours per night. Continue current CPAP therapy. Coding Level of Care Code Est Pt Level 3 (63348) Diagnoses Sleep apnea G47.30
== END 2025-06-12 11:53 | disposition home or self-care (01) ==
LOC: HO.HPS 11:28
PROVIDERS: Visit Provider Internal Medicine Pulmonary Disease
DX: G47.30 Sleep apnea, unspecified (principal)
CPT/HCPCS: 99213

== ENCOUNTER 2025-07-16 07:52 | Outpatient (REF) | payer OTHER, SELFPAY ==
[2025-07-16 16:18] LABS: MANUAL DIFF FLAG NO
[2025-07-16 16:37] LABS: Hematocrit 43.4 % (42.0-52.0); Hemoglobin 15.0 g/dl (14.0-18.0); Imm Gran Abs Auto 0.02 X10*3/uL (0.00-0.03); Imm Gran Pct Auto 0.3 % (0.0-0.4); Lymphocytes Absolute Auto 1.9 X10*3/uL (1.2-4.9); Mean Corpuscular HGB Conc 34.6 g/dl (31.0-36.0); Mean Corpuscular Hemoglobin 30.2 pg (27.0-33.0); Mean Corpuscular Volume 87.5 fL (80.0-98.0); NRBC Abs Auto 0.000 X10*3/uL (0.0-0.012); NRBC Pct Auto 0.0 /100WBC (0.0-0.2); Platelet Count 195 X10*3/uL (160-400); Red Blood Count 4.96 X10*6/uL (4.60-5.80); White Blood Count 6.9 X10*3/uL (4.8-10.8)
--- OUTSIDE RECORDS SUMMARY | 2025-07-16 18:57 | XMS_ITS | Clinical Summary ---
Author Organization [address] [place] [address] [address] [place] [address] Phone Care Team Providers Care Surface Mount Technology Operator Name Role Phone Luke Andrade Primary Care Provider [phone] Social History Tobacco Use Types Packs/Day Years Used Date Smoking Tobacco: Never Assessed Sex and Gender Information Value Date Recorded Sex Assigned at Not on file Legal Sex Male 3:22 PM EDT Gender Identity Not on file Sexual Orientation Not on file Plan of Treatment Upcoming Encounters Date Type Department Care Team ([facility] st Contact Info) Description 07/21/2025 3:00 PM EST Office Visit Orthopedic Surgery [facility] [address] [phone] Eamon Moore, DPM [address] [phone] Health Maintenance Due Date Last Done Comments [...] patient's age to complete this topic Insurance [facility] Care Teams Surface Mount Technology Operator Relationship Specialty Start Date End Date Luke Andrade DO [address] [place] [address] PCP - General Family Medicine 04/18/25
[2025-07-16 21:53] LABS: Alanine Aminotransferase 93 U/L (0-40); Aspartate Amino Transferase 59 U/L (5-37); Estimated Glomerular Filt Rate > 60
== END 2025-07-16 07:53 | disposition home or self-care (01) ==
LOC: HO.LAB 07:52
PROVIDERS: PCP Nurse Practitioner Family; Visit Provider Internal Medicine Rheumatology
DX: M05.9 Rheumatoid arthritis with rheumatoid factor, unspecified (principal); R74.01 Elevation of levels of liver transaminase levels; Z79.620 Long term (current) use of immunosuppressive biologic; Z79.899 Other long term (current) drug therapy
CPT/HCPCS: 36415; 82565; 84450; 84460; 85025; 85652; 86140

== ENCOUNTER 2025-07-16 07:52 | Outpatient (AMB) | payer OTHER, SELFPAY ==
--- NOTE | 2025-07-16 07:54 | MHC.OFFVIS ---
Vital Signs 07/16/25 07:55 Height 5 ft 7 in Weight 226 lb 10.163 oz BMI 35.5 BP 118/86 Blood Pressure Location Lt brachial Position Sitting Pulse 55 Pulse Source Pulse Oximeter Pulse Oximetry (%) 97 Oxygen Delivery Method Room Air Intake Visit Reasons: 3 Months Intake Note: Patient presents for RA. PTbstates that meloxicam started to give stomach problems Accompanied by: Self / Same As Patient Allergies meloxicam Adverse Reaction (Verified 07/16/25 08:17) pruritis HPI HPI 3 Months: Details: MS none Left wrist pain with increase activity at work. Hard to do a push up specifically keeping wrist extended. No recent infection. He is working out at the gym [facility] Medical History Obesity Sleep apnea HTN (hypertension) CAD (coronary artery disease) Ischemic cardiomyopathy Seropositive rheumatoid arthritis Surgical History S/P skin biopsy Status post cardiac surgery Family History Father CVD (cardiovascular disease) Mother No problems noted. Maternal Grandfather CVD (cardiovascular disease) Social History Alcohol intake: current Alcohol intake frequency: a few times a month Alcohol type: beer and hard liquor Patient Tobacco Use Status: Never used Tobacco e-Cigarette/Vaping Use: Never Used Physical Exam Vital Signs: Last Vital Signs Pulse 55 07/16/25 07:55 BP 118/86 07/16/25 07:55 Pulse Ox 97 07/16/25 07:55 Oxygen Delivery Method Room Air 07/16/25 07:55 BMI result Body Mass Index 35.5 Const Other: General: Comfortable CVS: RRR Respiratory: clear to auscultation bilaterally. Good respiratory effort Skin: No lesions seen MSK: Chronic synovial thickening 3rd right MCP with tenderness on palpation. Synovitis 2nd MCP with tenderness on palpation. Left wrist is tender without synovitis. Right ankle synovitis present. Normal range of motion of upper extremities and lower extremities. Assessment & Plan Assessment & Plan (1) Seropositive rheumatoid arthritis: Comment: Inflammatory arthritis is not controlled with monotherapy on Enbrel. He did not tolerate meloxicam due to in pruritus. He is using ibuprofen and of mg daily to help control his pain. We discussed next steps in treatment with adding DMARD therapy Sulfasalazine. Discussed side effects, benefits and drug monitoring. Rheumatoid arthritis: Erosive, Seropositive (RF, CCP) with PsO. Methotrexate- November 2018-May 2020-elevated liver function. Enbrel- February 2019-May 2020-(worked best according to patient but discontinued due to worsening psoriasis). Humira- January 2021- October 2021- increased psoriasis. Orencia- November 2021 to self stopped by patient. September 2022 due to increased psoriasis. Cimzia-10/2022-05/2023 ongoing arthritis & worsening rashes. Rituximab 07/2023 2 cycles effective (feeling hungry after eating). Enbrel 02/2024 effective (for RA). He felt the best when he was on combination methotrexate and Enbrel but methotrexate was discontinued January 2021 due to persistent mild transaminitis. He also had more weight at the time ? Hepatic steatosis contributing. Code(s): M05.9 - Rheumatoid arthritis with rheumatoid factor, unspecified Category: Medical Plan: Continue Enbrel 50 mg SC once weekly Labs due for drug monitoring on high risk medication ordered today He will continue ibuprofen 800 mg daily After lab results are reviewed, I will send prescription for Sulfasalazine 500 mg twice a day. 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 Aspartate Amino Transferase Today Z79.899 - Other shelter (current) drug therapy Creatinine Today Z79.899 - 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 Alanine Aminotransferase Today Z79.899 - Other shelter (current) drug therapy C Reactive Protein Today Z79.899 - 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
[2025-07-16 07:55] VITALS: BP 118/86; PULSE 55; O2SAT 97; BMI 35.5
--- OUTSIDE RECORDS SUMMARY | 2025-07-16 07:55 | XMS_ITS | Clinical Summary ---
Author Organization [address] [place] [address] Address [address] [place] [address] Phone Care Team Providers Care Repair Servicer Name Role Phone Luke Andrade Primary Care Provider [phone] Social History Tobacco Use Types Packs/Day Years Used Date Smoking Tobacco: Never Assessed Sex and Gender Information Value Date Recorded Sex Assigned at Not on file Legal Sex Male 3:22 PM EDT Gender Identity Not on file Sexual Orientation Not on file Plan of Treatment Upcoming Encounters Date Type Department Care Team ([facility] st Contact Info) Description 07/21/2025 3:00 PM EST Office Visit Orthopedic Surgery [facility] [address] [phone] Eamon Moore, DPM [address] [phone] Health Maintenance Due Date Last Done Comments Colorectal Cancer Screening: Colonoscopy 1978 DTaP,Tdap,and Td Vaccines (1 - Tdap) 1997 Hepatitis B Vaccines (1 of 3 - 19+ 3-dose series) 1997 Depression Screening 09/04/2024 Cholesterol Screening (Lipid Panel) 04/19/2025 HIV Screening 04/19/2025 Hepatitis C Screening 04/19/2025 Social Influencers of Health Screening 04/19/2025 COVID-19 Vaccine ( - 2023-2 5 season) 2025 Influenza Vaccine (#1) 2025 RSV Immunization Adult Patie nts (1 - 1-dose 75+ series) 2053 HIB Vaccines Aged Out No longer eligi ble based on patient's age to complete this topic HPV Vaccines Aged Out No longer eligi ble based on patient's age to complete this topic Hepatitis A Vaccines Aged Out No long er eligible based on patient's age to complete this topic IPV Vaccines Aged Out No longer eligi ble based on patient's age to complete this topic MMR Vaccines Aged Out No longer eligi ble based on patient's age to complete this topic Meningococcal ACWY Vaccine Aged Out N o longer eligible based on patient's age to complete this topic Meningococcal B Vaccine Aged Out No l onger eligible based on patient's age to complete this topic Pneumococcal Vaccine: Pediat rics (0 to 5 Years) and At-Risk Patients (6 to 49 Years) Aged Out No longer eligible b ased on patient's age to complete this topic RSV Immunization Patients Un mino 20 months Aged Out No longer eligible b ased on patient's age to complete this topic Varicella Vaccines Aged Out No longer eligible based on patient's age to complete this topic Insurance [facility] Care Teams Repair Servicer Relationship Specialty Start Date End Date Luke Andrade DO [address] [place] [address] PCP - General Family Medicine 04/18/25
--- OUTSIDE RECORDS SUMMARY | 2025-07-16 07:55 | XMS_ITS ---
Author Name Reno Woods Address Unknown Organization [facility] Care Team Providers Care Skiff Operator Name Role Phone Unavailable Primary Care Physician Unavailab le History Of Present Illness No Data Medications Medication Generic Name RxNorm Strength Strength Unit Route Dose Dose Form Frequency Date Started Date Ended Status Indication Sig betamethaso ne, augmented betameth asone, augmente d 957933 0.05 % Topica l cream 02/16/20 23 suspend ed Appl y twic e mireille y to psor iasi s rash of the extr emit ies for 2 week s on, then take 1 week off. Repe at as need ed. Do not appl y to face or body fold s. calcipotrie ne calcipot riene 314993 0.005 % Topica l cream 06/22/20 21 suspend ed Appl y mireille y to twic e mireille y to psor iati c area s on trun k and extr emit ies. Do not appl y to face . OK to use on week off from topi tate ster oid. clobetasol [place]et[place] 708447 0.05 % Topica l cream BID 12/01/19 21 suspend ed Appl y twic e mireille y to affe cted area s of derm atit is on arms and trun k up to 2 week s then take 1 week off. May repe at as need ed. Avoi d face , axil la and groi n area s. clobetasol clobetas ol 589967 0.05 % Topica l cream 02/05/20 22 suspend ed Appl y BID to affe cted psor iati c area s on trun k and extr emit ies up to 2 week s then take 1 week off. May repe at as need ed. Avoi d face , axil la and groi n area s. clobetasol clobet[place] ol 080615 0.05 % Topica l ointm ent 11/10/19 23 suspend ed Appl y twic e mierille y to affe cted area s up to 2 week s/mo nth as need ed. clobetasol clobetas ol 163041 0.05 % Topica l ointm ent 11/10/19 24 active Appl y twic e mireille y to psor iasi s of trun k and extr emit ies up to 2 week s on, then take 1 week off. Repe at as need ed. desonide desonide 132870 0.05 % Topica l ointm ent 11/10/19 24 active Appl y to rash of ears for 2 week s on, 1 week off. Repe at as need ed Aspirin Low Dose aspirin Oral suspend ed atorvastati n 80 mg Oral table t suspend ed cholecalcif alo (vitamin D3) 50 mcg (2,000 unit) Oral table t suspend ed doxycycline monohydrate doxycycl ine monohydr ate 9993249 100 mg Oral capsu le 06/01/20 23 [...] aneous suspend ed Skyrizi risankiz umab-rza a 0907122 150 mg/mL Subcut aneous pen injec tor [...] Status Date of Diagnosis Date of Resolution Arthritis (disorder) 2894139(SN OMED) Problem active Atopic dermatitis (disorder) 88551057(S NOMED) Diagnosis active 11/29/2018 Psoriasis vulgaris (disorder) 356315560( SNOMED) Diagnosis active 10/30/2018 Other specified dermatitis L30.8(ICD- 10) Diagnosis active 11/05/2019 Inflammatory dermatosis (disorder) 536649132( SNOMED) Diagnosis active 11/30/2020 Disorder of skin (disorder) 42515002(S NOMED) Diagnosis active 11/30/2020 Psoriasis vulgaris (disorder) 294912548( SNOMED) Diagnosis active 11/30/2020 Neoplasm of uncertain behavior of skin (disorder) 43504472(S NOMED) Diagnosis active 11/30/2020 Psoriasis vulgaris (disorder) 909391707( SNOMED) Diagnosis active 03/02/2021 Psoriasis vulgaris (disorder) 527631798( SNOMED) Diagnosis active 06/22/2021 Psoriasis vulgaris (disorder) 735428642( SNOMED) Diagnosis active 10/05/2021 Psoriasis vulgaris (disorder) 653851542( SNOMED) Diagnosis active 02/04/2022 Disorder of pigmentation (disorder) 585372692( SNOMED) Diagnosis active 02/04/2022 Psoriasis vulgaris (disorder) 516238853( SNOMED) Diagnosis active 11/09/2022 Eczema (disorder) 72470955(S NOMED) Problem active Psoriasis (disorder) 3129156(SN OMED) Problem active Psoriasis vulgaris (disorder) ( SNOMED) Diagnosis active 02/15/2023 Psoriasis vulgaris (disorder) ( SNOMED) Diagnosis active 06/01/2023 Psoriasis vulgaris (disorder) 228649714( SNOMED) Diagnosis active 06/08/2023 Psoriasis vulgaris (disorder) 282450852( SNOMED) Diagnosis active 06/16/2023 Psoriasis vulgaris (disorder) 473830291( SNOMED) Diagnosis active 08/14/2023 Psoriasis vulgaris (disorder) 259090064( SNOMED) Diagnosis active 08/11/2023 Psoriasis vulgaris (disorder) 078973962( SNOMED) Diagnosis active 08/09/2023 Psoriasis vulgaris (disorder) 150123286( SNOMED) Diagnosis active 08/16/2023 Psoriasis vulgaris (disorder) 466125469( SNOMED) Diagnosis active 08/18/2023 Psoriasis vulgaris (disorder) 536119778( SNOMED) Diagnosis active 08/21/2023 Psoriasis vulgaris (disorder) ( SNOMED) Diagnosis active 08/30/2023 Psoriasis vulgaris (disorder) 498493711( SNOMED) Diagnosis active 09/01/2023 Psoriasis vulgaris (disorder) 934228740( SNOMED) Diagnosis active 08/09/2023 Psoriasis vulgaris (disorder) 196317201( SNOMED) Diagnosis active 09/06/2023 Psoriasis vulgaris (disorder) 786920052( SNOMED) Diagnosis active 09/11/2023 Psoriasis vulgaris (disorder) 972548082( SNOMED) Diagnosis active 09/13/2023 Psoriasis vulgaris (disorder) 224702994( SNOMED) Diagnosis active 09/15/2023 Psoriasis vulgaris (disorder) 660195551( SNOMED) Diagnosis active 09/20/2023 Psoriasis vulgaris (disorder) 637431486( SNOMED) Diagnosis active 09/25/2023 Psoriasis vulgaris (disorder) 601140144( SNOMED) Diagnosis active 09/27/2023 Psoriasis vulgaris (disorder) 083536041( SNOMED) Diagnosis active 09/08/2023 Psoriasis vulgaris (disorder) 756536685( SNOMED) Diagnosis active 10/02/2023 Psoriasis vulgaris (disorder) 408247241( SNOMED) Diagnosis active 10/04/2023 Psoriasis vulgaris (disorder) 313423058( SNOMED) Diagnosis active 10/06/2023 Psoriasis vulgaris (disorder) 362192684( SNOMED) Diagnosis active 2023 Psoriasis vulgaris (disorder) 995052516( SNOMED) Diagnosis active 10/13/2023 Psoriasis vulgaris (disorder) 583454556( SNOMED) Diagnosis active 10/18/2023 Psoriasis vulgaris (disorder) 184124791( SNOMED) Diagnosis active 10/25/2023 Psoriasis vulgaris (disorder) 980621709( SNOMED) Diagnosis active 10/27/2023 Psoriasis vulgaris (disorder) 613557417( SNOMED) Diagnosis active 10/30/2023 Psoriasis vulgaris (disorder) 450087726( SNOMED) Diagnosis active 11/03/2023 Psoriasis vulgaris (disorder) 844329596( SNOMED) Diagnosis active 11/08/2023 Psoriasis vulgaris (disorder) 379018167( SNOMED) Diagnosis active 11/10/2023 Psoriasis vulgaris (disorder) 222555944( SNOMED) Diagnosis active 11/10/2023 Psoriasis vulgaris (disorder) 985053504( SNOMED) Diagnosis active 10/09/2023 Psoriasis vulgaris (disorder) ( SNOMED) Diagnosis active 11/15/2023 Psoriasis vulgaris (disorder) 059662548( SNOMED) Diagnosis active 11/17/2023 Psoriasis vulgaris (disorder) 767398699( SNOMED) Diagnosis active 03/04/2024 Psoriasis vulgaris (disorder) 576348577( SNOMED) Diagnosis active 03/06/2024 Psoriasis vulgaris (disorder) ( SNOMED) Diagnosis active 03/11/2024 Psoriasis vulgaris (disorder) 390759697( SNOMED) Diagnosis active 03/13/2024 Psoriasis vulgaris (disorder) ( SNOMED) Diagnosis active 03/15/2024 Psoriasis vulgaris (disorder) ( SNOMED) Diagnosis active 03/18/2024 Psoriasis vulgaris (disorder) ( SNOMED) Diagnosis active 03/20/2024 Psoriasis vulgaris (disorder) 887142482( SNOMED) Diagnosis active 03/22/2024 Psoriasis vulgaris (disorder) 541329724( SNOMED) Diagnosis active 03/25/2024 Psoriasis vulgaris (disorder) 591088662( SNOMED) Diagnosis active 03/27/2024 Psoriasis vulgaris (disorder) 455103307( SNOMED) Diagnosis active 03/29/2024 Psoriasis vulgaris (disorder) 043226807( SNOMED) Diagnosis active 04/02/2024 Psoriasis vulgaris (disorder) 200241746( SNOMED) Diagnosis active 04/08/2024 Psoriasis vulgaris (disorder) 219546350( SNOMED) Diagnosis active 04/10/2024 Psoriasis vulgaris (disorder) 947638781( SNOMED) Diagnosis active 04/15/2024 Psoriasis vulgaris (disorder) 444174724( SNOMED) Diagnosis active 04/17/2024 Psoriasis vulgaris (disorder) 897255803( SNOMED) Diagnosis active 04/19/2024 Psoriasis vulgaris (disorder) 380592529( SNOMED) Diagnosis active 04/22/2024 Psoriasis vulgaris (disorder) 972175705( SNOMED) Diagnosis active 04/24/2024 Psoriasis vulgaris (disorder) 092237323( SNOMED) Diagnosis active 04/26/2024 Psoriasis vulgaris (disorder) 938292580( SNOMED) Diagnosis active 04/29/2024 Psoriasis vulgaris (disorder) 811952610( SNOMED) Diagnosis active 05/01/2024 Psoriasis vulgaris (disorder) 480595459( SNOMED) Diagnosis active 05/03/2024 Psoriasis vulgaris (disorder) ( SNOMED) Diagnosis active 05/08/2024 Psoriasis vulgaris (disorder) 423456549( SNOMED) Diagnosis active 05/10/2024 Psoriasis vulgaris (disorder) ( SNOMED) Diagnosis active 05/15/2024 Psoriasis vulgaris (disorder) ( SNOMED) Diagnosis active 05/17/2024 Psoriasis vulgaris (disorder) ( SNOMED) Diagnosis active 05/20/2024 Psoriasis vulgaris (disorder) 643331208( SNOMED) Diagnosis active 05/22/2024 Psoriasis vulgaris (disorder) ( SNOMED) Diagnosis active 05/24/2024 Psoriasis vulgaris (disorder) ( SNOMED) Diagnosis active 05/28/2024 Psoriasis vulgaris (disorder) ( SNOMED) Diagnosis active 05/28/2024 History of hypertension (situation) 845816222( SNOMED) Problem active Hypercholesterolemia (disorder) 16024532(S NOMED) Problem active History of clinical finding in subject (situation) 013815016( SNOMED) Problem active Psoriasis vulgaris (disorder) 602387742( SNOMED) Diagnosis active 05/30/2024 Psoriasis vulgaris (disorder) ( SNOMED) Diagnosis active 06/04/2024 Psoriasis vulgaris (disorder) 870796284( SNOMED) Diagnosis active 06/06/2024 Psoriasis vulgaris (disorder) 200499651( SNOMED) Diagnosis active 06/10/2024 Psoriasis vulgaris (disorder) 087371508( SNOMED) Diagnosis active 06/12/2024 Psoriasis vulgaris (disorder) 146786908( SNOMED) Diagnosis active 06/14/2024 Psoriasis vulgaris (disorder) 608534264( SNOMED) Diagnosis active 06/17/2024 Psoriasis vulgaris (disorder) 928788721( SNOMED) Diagnosis active 06/19/2024 Psoriasis vulgaris (disorder) 861414071( SNOMED) Diagnosis active 06/21/2024 Psoriasis vulgaris (disorder) 531203688( SNOMED) Diagnosis active 06/24/2024 Psoriasis vulgaris (disorder) 874515806( SNOMED) Diagnosis active 06/26/2024 Psoriasis vulgaris (disorder) 239241518( SNOMED) Diagnosis active 06/28/2024 Psoriasis vulgaris (disorder) 469287266( SNOMED) Diagnosis active 07/01/2024 Psoriasis vulgaris (disorder) 301891649( SNOMED) Diagnosis active 07/03/2024 Psoriasis vulgaris (disorder) 279366705( SNOMED) Diagnosis active 07/05/2024 Psoriasis vulgaris (disorder) 797225733( SNOMED) Diagnosis active 07/08/2024 Psoriasis vulgaris (disorder) 621753978( SNOMED) Diagnosis active 07/10/2024 Psoriasis vulgaris (disorder) 968189554( SNOMED) Diagnosis active 07/15/2024 Psoriasis vulgaris (disorder) 713702275( SNOMED) Diagnosis active 07/12/2024 Psoriasis vulgaris (disorder) 439954903( SNOMED) Diagnosis active 07/17/2024 Psoriasis vulgaris (disorder) 212525446( SNOMED) Diagnosis active 07/19/2024 Psoriasis vulgaris (disorder) 314147418( SNOMED) Diagnosis active 07/22/2024 Psoriasis vulgaris (disorder) 627049443( SNOMED) Diagnosis active 07/24/2024 Psoriasis vulgaris (disorder) 136531567( SNOMED) Diagnosis active 07/26/2024 Psoriasis vulgaris (disorder) 095459195( SNOMED) Diagnosis active 07/29/2024 Psoriasis vulgaris (disorder) 752499444( SNOMED) Diagnosis active 07/31/2024 Psoriasis vulgaris (disorder) 192637014( SNOMED) Diagnosis active 08/05/2024 Psoriasis vulgaris (disorder) 844510804( SNOMED) Diagnosis active 08/07/2024 Psoriasis vulgaris (disorder) 741095602( SNOMED) Diagnosis active 08/09/2024 Psoriasis vulgaris (disorder) 963454317( SNOMED) Diagnosis active 08/12/2024 Psoriasis vulgaris (disorder) 521578646( SNOMED) Diagnosis active 08/14/2024 Psoriasis vulgaris (disorder) 666955191( SNOMED) Diagnosis active 08/19/2024 Psoriasis vulgaris (disorder) 899527284( SNOMED) Diagnosis active 08/16/2024 Psoriasis vulgaris (disorder) 508918458( SNOMED) Diagnosis active 08/23/2024 Psoriasis vulgaris (disorder) 018488300( SNOMED) Diagnosis active 08/26/2024 Psoriasis vulgaris (disorder) 228994052( SNOMED) Diagnosis active 08/27/2024 Psoriasis vulgaris (disorder) 669367926( SNOMED) Diagnosis active 09/02/2024 Psoriasis vulgaris (disorder) 733313130( SNOMED) Diagnosis active 09/06/2024 Psoriasis vulgaris (disorder) 991535734( SNOMED) Diagnosis active 09/09/2024 Psoriasis vulgaris (disorder) 843475563( SNOMED) Diagnosis active 09/11/2024 Psoriasis vulgaris (disorder) 996768353( SNOMED) Diagnosis active 09/13/2024 Psoriasis vulgaris (disorder) 467488434( SNOMED) Diagnosis active 09/16/2024 Psoriasis vulgaris (disorder) 248209642( SNOMED) Diagnosis active 09/18/2024 Psoriasis vulgaris (disorder) 577463129( SNOMED) Diagnosis active 09/24/2024 Psoriasis vulgaris (disorder) 526630060( SNOMED) Diagnosis active 09/27/2024 Psoriasis vulgaris (disorder) 845686648( SNOMED) Diagnosis active 09/30/2024 Psoriasis vulgaris (disorder) 866751338( SNOMED) Diagnosis active 10/02/2024 Psoriasis vulgaris (disorder) 760964205( SNOMED) Diagnosis active 10/04/2024 Psoriasis vulgaris (disorder) 254557446( SNOMED) Diagnosis active 10/07/2024 Psoriasis vulgaris (disorder) 771651057( SNOMED) Diagnosis active 10/09/2024 Psoriasis vulgaris (disorder) 953654072( SNOMED) Diagnosis active 10/11/2024 Psoriasis vulgaris (disorder) 819495919( SNOMED) Diagnosis active 10/15/2024 Psoriasis vulgaris (disorder) 585894226( SNOMED) Diagnosis active 10/17/2024 Psoriasis vulgaris (disorder) 392300921( SNOMED) Diagnosis active 10/22/2024 Psoriasis vulgaris (disorder) 275722284( SNOMED) Diagnosis active 10/24/2024 Psoriasis vulgaris (disorder) 374425400( SNOMED) Diagnosis active 10/28/2024 Psoriasis vulgaris (disorder) 136713644( SNOMED) Diagnosis active 10/30/2024 Psoriasis vulgaris (disorder) 838024327( SNOMED) Diagnosis active 11/04/2024 Psoriasis vulgaris (disorder) 102632508( SNOMED) Diagnosis active 11/01/2024 Psoriasis vulgaris (disorder) 158855661( SNOMED) Diagnosis active 11/08/2024 Psoriasis vulgaris (disorder) 056018138( SNOMED) Diagnosis active 11/11/2024 Psoriasis vulgaris (disorder) 929864015( SNOMED) Diagnosis active 11/15/2024 Psoriasis vulgaris (disorder) 438557221( SNOMED) Diagnosis active 11/19/2024 Psoriasis vulgaris (disorder) 731333738( SNOMED) Diagnosis active 11/22/2024 Psoriasis vulgaris (disorder) 431960626( SNOMED) Diagnosis active 11/26/2024 Psoriasis vulgaris (disorder) 106377408( SNOMED) Diagnosis active 11/29/2024 Psoriasis vulgaris (disorder) 454309098( SNOMED) Diagnosis active 12/03/2024 Psoriasis vulgaris (disorder) 362208158( SNOMED) Diagnosis active 12/06/2024 Psoriasis vulgaris (disorder) 780193521( SNOMED) Diagnosis active 12/10/2024 Psoriasis vulgaris (disorder) 130199780( SNOMED) Diagnosis active 12/13/2024 Psoriasis vulgaris (disorder) 965317320( SNOMED) Diagnosis active 12/17/2024 Psoriasis vulgaris (disorder) 805567159( SNOMED) Diagnosis active 12/20/2024 Psoriasis vulgaris (disorder) 738299309( SNOMED) Diagnosis active 12/27/2024 Psoriasis vulgaris (disorder) 894038685( SNOMED) Diagnosis active 12/31/2024 Psoriasis vulgaris (disorder) 670354174( SNOMED) Diagnosis active 01/03/2025 Psoriasis vulgaris (disorder) 706361203( SNOMED) Diagnosis active 01/07/2025 Psoriasis vulgaris (disorder) 292809169( SNOMED) Diagnosis active 01/10/2025 Psoriasis vulgaris (disorder) 130751635( SNOMED) Diagnosis active 01/22/2025 Psoriasis vulgaris (disorder) 688782637( SNOMED) Diagnosis active 01/28/2025 Psoriasis vulgaris (disorder) 273394920( SNOMED) Diagnosis active 01/31/2025 Psoriasis vulgaris (disorder) 166095860( SNOMED) Diagnosis active 02/10/2025 Psoriasis vulgaris (disorder) 291343577( SNOMED) Diagnosis active 02/14/2025 Psoriasis vulgaris (disorder) 036905647( SNOMED) Diagnosis active 02/18/2025 Psoriasis vulgaris (disorder) 642612503( SNOMED) Diagnosis active 02/12/2025 Psoriasis vulgaris (disorder) 591027538( SNOMED) Diagnosis active 02/20/2025 Psoriasis vulgaris (disorder) 857008590( SNOMED) Diagnosis active 02/25/2025 Psoriasis vulgaris (disorder) 540147744( SNOMED) Diagnosis active 02/27/2025 Psoriasis vulgaris (disorder) 822259996( SNOMED) Diagnosis active 02/28/2025 Psoriasis vulgaris (disorder) 036813817( SNOMED) Diagnosis active 02/28/2025 Psoriasis vulgaris (disorder) 352476018( SNOMED) Diagnosis active 03/04/2025 Psoriasis vulgaris (disorder) 368806475( SNOMED) Diagnosis active 03/06/2025 Psoriasis vulgaris (disorder) 872501697( SNOMED) Diagnosis active 03/14/2025 Psoriasis vulgaris (disorder) 314933399( SNOMED) Diagnosis active 03/25/2025 Psoriasis vulgaris (disorder) 297358073( SNOMED) Diagnosis active 04/01/2025 Psoriasis vulgaris (disorder) 697480837( SNOMED) Diagnosis active 04/04/2025 Psoriasis vulgaris (disorder) 070881117( SNOMED) Diagnosis active 04/08/2025 Psoriasis vulgaris (disorder) 432744197( SNOMED) Diagnosis active 04/11/2025 Psoriasis vulgaris (disorder) 433473835( SNOMED) Diagnosis active 04/15/2025 Psoriasis vulgaris (disorder) 615255188( SNOMED) Diagnosis active 04/18/2025 Psoriasis vulgaris (disorder) 320336968( SNOMED) Diagnosis active 04/22/2025 Psoriasis vulgaris (disorder) 321342591( SNOMED) Diagnosis active 04/25/2025 Psoriasis vulgaris (disorder) 423660332( SNOMED) Diagnosis active 04/29/2025 Psoriasis vulgaris (disorder) 988017319( SNOMED) Diagnosis active 05/06/2025 Psoriasis vulgaris (disorder) 481846634( SNOMED) Diagnosis active 05/13/2025 Psoriasis vulgaris (disorder) 981704193( SNOMED) Diagnosis active 05/20/2025 Psoriasis vulgaris (disorder) 425010387( SNOMED) Diagnosis active 05/27/2025 Psoriasis vulgaris (disorder) 364283880( SNOMED) Diagnosis active 06/04/2025 Psoriasis vulgaris (disorder) 328185494( SNOMED) Diagnosis active 06/10/2025 Psoriasis vulgaris (disorder) 080973097( SNOMED) Diagnosis active 06/13/2025 Psoriasis vulgaris (disorder) 027847688( SNOMED) Diagnosis active 06/17/2025 Psoriasis vulgaris (disorder) 045570270( SNOMED) Diagnosis active 06/24/2025 Psoriasis vulgaris (disorder) 291085104( SNOMED) Diagnosis active 07/01/2025 Psoriasis vulgaris (disorder) 615846934( SNOMED) Diagnosis active 06/27/2025 Psoriasis vulgaris (disorder) 782138578( SNOMED) Diagnosis active 07/04/2025 Psoriasis vulgaris (disorder) 956838810( SNOMED) Diagnosis active 07/08/2025 Psoriasis vulgaris (disorder) 719017856( SNOMED) Diagnosis active 07/15/2025 Results No data Encounters Service provided at [facility], [address] [place] [address], [address], [place], [place] [id number]. Office phonenumber is [phone]. Office fax number is [phone]. Encounter Diagnosis Location Date / Time Type Disc harge Status Psoriasis (L40.0) [facility] 07/15/2025 13:15:00 UTC NI Reason For Referral No data Procedures [...] Shave biopsy (procedure) 11/30/2020 12:0 0 am UTC Documentation of past medical history (p rocedure) [...] Assessment 1.PsoriasisPhototherapy Treatment: Total Body Time - 2:45 min; Comments on Previous Treatment - 2 xweekly increase by 20 mj as tolerated only if pt allows; Protocol - Photochemotherapy: Mineral Oil and NBUVB; Location (Body Touches will Override) - full body; Total Treatment Time - 2:45 min; TotalBody Energy - 600mj; Skin Type - I; Treatment Number - 165; Render Post-care in the Note - no. Plan of Care Code Detail Instructions 052936 clobetasol 0.05 % topical ointme nt Apply twice daily to psoriasis of trunk and extremities up to 2 weeks on, then take 1 week off. Repeat as needed. 761348 clobetasol 0.05 % topical ointme nt Apply twice daily to psoriasis of trunk and extremities up to 2 weeks on, then take 1 week off. Repeat as needed. 465806 clobetasol 0.05 % topical ointme nt Apply twice daily to psoriasis of trunk and extremities up to 2 weeks on, then take 1 week off. Repeat as needed. 221654 desonide 0.05 % topical ointment Apply to rash of ears for 2 weeks on, 1 week off. Repeat as needed 6440948 Skyrizi 150 mg/mL larry bcutaneous pen injector Inject 1 pen (150 mg) SQ into the lateral thigh on week 0, week 4, then every 12 weeks thereafter. 6946115 Skyrizi 150 mg/mL larry bcutaneous pen injector Inject 1 pen (150 mg) SQ into the lateral thigh on week 0, week 4, then every 12 weeks thereafter. 9026852 doxycycline monohydrate 100 mg c apsule Take one capsule by mouth with food twice daily 826514 betamethasone, augme nted 0.05 % topical cream Apply twice daily to psoriasis rash of the extremities for 2 weeks on, then take 1 week off. Repeat as needed. Do not apply to face or body folds. 965733 clobetasol 0.05 % topical ointme nt Apply twice daily to affected areas up to 2 weeks/month as needed. 318278 clobetasol 0.05 % topical cream Apply twice daily to psoriasis up to 2 weeks/month as needed. 997653 clobetasol 0.05 % topical cream Apply BID to affected psoriatic areas on trunk and extremities up to 2 weeks then take 1 week off. May repeat as needed. Avoid face, axilla and groin areas. 542461 clobetasol 0.05 % topical cream Apply BID to affected psoriatic areas on trunk and extremities up to 2 weeks then take 1 week off. May repeat as needed. Avoid face, axilla and groin areas. 043756 calcipotriene 0.005 % topical cr eam Apply daily to twice daily to psoriatic areas on trunk and extremities. Do not apply to face. OK to use on week off from topical steroid. 706818 clobetasol 0.05 % topical cream Apply twice daily to affected areas of dermatitis on arms and trunk up to 2 weeks then take 1 week off. May repeat as needed. Avoid face, axilla and groin areas. Instructions No Data Social History Code Activity Start Date End Date 4908853 (SNOMED) Former smoker Sex Male Sexual orientation Unspecified Gender identity Unspecified Vital Signs No data Insurances Coverage Status Coverage Type Relationship to Subscriber Member Identifier Subscriber Identifier Group Identifier Payer Identifier Inactive 1 Self [id number] Inactive Self [id number] Inactive Self [id number] Active Self [id number] VACCN Inactive Self [id number] VACCN
== END 2025-07-16 08:29 | disposition home or self-care (01) ==
LOC: HO.RHES 07:53
PROVIDERS: PCP Nurse Practitioner Family; Visit Provider Internal Medicine Rheumatology
DX: M05.9 Rheumatoid arthritis with rheumatoid factor, unspecified (principal); R74.01 Elevation of levels of liver transaminase levels; Z79.899 Other long term (current) drug therapy
CPT/HCPCS: 99214